=== PATIENT | male | born 1930 | race Caucasian/White ===

== ENCOUNTER → 2016-11-24 | Outpatient (CLI) | payer MEDICARE ==
[2016-11-24 09:43] LABS: CH 30.3; CHCM 32.6; HCT 45.2 % (39.0-53.0); HDW 2.59; HGB 14.8 gm/dL (13.0-17.5); MCH 30.6 pg (25.0-35.0); MCHC 32.8 g/dL (31.0-37.0); MCV 93.3 fL (80.0-100.0); RBC 4.84 m/uL (4.30-5.90); RDW 14.4 % (11.5-15.5); WBC 4.3 k/uL (3.8-10.6)
[2016-11-24 10:23] LABS: ALT 34 U/L (21-72); AST 28 U/L (17-59); Alkaline Phosphatase 56 U/L (38-126); Anion Gap 13 mmol/L; Blood Urea Nitrogen 13 mg/dL (9-20); Calcium 9.9 mg/dL (8.4-10.2); Carbon Dioxide 26 mmol/L (22-30); Chloride 102 mmol/L (98-107); Cholesterol 177 mg/dL (<200); Glucose 202 mg/dL (74-99); HDL Cholesterol 47 mg/dL (40-60); Non-African American GFR(MDRD) >60 (>60 ml/min/1.73 sqM); Potassium 4.5 mmol/L (3.5-5.1); Sodium 141 mmol/L (137-145); Total Bilirubin 0.8 mg/dL (0.2-1.3); Total Protein 7.3 g/dL (6.3-8.2); Triglycerides 154 mg/dL (<150)
[2016-11-24 12:36] LABS: Hemoglobin A1C 7.6 % (4.2-6.1)
== END | disposition home or self-care (01) ==
LOC: LABWHC1 08:22
PROVIDERS: ATTEND Internal Medicine
DX: E11.9 Type 2 diabetes mellitus without complications (principal); I25.10 Atherosclerotic heart disease of native coronary artery without angina pectoris; I11.9 Hypertensive heart disease without heart failure
CPT/HCPCS: 36415; 80053; 80061; 82043; 83036; 84439; 84443; 85027

== ENCOUNTER → 2017-04-19 | Outpatient (CLI) | payer MEDICARE ==
[2017-04-19 10:07] LABS: Blood Urea Nitrogen 17 mg/dL (9-20); Non-African American GFR(MDRD) >60 (>60 ml/min/1.73 sqM)
--- NOTE | 2017-04-19 12:00 | CT ---
EXAMINATION TYPE: CT angio chest DATE OF EXAM: 04/19/2017 COMPARISON: 04/13/17 HISTORY: Follow up thoracic aneurysm CT DLP: 1042 mGycm CONTRAST: CTA thoracic aorta with 3-D reconstruction is performed and without and with IV Contrast, patient inj ected with 100 mL of Omnipaque 350. Contrast CTA of the thoracic aorta was performed from the lung apex through the upper abdomen. 3D re construction imaging obtained at a separate workstation. CT Chest: THORACIC AORTA: Stable ascending thoracic aortic aneurysm at 4.1 x 4.1 cm versus 4.1 x 4.1 cm previou sly. There appears to be increasing size of the descending thoracic aortic aneurysm with current soledad urement of 6.2 x 6.1 cm versus 5.9 x 5.9 cm. There also appears to be increasing mural thrombus. LUNGS: The lungs are clear and free of infiltrate or atelectasis. No pulmonary nodule or mass is det ected. COPD changes. MEDIASTINUM: No evidence for mediastinal hematoma. The heart is not enlarged. No evidence for med iastinal mass or adenopathy. Stable right adrenal nodule measuring 2.6 cm. HILAR STRUCTURES: No evidence for mass. No hilar adenopathy is appreciated. OTHER: No change in right adrenal nodule measuring 2.9 cm. Multiple renal cysts noted. The gallbladde r is filled with calcified gallstones. IMPRESSION- 1. No slight increase in size and ascending thoracic aortic aneurysm as discussed above. 2. Stable ascending thoracic aortic aneurysm. 3. Stable right adrenal nodule, right thyroid nodule as well as renal cysts.
== END | disposition home or self-care (01) ==
LOC: RADCTMAIN 09:36
PROVIDERS: ATTEND Thoracic Surgery (Cardiothoracic Vascular Surgery)
DX: I71.2 Thoracic aortic aneurysm, without rupture (principal)
CPT/HCPCS: 82565; 84520; 71275; 36415; Q9967

== ENCOUNTER → 2017-09-20 | Outpatient (CLI) | payer MEDICARE ==
[2017-09-20 08:22] LABS: ALT 30 U/L (21-72); AST 25 U/L (17-59); Albumin 4.2 g/dL (3.5-5.0); Alkaline Phosphatase 53 U/L (38-126); Anion Gap 10 mmol/L; Blood Urea Nitrogen 19 mg/dL (9-20); Calcium 10.1 mg/dL (8.4-10.2); Carbon Dioxide 27 mmol/L (22-30); Chloride 104 mmol/L (98-107); Cholesterol 200 mg/dL (<200); Glucose 171 mg/dL (74-99); HDL Cholesterol 40 mg/dL (40-60); LDL Cholesterol,Calculated 123 mg/dL (0-99); Potassium 4.5 mmol/L (3.5-5.1); Sodium 141 mmol/L (137-145); Total Bilirubin 0.7 mg/dL (0.2-1.3); Total Protein 6.8 g/dL (6.3-8.2); Triglycerides 186 mg/dL (<150)
[2017-09-20 08:35] LABS: HCT 44.6 % (39.0-53.0); HGB 14.2 gm/dL (13.0-17.5); MCHC 31.9 g/dL (31.0-37.0); Mean Platelet Volume 8.4; Platelet Count 123 k/uL (150-450); WBC 4.3 k/uL (3.8-10.6)
[2017-09-20 08:37] LABS: T4, Free (Free Thyroxine) 0.88 ng/dL (0.78-2.19)
[2017-09-20 19:43] LABS: Hemoglobin A1C 7.8 % (4.0-6.0)
== END | disposition home or self-care (01) ==
LOC: LABWHC1 07:44
PROVIDERS: ATTEND Internal Medicine
DX: Z00.00 Encounter for general adult medical examination without abnormal findings (principal); E11.9 Type 2 diabetes mellitus without complications; I11.9 Hypertensive heart disease without heart failure; K21.9 Gastro-esophageal reflux disease without esophagitis; E78.2 Mixed hyperlipidemia
CPT/HCPCS: 36415; 80053; 80061; 82043; 82272; 82570; 83036; 84439; 84443; 85027

== ENCOUNTER 2018-03-05 18:59 | Inpatient (IN) | payer MEDICARE ==
--- NOTE | 2018-03-05 19:23 | ED ---
Neuro HPI - General Chief Complaint: Neuro Symptoms/Deficit Stated Complaint: cannot stand/High BP Time Seen by Provider: 03/05/18 19:13 Source: patient, family, RN notes reviewed Mode of arrival: wheelchair Limitations: no limitations - History of Present Illness Is the patient presenting with stroke symptoms?: No Initial Comments: This is a 70-year-old male who was brought in for evaluation by family due to difficulty walking all day pain is had in be lethargic. place a headache no nausea vomiting diarrhea no focal weakness is been somewhat diminished. His concern is due to history of aneurysms. No other complaints no history of trauma no falls - Related Data Home Medications: Home Medications Medication Instructions Recorded Confirmed Calcium Carb-Vit D 500Mg-200Un 500 mg PO DAILY 11/08/13 03/05/18 [Oscal 500+D] Enalapril [Vasotec] 10 mg PO BID 11/08/13 03/05/18 Fish Oil/Dha/Epa [Fish Oil 1,200 1 cap PO DAILY 11/08/13 03/05/18 mg Fish Oil] Levothyroxine Sodium [Synthroid] 50 mcg PO DAILY 11/08/13 03/05/18 Meloxicam 15 mg PO DAILY 11/08/13 03/05/18 Metoprolol Tartrate [Lopressor] 50 mg PO BID 11/08/13 03/05/18 Multivitamin [Multivitamins] 1 each PO DAILY 11/08/13 03/05/18 Simvastatin [Zocor] 20 mg PO HS 11/08/13 03/05/18 metFORMIN HCL [Glucophage] 1,000 mg PO BID 11/08/13 03/05/18 Aspirin 81 mg PO DAILY 03/05/18 03/05/18 Insulin NPH Hum/Reg Insulin Hm 30 unit SQ 03/05/18 03/05/18 [NovoLIN 70-30 100 UNIT/ML VIAL] Insulin NPH Hum/Reg Insulin Hm [facility] SQ [facility] 03/05/18 03/05/18 [NovoLIN 70-30 100 UNIT/ML VIAL] Lisinopril [Zestril] 20 mg PO DAILY 03/05/18 03/05/18 Omeprazole [PriLOSEC] 40 mg PO AC-BRKFST 03/05/18 03/05/18 Allergies/Adverse Reactions: Allergies Allergy/AdvReac Type Severity Reaction Status Date / Time acetaminophen [From Vicodin] Allergy Unknown Verified 03/05/18 19:12 hydrocodone bitartrate Allergy Unknown Verified 03/05/18 19:12 [From Vicodin] ketorolac Allergy Unknown Verified 03/05/18 19:12 meperidine HCl [From Demerol] Allergy Unknown Verified 03/05/18 19:12 propoxyphene Allergy Unknown Verified 03/05/18 19:12 Review of Systems ROS Statement: Those systems with pertinent positive or pertinent negative responses have been documented in the HPI. ROS Other: All systems not noted in ROS Statement are negative. General Exam - General Exam Comments Initial Comments: This is a well-developed well-nourished awake alert male Limitations: no limitations General appearance: alert, in no apparent distress Head exam: Present: atraumatic, normocephalic, normal inspection Eye exam: Present: normal appearance, PERRL, EOMI. Absent: scleral icterus, conjunctival injection, periorbital swelling ENT exam: Present: mucous membranes dry Neck exam: Present: normal inspection, full ROM, other (No stridor JVD or bruits ). Absent: tenderness, meningismus, lymphadenopathy Respiratory exam: Present: normal lung sounds bilaterally. Absent: respiratory distress, wheezes, rales, rhonchi, stridor Cardiovascular Exam: Present: regular rate, normal rhythm, normal heart sounds. Absent: systolic murmur, diastolic murmur, rubs, gallop, clicks GI/Abdominal exam: Present: soft, normal bowel sounds. Absent: distended, tenderness, guarding, rebound, rigid Extremities exam: Present: normal inspection, full ROM, normal capillary refill. Absent: tenderness, pedal edema, joint swelling, calf tenderness Back exam: Present: normal inspection Neurological exam: Present: alert, oriented X3, CN II-XII intact Psychiatric exam: Present: normal affect, normal mood Skin exam: Present: warm, dry, intact, normal color. Absent: rash Stroke MDM - Lab Data Result diagrams: 03/05/18 19:19 03/05/18 19:19 Lab Results 03/05/18 03/05/18 03/05/18 Range/Units 19:19 19:19 19:19 WBC 4.6 (3.8-10.6) k/uL RBC 4.81 (4.30-5.90) m/uL Hgb 14.2 (13.0-17.5) gm/dL Hct 44.6 (39.0-53.0) % MCV 92.7 (80.0-100.0) fL MCH 29.6 (25.0-35.0) pg MCHC 31.9 (31.0-37.0) g/dL RDW 14.9 (11.5-15.5) % Plt Count 114 L (150-450) k/uL Neutrophils % 71 % Lymphocytes % 17 % Monocytes % 7 % Eosinophils % 3 % Basophils % 0 % Neutrophils # 3.3 (1.3-7.7) k/uL Lymphocytes # 0.8 L (1.0-4.8) k/uL Monocytes # 0.3 (0-1.0) k/uL Eosinophils # 0.1 (0-0.7) k/uL Basophils # 0.0 (0-0.2) k/uL PT (9.0-12.0) sec INR (<1.2) APTT (22.0-30.0) sec Sodium 139 (137-145) mmol/L Potassium 4.5 (3.5-5.1) mmol/L Chloride 103 (98-107) mmol/L Carbon Dioxide 21 L (22-30) mmol/L Anion Gap 15 mmol/L BUN 24 H (9-20) mg/dL Creatinine 0.80 (0.66-1.25) mg/dL Est GFR (CKD-EPI)AfAm >90 (>60 ml/min/1.73 sqM) Est GFR (CKD-EPI)NonAf 81 (>60 ml/min/1.73 sqM) Glucose 148 H (74-99) mg/dL POC Glucose (mg/dL) (75-99) mg/dL POC Glu [employer] Sales Rep ID Calcium 10.5 H (8.4-10.2) mg/dL Total Bilirubin 0.6 (0.2-1.3) mg/dL AST 29 (17-59) U/L ALT 33 (21-72) U/L Alkaline Phosphatase 38 (38-126) U/L Total Creatine Kinase 210 H (55-170) U/L CK-MB (CK-2) 4.3 H* (0.0-2.4) ng/mL CK-MB (CK-2) Rel Index 2.0 Troponin I 0.021 (0.000-0.034) ng/mL Total Protein 7.0 (6.3-8.2) g/dL Albumin 4.4 (3.5-5.0) g/dL 03/05/18 03/05/18 Range/Units 19:19 19:19 WBC (3.8-10.6) k/uL RBC (4.30-5.90) m/uL Hgb (13.0-17.5) gm/dL Hct (39.0-53.0) % MCV (80.0-100.0) fL MCH (25.0-35.0) pg MCHC (31.0-37.0) g/dL RDW (11.5-15.5) % Plt Count (150-450) k/uL Neutrophils % % Lymphocytes % % Monocytes % % Eosinophils % % Basophils % % Neutrophils # (1.3-7.7) k/uL Lymphocytes # (1.0-4.8) k/uL Monocytes # (0-1.0) k/uL Eosinophils # (0-0.7) k/uL Basophils # (0-0.2) k/uL PT 11.5 (9.0-12.0) sec INR 1.2 H (<1.2) APTT 25.1 (22.0-30.0) sec Sodium (137-145) mmol/L Potassium (3.5-5.1) mmol/L Chloride (98-107) mmol/L Carbon Dioxide (22-30) mmol/L Anion Gap mmol/L BUN (9-20) mg/dL Creatinine (0.66-1.25) mg/dL Est GFR (CKD-EPI)AfAm (>60 ml/min/1.73 sqM) Est GFR (CKD-EPI)NonAf (>60 ml/min/1.73 sqM) Glucose (74-99) mg/dL POC Glucose (mg/dL) 143 H (75-99) mg/dL POC Glu [employer] Sales Rep ID Dahiana, Marni Calcium (8.4-10.2) mg/dL Total Bilirubin (0.2-1.3) mg/dL AST (17-59) U/L ALT (21-72) U/L Alkaline Phosphatase (38-126) U/L Total Creatine Kinase (55-170) U/L CK-MB (CK-2) (0.0-2.4) ng/mL CK-MB (CK-2) Rel Index Troponin I (0.000-0.034) ng/mL Total Protein (6.3-8.2) g/dL Albumin (3.5-5.0) g/dL - NIH Stroke Scale 1a. Level of Consciousness: (0) alert 1b. LOC Questions: (0) answers correctly 1c. LOC Commands: (0) performs tasks correctly 2. Best Gaze: (0) normal 3. Visual: (0) no visual loss 4. Facial Palsy: (0) normal symmetrical movement 5a. Motor Arm Left: (0) no drift 5b. Motor Arm Right: (0) no drift 6a. Motor Leg Left: (0) no drift 6b. Motor Leg Right: (0) no drift 7. Limb Ataxia: (0) absent 8. Sensory: (0) normal 9. Best Language: (0) no aphasia 10. Dysarthria: (1) mild/moderate dysarthria 11. Extinction/Inattention: (0) no abnormality - Medical Decision Making Reevaluation patient reveals no changes I did discuss the findings with the patient's family and the patient he will be admitted he does demonstrate evidence of pneumonia patient the x-ray report. He also demonstrate dehydration. He will be admitted case is discussed with Dr. Waldrop - EKG Data -: EKG Interpreted by In EKG shows normal: sinus rhythm (Sinus rhythm with first-degree AV block rate was 68. Interval 398 QRS duration 104 QT since QTC 4:30/457, incomplete right bundle-branch block race. [place]el RVH poor R-wave progression) Past Medical History Past Medical History: Diabetes Mellitus, Hyperlipidemia, Hypertension, Prostate Disorder, Thyroid Disorder Additional Past Medical History / Comment(s): aortic aneurysm, arthritis, hematemesis History of Any Multi-Drug Resistant Organisms: None Reported Additional Past Surgical History / Comment(s): left knee surg, aaa repair, prostate surg Past Anesthesia/Blood Transfusion Reactions: No Reported Reaction Past Psychological History: No Psychological Hx Reported Smoking Status: Former smoker Past Alcohol Use History: None Reported Past Drug Use History: None Reported - Past Family History Father Family Medical History: No Reported History Course Vital Signs 03/05/18 03/05/18 03/05/18 19:06 19:50 20:40 Temperature 98.1 F Pulse Rate 62 65 55 L Respiratory 16 18 18 Rate Blood Pressure 179/84 175/90 166/80 O2 Sat by Pulse 95 95 96 Oximetry 03/05/18 21:40 Temperature 98.2 F Pulse Rate 54 L Respiratory 18 Rate Blood Pressure 188/91 O2 Sat by Pulse 93 L Oximetry Disposition Clinical Impression: Pneumonia, Dehydration Disposition: ADMITTED IP TO THIS HOSP Condition: Stable Referrals: Len Johnson MD [Primary Care Provider] - 1-2 days
[2018-03-05 19:28] LABS: Basophils % (A) 0 %; Eosinophils # (A) 0.1 k/uL (0-0.7); Eosinophils % (A) 3 %; HCT 44.6 % (39.0-53.0); HGB 14.2 gm/dL (13.0-17.5); Lymphocytes # (A) 0.8 k/uL (1.0-4.8); Lymphocytes % (A) 17 %; MCH 29.6 pg (25.0-35.0); MCHC 31.9 g/dL (31.0-37.0); MCV 92.7 fL (80.0-100.0); Mean Platelet Volume 7.9; Monocytes # (A) 0.3 k/uL (0-1.0); Monocytes % (A) 7 %; Neutrophils # (A) 3.3 k/uL (1.3-7.7); Neutrophils % (A) 71 %; Platelet Count 114 k/uL (150-450); RBC 4.81 m/uL (4.30-5.90); RDW 14.9 % (11.5-15.5); WBC 4.6 k/uL (3.8-10.6)
[2018-03-05 19:38] LABS: ALT 33 U/L (21-72); AST 29 U/L (17-59); Albumin 4.4 g/dL (3.5-5.0); Alkaline Phosphatase 38 U/L (38-126); Anion Gap 15 mmol/L; Blood Urea Nitrogen 24 mg/dL (9-20); Calcium 10.5 mg/dL (8.4-10.2); Carbon Dioxide 21 mmol/L (22-30); Chloride 103 mmol/L (98-107); Glucose 148 mg/dL (74-99); Potassium 4.5 mmol/L (3.5-5.1); Sodium 139 mmol/L (137-145); Total Bilirubin 0.6 mg/dL (0.2-1.3)
[2018-03-05 19:58] LABS: Troponin I 0.021 ng/mL (0.000-0.034)
[2018-03-05 20:06] LABS: Glucose,Whole Blood 143 mg/dL (75-99)
[2018-03-05 20:07] LABS: INR 1.2 (<1.2); Partial Thromboplastin Time 25.1 sec (22.0-30.0); Prothrombin Time 11.5 sec (9.0-12.0)
--- NOTE | 2018-03-05 20:14 | CT ---
EXAMINATION TYPE: CT brain wo con for TPA DATE OF EXAM: 03/05/2018 HISTORY: Weakness and hypertension CT DLP: 1088 mGycm. Automated Exposure Control for Dose Reduction was Utilized. TECHNIQUE: CT scan of the head is performed without contrast. COMPARISON: None. FINDINGS: There is no acute intracranial hemorrhage or midline shift identified. There is diffuse v entricular and sulcal prominence consistent with diffuse age-related cerebral atrophy. There is low- attenuation in the periventricular white matter consistent with chronic small vessel ischemic change. The globes are intact. Minimal mucosal thickening in the right maxillary sinus. IMPRESSION: No acute intracranial hemorrhage or midline shift.
[2018-03-05 20:16] LABS: Creatine Kinase MB 4.3 ng/mL (0.0-2.4)
--- NOTE | 2018-03-05 20:21 | XR ---
EXAMINATION TYPE: XR chest 2V DATE OF EXAM: 03/05/2018 COMPARISON: CT chest 04/16/2015 and 04/19/2017 HISTORY: Pain TECHNIQUE: Frontal and lateral views of the chest are obtained. FINDINGS: Left lower lung opacity is evident. No pleural effusion or pneumothorax. There is evidence of aneurysmal dilatation of the descending thoracic aorta. IMPRESSION: 1. Left lower lung airspace opacity. Infectious etiology such as pneumonia should be considered. 2. Thoracic aortic aneurysm incompletely evaluated on this study.
[2018-03-05] MEDS ORDERED: cefTRIAXone IN SWFI 1,000 MG/10 ML SYRINGE IVP STA (20:54)
[2018-03-05] MEDS ORDERED: PNEUMONIA PROTOCOL UTILIZED 1 EACH MISC PO PRN (21:58)
[2018-03-05] MEDS ORDERED: AZITHROMYCIN 500 MG in SODIUM CHLORIDE 0.9% 250 ML IVPB STA (21:58)
[2018-03-05] MEDS ORDERED: LISINOPRIL 20 MG TAB PO STA (22:17)
[2018-03-05] MEDS ORDERED: METOPROLOL TARTRATE 50 MG TAB PO STA (22:18)
[2018-03-05] MEDS ORDERED: SODIUM CHLORIDE 0.9% 1,000 ML IV STA (22:22)
[2018-03-05] MEDS ORDERED: SODIUM CHLORIDE 0.9% 2,000 ML IV ONE (22:23)
[2018-03-05] MEDS ORDERED: ENALAPRILAT 1.25 MG/ML 1 ML VIAL IVP STA (23:00)
[2018-03-05] MEDS ORDERED: hydrALAZINE HCL 20 MG/ML 1 ML VIAL IVP STA (23:54)
[2018-03-06] MEDS: SODIUM CHLORIDE 0.9% 1,000 ML IV SCH ×2 (01:14→11:35)
[2018-03-06 01:28] VITALS: BMI 29.4
[2018-03-06] MEDS ORDERED: LISINOPRIL 20 MG TAB PO STA (02:04)
[2018-03-06 02:24] LABS: Glucose,Whole Blood 64 mg/dL (75-99)
[2018-03-06 02:24] LABS: Glucose,Whole Blood 81 mg/dL (75-99)
[2018-03-06 04:16] LABS: Appearance,Urine Clear (Clear); Bilirubin,Urine Negative (Negative); Blood,Urine Negative (Negative); Color,Urine Light Yellow; Glucose,Urine (UA) Negative (Negative); Ketones,Urine Negative (Negative); Leukocyte Esterase,Urine Negative (Negative); Nitrite,Urine Negative (Negative); PH, Urine 6.5 (5.0-8.0); Protein,Urine Negative (Negative); Specific Gravity,Urine 1.008 (1.001-1.035); Urobilinogen,Urine <2.0 mg/dL (<2.0)
[2018-03-06] MEDS: LEVOTHYROXINE 50 MCG TAB PO SCH (06:05)
[2018-03-06 07:20] LABS: Glucose,Whole Blood 104 mg/dL (75-99)
[2018-03-06] MEDS: metFORMIN 500 MG TAB PO SCH ×2 (07:43→22:28)
[2018-03-06] MEDS: INSULIN NPH/REG INSULIN 70/30 300 UNIT/3 ML VIAL SQ SCH (07:43)
[2018-03-06] MEDS: AZITHROMYCIN 500 MG TAB PO SCH (07:43)
[2018-03-06] MEDS: MELOXICAM 7.5 MG TAB PO SCH (07:44)
[2018-03-06] MEDS: PANTOPRAZOLE 40 MG TABLET PO SCH (07:44)
[2018-03-06] MEDS: ASPIRIN 81 MG PO SCH (07:44)
[2018-03-06] MEDS ORDERED: CALCIUM CARB-VIT D 500MG-200UN 1 EACH TAB PO SCH (09:00)
[2018-03-06] MEDS ORDERED: NON-FORMULARY DRUG (Fish Oil/Dha/Epa [Fish Oil 1,200 Mg Fish Oil] 1 CAP) PO SCH (09:00)
[2018-03-06] MEDS ORDERED: LISINOPRIL 20 MG TAB PO SCH (09:00)
[2018-03-06] MEDS ORDERED: METOPROLOL TARTRATE 50 MG TAB PO SCH (09:00)
[2018-03-06] MEDS ORDERED: NON-FORMULARY DRUG (Enalapril 10 MG) PO SCH (09:00)
--- NOTE | 2018-03-06 10:33 | XR ---
EXAMINATION TYPE: XR chest 1V portable DATE OF EXAM: 03/06/2018 HISTORY: Shortness of breath. COMPARISON: March 05, 2018 TECHNIQUE: Single view of the chest is submitted. FINDINGS: Demonstrated are scattered senescent parenchymal change. There is no evidence for focal infiltrate. The heart is stable. Hilar and mediastinal structures are within normal limits. Degenerative changes are seen of the dorsal spine. IMPRESSION: 1. Chronic changes without evidence for acute pulmonary disease.
[2018-03-06] MEDS: amLODIPine 5 MG TAB PO SCH ×2 (11:32→20:24)
[2018-03-06] MEDS: MULTIVITAMINS, THERA 1 EACH TAB PO SCH (11:32)
[2018-03-06] MEDS: HYDROCHLOROTHIAZIDE 25 MG TAB PO SCH (11:33)
[2018-03-06 11:59] LABS: Hemoglobin A1C 7.3 % (4.0-6.0)
[2018-03-06 12:10] LABS: Glucose,Whole Blood 114 mg/dL (75-99)
[2018-03-06] MEDS: INSULIN ASPART 100 UNIT/ML 1 ML 10 ML VIAL SQ SCH ×3 (12:32→22:28)
--- NOTE | 2018-03-06 12:56 | ECHOF ---
Referral Reason:murmur MEASUREMENTS -------- HEIGHT: 152.4 cm WEIGHT: 91.2 kg BP: IVSd: 1.7 cm (0.6 - 1.1) LVIDd: 3.6 cm (3.9 - 5.3) LVPWd: 1.6 cm (0.6 - 1.1) IVSs: 2.0 cm LVIDs: 2.6 cm LVPWs: 1.7 cm LA Diam: 3.7 cm (2.7 - 3.8) LAESV Index (A-L): 32.85 ml/m Ao Diam: 3.8 cm (2.0 - 3.7) AV Cusp: 1.6 cm (1.5 - 2.6) LA Diam: 4.4 cm (2.7 - 3.8) MV EXCURSION: 18.438 mm (> 18.000) MV EF SLOPE: 46 mm/s (70 - 150) EPSS: 0.3 cm MV E Anthony: 0.36 m/s MV DecT: 231 ms MV A Anthony: 0.87 m/s MV E/A Ratio: 0.42 RAP: 5.00 mmHg RVSP: 25.94 mmHg FINDINGS -------- Sinus rhythm. This was a technically adequate study. The left ventricular size is normal. There is severe concentric left ventricular hypertrophy. Ove rall left ventricular systolic function is normal with, an EF between 55 - 60 %. The right ventricle is normal in size. LA is midly dilated 29-33ml/m2. The right atrial size is normal. There is mild aortic valve sclerosis. There is no evidence of aortic regurgitation. Mild mitral annular calcification present. Mild mitral regurgitation is present. Mild tricuspid regurgitation present. There is no evidence of pulmonary hypertension. The right v entricular systolic pressure, as measured by Doppler, is 25.94mmHg. There is no pulmonic regurgitation present. The aortic root size is normal. There is no pericardial effusion. CONCLUSIONS -------- 1. Sinus rhythm. 2. The left ventricular size is normal. 3. There is severe concentric left ventricular hypertrophy. 4. Overall left ventricular systolic function is normal with, an EF between 55 - 60 %. 5. LA is midly dilated 29-33ml/m2. 6. There is mild aortic valve sclerosis. 7. Mild mitral annular calcification present. 8. Mild mitral regurgitation is present. 9. Mild tricuspid regurgitation present. 10. There is no evidence of pulmonary hypertension. 11. There is no pulmonic regurgitation present. 12. The aortic root size is normal. 13. There is no pericardial effusion. AGILE JAVA DEVELOPER: Zhanna Palma RDCS
--- NOTE | 2018-03-06 14:17 | P.CRDCN ---
History of Present Illness History of present illness: Mr. Marie is a pleasant 87-year-old male past medical history significant for diabetes mellitus, hypertension, dyslipidemia, BPH, history of prostate cancer, daily alcohol use and hypothyroidism. He denies history of coronary artery disease and does not follow with cardiology for any reason. His son and [id number] are at the bedside and are giving most of the information. Apparently the patient has been struggling with his blood pressure recently and he started seeing Dr. Yap with endocrinology. He made some adjustments to his medications in the form of discontinuing amlodipine and starting him on lisinopril. This was approximately 3 weeks ago. His son and [id number] her back in town this weekend and states that he seems extremely tired with an unsteady gait, flat affect and altered mental status. Blood pressures have been elevated as high as 226/100, 210/86 and 196/86. He denies symptoms of chest discomfort, shortness of breath, dizziness, palpitations, nausea, vomiting or diaphoresis. Echocardiogram obtained reveals preserved left ventricular systolic function with ejection fraction 55-60%, severe concentric left ventricular hypertrophy, mildly dilated left atrium, mild aortic valve sclerosis, mild MR and mild TR. EKG reveals sinus mechanism with first-degree AV block, incomplete right bundle branch block pattern and nonspecific T-wave abnormalities noted in the anterior leads. Chest x-ray reveals left lower lung air space disease infectious etiology possible pneumonia should be considered. Evidence of aneurysmal dilation of the descending thoracic aorta. Brain CT reveals no acute intracranial hemorrhage or midline shift. Laboratory data reviewed, hemoglobin 14.2, platelets 114, sodium 139, potassium 4.5, creatinine 0.8, lactic acid on admission 2. 4 repeat 1.3, cardiac enzymes negative 1. Current cardiac medications include enalapril 10 mg twice a day, aspirin 162 mg daily, simvastatin 20 mg daily, Lopressor 50 mg twice a day, lisinopril 20 mg daily. Review of Systems At the time of my exam: CONSTITUTIONAL: Denies fever. Denies chills. EYES: Denies blurred vision. Denies vision changes. Denies eye pain. EARS, NOSE, MOUTH & THROAT: Denies headache. Denies sore throat. Denies ear pain. CARDIOVASCULAR: Denies chest pain. Denies shortness of breath. Denies orthopnea. Denies PND. Denies palpitations. RESPIRATORY: Denies cough. GASTROINTESTINAL: Denies abdominal pain. Denies diarrhea. Denies constipation. Denies nausea. Denies vomiting. MUSCULOSKELETAL: Denies myalgias. INTEGUMENTARY: Denies pruitis. Denies rash. NEUROLOGIC: Denies numbness. Denies tingling. Denies weakness. PSYCHIATRIC: Denies anxiety. Denies depression. ENDOCRINE: Denies fatigue. Denies weight change. Denies polydipsia. Denies polyurina. GENITOURINARY: Denies burning, hematuria or urgency with micturation. HEMATOLOGIC: Denies history of anemia. Denies bleeding. Past Medical History Past Medical History: Diabetes Mellitus, Hyperlipidemia, Hypertension, Prostate Disorder, Thyroid Disorder Additional Past Medical History / Comment(s): Aortic aneurysm, arthritis, hematemesis, hypothyroid (goiter), enlarged prostate, current prostate cancer ( Dr. Roly ROWELL), retinopathy right eye (Dr. Varela/Jose), eye injection 3x right eye. History of Any Multi-Drug Resistant Organisms: None Reported Additional Past Surgical History / Comment(s): Left knee aspiration d/t swelling , AAA repair, prostate surgery. Past Anesthesia/Blood Transfusion Reactions: No Reported Reaction Past Psychological History: No Psychological Hx Reported Additional Psychological History / Comment(s): No history, but vctzhkov-gg-[id number] states since he became a he has shown signs of depression and drinks now. Smoking Status: Former smoker Past Alcohol Use History: Daily Additional Past Alcohol Use History / Comment(s): States he smokes a cigar rarely. States he drinks "a couple of bottles and a couple fifths a week". Past Drug Use History: None Reported - Past Family History Father Family Medical History: No Reported History Medications and Allergies Home Medications Medication Instructions Recorded Confirmed Type Calcium Carb-Vit D 500Mg-200Un 1 tab PO DAILY 11/08/13 03/06/18 History [Oscal 500+D] Fish Oil/Dha/Epa [Fish Oil 1,200 1 cap PO DAILY 11/08/13 03/05/18 History mg Fish Oil] Levothyroxine Sodium [Synthroid] 50 mcg PO DAILY 11/08/13 03/05/18 History Meloxicam 15 mg PO DAILY 11/08/13 03/05/18 History Metoprolol Tartrate [Lopressor] 50 mg PO BID 11/08/13 03/05/18 History Multivitamin [Multivitamins] 1 each PO DAILY 11/08/13 03/05/18 History Simvastatin [Zocor] 20 mg PO 11/08/13 03/05/18 History metFORMIN HCL [Glucophage] 1,000 mg PO BID 11/08/13 03/05/18 History Aspirin 162 mg PO DAILY 03/05/18 03/06/18 History Insulin NPH Hum/Reg Insulin Hm 30 unit SQ 03/05/18 03/05/18 History [NovoLIN 70-30 100 UNIT/ML VIAL] Insulin NPH Hum/Reg Insulin Hm 45 unit SQ [facility] 03/05/18 03/05/18 History [NovoLIN 70-30 100 UNIT/ML VIAL] Lisinopril [Zestril] 20 mg PO DAILY 03/05/18 03/05/18 History Omeprazole [P[facility]LOSEC] [facility] 03/05/18 03/05/18 History Enalapril [Vasotec] 10 mg PO BID 03/06/18 03/06/18 History Allergies Allergy/AdvReac Type Severity Reaction Status Date / Time No Known Allergies Allergy Verified 03/06/18 09:08 Physical Exam Vitals: Vital Signs Temp Pulse Pulse Pulse Resp BP BP 03/06/18 13:39 97.8 F 58 L 18 158/72 03/06/18 09:32 51 L 03/06/18 07:44 18 03/06/18 06:18 03/06/18 06:16 97.3 F L 53 L 18 03/06/18 05:54 50 L 03/06/18 02:09 97.6 F 60 16 198/87 03/06/18 02:02 03/06/18 00:29 160/54 03/05/18 23:52 62 18 226/100 03/05/18 23:12 98.3 F 52 L 18 196/89 03/05/18 22:15 52 L 18 210/86 03/05/18 21:40 98.2 F 54 L 18 188/91 03/05/18 20:40 55 L 18 166/80 03/05/18 19:50 65 18 175/90 03/05/18 19:06 98.1 F 62 16 179/84 BP Pulse Ox 03/06/18 13:39 97 08/27/18 09:32 178/73 03/06/18 07:44 03/06/18 06:18 96 03/06/18 06:16 187/92 90 L 03/06/18 05:54 210/90 97 03/06/18 02:09 93 L 03/06/18 02:02 190/80 03/06/18 00:29 03/05/18 23:52 95 03/05/18 23:12 94 L 03/05/18 22:15 94 L 03/05/18 21:40 93 L 03/05/18 20:40 96 03/05/18 19:50 95 03/05/18 19:06 95 Intake and Output 03/05/18 03/06/18 03/06/18 22:59 06:59 14:59 Intake Total 120 Balance 120 Intake: Oral 120 Other: Voiding Method Toilet Toilet Urinal Urinal # Voids 3 1 # Bowel Movements 1 Weight 93.44 kg 91.5 kg Blood pressure 158/72 heart rate 58 afebrile maintaining oxygen saturation on room air GENERAL: This is a 87-year-old male in no apparent distress at the time of my examination. Lethargic. HEENT: Head is atraumatic, normocephalic. Pupils are equal, round. Sclerae anicteric. Conjunctivae are clear. Mucous membranes of the mouth are moist. Neck is supple. There is no jugular venous distention. No carotid bruit is heard. LUNGS: Clear to auscultation no wheezes, rales or rhonchi. No chest wall tenderness is noted on palpation or with deep breathing. HEART: Regular rate and rhythm with systolic ejection murmur at the base, no rubs or gallops. S1 and S2 heard. ABDOMEN: Soft, nontender. Bowel sounds are heard. No organomegaly noted. EXTREMITIES: No evidence of peripheral edema and no calf tenderness noted. VASCULAR: Radial and dorsalis pedis pulses palpated, no evidence of clubbing. NEUROLOGIC: Patient is awake, alert and oriented x3. Results 03/05/18 19:19 03/05/18 19:19 Cardiac Enzymes 03/05/18 03/05/18 Range/Units 19:19 19:19 AST 29 (17-59) U/L CK-MB (CK-2) 4.3 H* (0.0-2.4) ng/mL Troponin I 0.021 (0.000-0.034) ng/mL Coagulation 03/05/18 Range/Units 19:19 PT 11.5 (9.0-12.0) sec APTT 25.1 (22.0-30.0) sec CBC 03/05/18 Range/Units 19:19 WBC 4.6 (3.8-10.6) k/uL RBC 4.81 (4.30-5.90) m/uL Hgb 14.2 (13.0-17.5) gm/dL Hct 44.6 (39.0-53.0) % Plt Count 114 L (150-450) k/uL Comprehensive Metabolic Panel 03/05/18 Range/Units 19:19 Sodium 139 (137-145) mmol/L Potassium 4.5 (3.5-5.1) mmol/L Chloride 103 (98-107) mmol/L Carbon Dioxide 21 L (22-30) mmol/L BUN 24 H (9-20) mg/dL Creatinine 0.80 (0.66-1.25) mg/dL Glucose 148 H (74-99) mg/dL Calcium 10.5 H (8.4-10.2) mg/dL AST 29 (17-59) U/L ALT 33 (21-72) U/L Alkaline Phosphatase 38 (38-126) U/L Total Protein 7.0 (6.3-8.2) g/dL Albumin 4.4 (3.5-5.0) g/dL Current Medications Generic Name Dose Route Start Last Admin Trade Name Laila PRN Reason Stop Dose Admin Amlodipine Besylate 5 mg 03/06/18 11:00 03/06/18 11:32 Norvasc PO 5 mg BID TIMO Administration Aspirin 81 mg 03/06/18 09:00 03/06/18 07:44 Aspirin PO 81 mg DAILY TIMO Administration Atorvastatin Calcium 10 mg 03/06/18 21:00 Lipitor PO HS TIMO Azithromycin 500 mg 03/06/18 09:00 03/06/18 07:43 Zithromax PO 500 mg DAILY TIMO Administration Calcium Carbonate 500 each 03/06/18 09:00 03/06/18 07:48 Oscal 500+D PO 500 each DAILY TIMO Administration Ceftriaxone Sodium 1,000 mg 03/06/18 22:00 Rocephin IVP Q24H [facility] Hydrochlorothiazide 25 mg 03/06/18 10:45 03/06/18 11:33 Hydrodiuril PO 25 mg DAILY TIMO Administration Sodium Chloride 1,000 mls @ 80 mls/hr 03/05/18 22:00 03/06/18 11:35 Saline 0.9% IV 80 mls/hr .[id number] TIMO Administration Insulin Aspart 0 unit 03/06/18 12:30 03/06/18 12:32 Novolog SQ Not Given ACHS [facility] Protocol Insulin Human Isoph/Insulin Regular 45 unit 03/06/18 07:30 03/06/18 07:43 Humulin 70/30 Vial SQ Not Given AC-BRKFST [facility] Insulin Human Isoph/Insulin Regular 30 unit 03/06/18 21:00 Humulin 70/30 Vial SQ [facility] Levothyroxine Sodium 50 mcg 03/06/18 06:00 03/06/18 06:05 Synthroid PO 50 mcg DAILY@0600 [facility] Administration Lisinopril 20 mg 03/06/18 21:00 Zestril PO BID [facility] Meloxicam 15 mg 03/06/18 09:00 03/06/18 07:44 Mobic PO 15 mg DAILY [facility] Administration Metformin HCl 1,000 mg 03/06/18 09:00 03/06/18 07:43 Glucophage PO 1,000 mg BID [facility] Administration Metoprolol Tartrate 25 mg 03/06/18 21:00 Lopressor PO BID [facility] Miscellaneous Information 1 each 03/05/18 21:58 Pneumonia Protocol Utilized PO ONCE PRN Per Protocol Multivitamins 1 each 03/06/18 12:00 03/06/18 11:32 Theragran PO 1 each DAILY@1200 [facility] Administration Pantoprazole Sodium 40 mg 03/06/18 07:30 03/06/18 07:44 Protonix PO 40 mg AC-BRKFST [facility] Administration Intake and Output 03/05/18 03/06/18 03/06/18 22:59 06:59 14:59 Intake Total 120 Balance 120 Intake: Oral 120 Other: Voiding Method Toilet Toilet Urinal Urinal # Voids 3 1 # Bowel Movements 1 Weight 93.44 kg 91.5 kg 03/05/18 19:19 03/05/18 19:19 Assessment and Plan Assessment: ASSESSMENT Hypertensive urgency Altered mental status Dyslipidemia Diabetes mellitus Hypothyroidism PLAN 2-D echocardiogram and Doppler study has been ordered and reviewed. Resume amlodipine at 5 mg twice a day, initiated on hydrochlorothiazide 25 mg daily, decrease metoprolol to 25 mg twice a day, continue lisinopril 20 mg twice a day and discontinue enalapril. Repeat BMP in the morning. Ongoing telemetry monitoring to assess for an acute bradycardia arrhythmia. Further recommendations to follow based upon clinical course. Thank you kindly for this consultation. Nurse Practitioner note has been reviewed, I agree with a documented findings and plan of care. Patient was seen and examined.
--- NOTE | 2018-03-06 17:03 | HP ---
HISTORY AND PHYSICAL DATE OF ADMISSION: 03/05/2018 CHIEF COMPLAINT: General weakness, severe extremely lethargy and difficulty in walking. HISTORY OF PRESENT ILLNESS: This is an 87-year-old white male who was admitted through the emergency room and the patient was seen by me on 03/06/2018. The patient was brought to the emergency room because he was getting extremely weak and lethargic and also had difficulty in walking. In the emergency room, the patient was found to be dehydrated and his chest x-ray showed left lower lobe opacity consistent with pneumonia and the patient was admitted to the hospital for further evaluation and treatment. In the ER, his CBC showed WBC count of 4.6, hemoglobin 14.2, platelet count 114, blood sugar 143, sodium 139, potassium 4.5, BUN 24, creatinine 0.80. Troponin within normal limits 0.021. CT scan of the brain did not show any acute intracranial process. PAST MEDICAL HISTORY: Reveals that he is known to have hypertensive cardiovascular disease. Diabetes mellitus and also he is known to have thoracic aortic aneurysm and he has been following with Dr. Zavala for this. The patient is also known to have degenerative arthritis of multiple joints, hypothyroidism, and gastroesophageal reflux disease, hyperlipidemia. CURRENT MEDICATIONS: At home reveal he has been on enalapril 10 mg p.o. b.i.d., Os-Best 500 mg plus vitamin D 1 daily, aspirin 162 mg p.o. daily. Novolin 70/30 30 units subcu daily at bedtime, and Novolin 70/30 45 units q. a.c. breakfast. Metformin 1000 mg p.o. b.i.d., simvastatin 20 mg daily at h.s., Prilosec 40 mg p.o. daily, Metoprolol 50 mg p.o. b.i.d., Mobic 15 mg p.o. daily, Synthroid 50 mcg p.o. daily. ALLERGIES: HE IS ALLERGIC TO VICODIN AND DEMEROL. SOCIAL HISTORY: He does not smoke and drinks alcohol occasionally. FAMILY HISTORY: Family history: The patient's recently. Family history of heart disease and hypertension. REVIEW OF SYSTEMS: Patient denies any headache. Appetite has been poor lately. Bowels regular. He denies any chest pain, and he has had some nonproductive cough. He has no abdominal pain. Had no polyuria or dysuria. He has no other neurological symptoms. PHYSICAL EXAMINATION: Reveals an 87-year-old white male, well nourished and well developed. Appears slightly dehydrated and he is alert and oriented. Temperature 98.1. His blood pressure in the ER was 188/91. Examination of the ENT: Negative. Neck is supple. There is no jugular venous distention. There is no goiter. There is no carotid bruit. Heart is in sinus rhythm. The EKG shows first-degree AV block. No acute changes. Lungs reveal diminished breath sounds both bases. Few scattered rales and rhonchi. Abdomen is soft and nontender. There is no mass palpable. Examination of the lower extremities reveal no pitting edema. Neurologic examination does not reveal any localizing signs. IMPRESSION: 1. Left lower lobe pneumonia. 2. Dehydration. 3. Hypertensive cardiovascular disease. 4. Hypothyroidism. 5. Diabetes mellitus. 6. Degenerative arthritis multiple joints. 7. Thoracic aortic aneurysm. 8. Hyperlipidemia. PLAN: Patient will be admitted to the hospital and will be started on IV antibiotics. He is currently receiving Zithromax and Rocephin. We will place him back on his previous home medications. Diabetes will be controlled with NovoLog sliding scale and his aitchbone breaker, Dr. aYp, apparently does not come to this hospital. We will also get cardiology consultation. Prognosis is guarded. The diagnosis, prognosis and therapeutic plans were discussed in detail with the patient and also with his son and [id number]. MMODL / IJN: [id number] /
[2018-03-06 17:16] LABS: Glucose,Whole Blood 177 mg/dL (75-99)
[2018-03-06] MEDS: METOPROLOL TARTRATE 25 MG TAB PO SCH (20:24)
[2018-03-06] MEDS: LISINOPRIL 20 MG TAB PO SCH (20:24)
[2018-03-06] MEDS: ATORVASTATIN 10 MG TAB PO SCH (20:25)
[2018-03-06] MEDS ORDERED: INSULIN NPH/REG INSULIN 70/30 300 UNIT/3 ML VIAL SQ SCH (21:00)
[2018-03-06 21:28] LABS: Glucose,Whole Blood 168 mg/dL (75-99)
[2018-03-06] MEDS ORDERED: cefTRIAXone IN SWFI 1,000 MG/10 ML SYRINGE IVP SCH (22:00)
[2018-03-07] MEDS: SODIUM CHLORIDE 0.9% 1,000 ML IV SCH ×2 (01:24→12:33)
[2018-03-07] MEDS ORDERED: amLODIPine 5 MG TAB PO STA (02:00)
[2018-03-07] MEDS: LORazepam 1 MG TAB PO PRN (02:12)
[2018-03-07 02:17] LABS: Glucose,Whole Blood 108 mg/dL (75-99)
[2018-03-07] MEDS: LEVOTHYROXINE 50 MCG TAB PO SCH (05:48)
[2018-03-07 07:32] LABS: Glucose,Whole Blood 68 mg/dL (75-99)
[2018-03-07] MEDS: INSULIN ASPART 100 UNIT/ML 1 ML 10 ML VIAL SQ SCH ×4 (07:35→21:33)
[2018-03-07] MEDS: INSULIN NPH/REG INSULIN 70/30 300 UNIT/3 ML VIAL SQ SCH (07:37)
[2018-03-07 07:41] LABS: Glucose,Whole Blood 79 mg/dL (75-99)
[2018-03-07] MEDS: metFORMIN 500 MG TAB PO SCH ×2 (07:54→21:33)
[2018-03-07] MEDS: AZITHROMYCIN 500 MG TAB PO SCH (07:54)
[2018-03-07] MEDS: HYDROCHLOROTHIAZIDE 25 MG TAB PO SCH (07:54)
[2018-03-07] MEDS: MELOXICAM 7.5 MG TAB PO SCH (07:55)
[2018-03-07] MEDS: CALCIUM CARB-VIT D 500MG-200UN 1 EACH TAB PO SCH (07:55)
[2018-03-07] MEDS: ASPIRIN 81 MG PO SCH (07:55)
[2018-03-07] MEDS: amLODIPine 5 MG TAB PO SCH ×2 (07:55→21:32)
[2018-03-07] MEDS: METOPROLOL TARTRATE 25 MG TAB PO SCH ×2 (07:55→21:33)
[2018-03-07] MEDS: LISINOPRIL 20 MG TAB PO SCH ×2 (07:55→21:33)
[2018-03-07] MEDS: PANTOPRAZOLE 40 MG TABLET PO SCH (07:55)
[2018-03-07 08:01] LABS: Anion Gap 7 mmol/L; Blood Urea Nitrogen 16 mg/dL (9-20); Calcium 9.6 mg/dL (8.4-10.2); Carbon Dioxide 29 mmol/L (22-30); Chloride 104 mmol/L (98-107); Glucose 69 mg/dL (74-99); Sodium 140 mmol/L (137-145)
[2018-03-07] MEDS ORDERED: amLODIPine 10 MG TAB PO SCH (09:00)
[2018-03-07] MEDS: hydrALAZINE HCL 25 MG TAB PO SCH ×2 (10:55→21:32)
--- NOTE | 2018-03-07 11:20 | PN ---
PROGRESS NOTE Mr. Marie is an 87-year-old male who presented with symptoms of progressive fatigue, lack of energy and hypertension. He is according to him, not feeling as tired. He has continued to have episode of hypertension. He has no dizziness. No palpitation. He has no syncope. He denies any nausea or vomiting. He continues to be on amlodipine 5 mg twice a day, aspirin once a day, Lipitor 10 mg daily, hydrochlorothiazide 25 mg daily, lisinopril 20 mg twice a day, and metoprolol 25 mg twice a day. PHYSICAL EXAMINATION: Blood pressure 166/70 with a heart in the 50s, blood pressure up in the 190s and low to 100 earlier. LUNGS: Clear. HEART: Regular rate and rhythm, S1, S2. No S3 with systolic murmur, no diastolic murmur. ABDOMEN: Soft, nontender. EXTREMITIES: No edema. LAB DATA: Revealed BUN and creatinine 16 and 0.76. Potassium of 4.01. IMPRESSION: 1. Hypertension remains elevated. 2. Bradycardia, most likely related to the beta jacob. 3. Progressive fatigue. RECOMMENDATION: I will add hydralazine 25 mg twice a day to his regimen. Continue on the present therapy. Continue to follow his blood pressure. He had an echocardiogram yesterday that revealed a overall preserved ventricular size and systolic function with mild mitral and tricuspid regurgitation. Those findings and recommendation were discussed with the patient and his family. MARTA / JARRET: [id number] /
[2018-03-07 12:08] LABS: Glucose,Whole Blood 92 mg/dL (75-99)
[2018-03-07] MEDS: MULTIVITAMINS, THERA 1 EACH TAB PO SCH (12:41)
--- NOTE | 2018-03-07 15:14 | PN ---
PROGRESS NOTE DATE OF SERVICE: 03/07/2018. HISTORY OF PRESENT ILLNESS: This is an 87-year-old white male who was brought to the emergency room with because of general weakness and lethargy and difficulty in walking and in the ER his CT scan of the brain did not show any acute process. Chest x-ray showed a possible left lower lobe opacity consistent with pneumonia. The patient was admitted to the hospital for further evaluation and treatment. The patient was started on IV antibiotics with Rocephin and and also he was given IV fluids to correct dehydration. The patient also was found to have very high blood pressure and patient was placed back on his previous home medications and he has been seeing Dr. Yap for control of his diabetes and apparently Dr. Yap does not come to [facility] for consultations. The patient was running low blood sugar and he was getting NovoLog 70/30 45 units in the morning and 35 units in the evening and he is getting hypoglycemia and will stop the evening dose of insulin and also cut down the morning NovoLog 70/30 to 35 units and if the morning blood sugar is below 120 the morning insulin also will be held. A repeat chest x-ray yesterday showed that the lungs are clear. No evidence of pneumonia and I reviewed the x-rays with the radiologist. Apparently he did not have pneumonia at the time of admission, and so we will discontinue the Rocephin. However, will continue Zithromax 500 mg p.o. daily and the patient also was seen by Dr. Wilkes in consultation with regards to his hypertension and his echocardiogram showed a normal ejection fraction and for his blood pressure, Dr. Garber added hydralazine to his current regimen of blood pressure medications. Otherwise vital signs are stable. The patient seems to be more alert and tolerating the increased activities. The prognosis is guarded. The diagnosis, prognosis and therapeutic plans were discussed in detail with the patient and also with his son and [id number]. MMODL / IJN: [id number] /
[2018-03-07 17:21] LABS: Glucose,Whole Blood 119 mg/dL (75-99)
[2018-03-07 21:10] LABS: Glucose,Whole Blood 159 mg/dL (75-99)
[2018-03-07] MEDS: ATORVASTATIN 10 MG TAB PO SCH (21:32)
[2018-03-08] MEDS: LORazepam 1 MG TAB PO PRN (00:20)
[2018-03-08 02:30] LABS: Glucose,Whole Blood 128 mg/dL (75-99)
[2018-03-08 05:14] LABS: Glucose,Whole Blood 133 mg/dL (75-99)
[2018-03-08] MEDS: LEVOTHYROXINE 50 MCG TAB PO SCH (06:26)
[2018-03-08] MEDS: LISINOPRIL 20 MG TAB PO SCH ×2 (06:27→20:39)
[2018-03-08] MEDS: hydrALAZINE HCL 25 MG TAB PO SCH (06:27)
[2018-03-08] MEDS: amLODIPine 5 MG TAB PO SCH ×2 (06:27→20:40)
[2018-03-08 07:12] LABS: Glucose,Whole Blood 119 mg/dL (75-99)
[2018-03-08] MEDS: INSULIN NPH/REG INSULIN 70/30 300 UNIT/3 ML VIAL SQ SCH (08:47)
[2018-03-08] MEDS: INSULIN ASPART 100 UNIT/ML 1 ML 10 ML VIAL SQ SCH ×4 (08:47→21:11)
[2018-03-08] MEDS: metFORMIN 500 MG TAB PO SCH ×2 (08:49→20:41)
[2018-03-08] MEDS: MELOXICAM 7.5 MG TAB PO SCH (08:49)
[2018-03-08] MEDS: PANTOPRAZOLE 40 MG TABLET PO SCH (08:49)
[2018-03-08] MEDS: HYDROCHLOROTHIAZIDE 25 MG TAB PO SCH (08:49)
[2018-03-08 08:50] LABS: Anion Gap 8 mmol/L; Blood Urea Nitrogen 16 mg/dL (9-20); Calcium 10.1 mg/dL (8.4-10.2); Carbon Dioxide 30 mmol/L (22-30); Chloride 99 mmol/L (98-107); Glucose 120 mg/dL (74-99); Potassium 4.4 mmol/L (3.5-5.1); Sodium 137 mmol/L (137-145)
[2018-03-08] MEDS: ASPIRIN 81 MG PO SCH (08:50)
[2018-03-08] MEDS: METOPROLOL TARTRATE 25 MG TAB PO SCH ×2 (08:50→20:40)
[2018-03-08] MEDS: CALCIUM CARB-VIT D 500MG-200UN 1 EACH TAB PO SCH (08:50)
[2018-03-08] MEDS: MULTIVITAMINS, THERA 1 EACH TAB PO SCH (08:50)
[2018-03-08] MEDS: AZITHROMYCIN 500 MG TAB PO SCH (08:50)
[2018-03-08] MEDS ORDERED: hydrALAZINE HCL 25 MG TAB PO STA (10:21)
--- NOTE | 2018-03-08 10:47 | P.PN ---
Subjective Mr. Marie is seen and examined resting comfortably in bed with [id number] at the bedside. He is much more alert and oriented today and conversing appropriately. Adjustments have been made to his anti-hypertensives. Blood pressures last night 188/90, 184/87. This morning 222/96 prior to am medications. Repeat after amlodipine 5, lisinopril 20 and hydralazine 25 mg 184/ 93 heart rate 60. Laboratory reviewed, 137, potassium 4.4, creatinine 0.75. He denies symptoms of chest pain, shortness of breath, palpitations, dizziness, nausea or vomiting. He started physical therapy yesterday. Objective - Vital Signs Vital signs: Vital Signs Temp 97.3 F L 03/08/18 06:38 Pulse 64 03/08/18 06:38 Resp 16 03/08/18 06:38 BP 222/96 03/08/18 06:38 Pulse Ox 96 03/08/18 00:53 Intake & Output 03/07/18 03/08/18 03/08/18 18:59 06:59 18:59 Other: Voiding Method Toilet Toilet # Voids 0 2 # Bowel Movements 0 - Exam GENERAL: No apparent distress at the time of my examination. HEENT: Head is atraumatic, normocephalic. Pupils are equal, round. Sclerae anicteric. Conjunctivae are clear. Mucous membranes of the mouth are moist. Neck is supple. There is no jugular venous distention. No carotid bruit is heard. LUNGS: Clear to auscultation no wheezes, rales or rhonchi. No chest wall tenderness is noted on palpation or with deep breathing. HEART: Regular rate and rhythm with systolic ejection murmur at the base, no rubs or gallops. S1 and S2 heard. EXTREMITIES: No evidence of peripheral edema and no calf tenderness noted. Pulses intact. - Labs CBC & Chem 7: 03/05/18 19:19 03/08/18 07:48 Labs: Abnormal Lab Results - Last 24 Hours (Table) 03/07/18 03/07/18 03/08/18 Range/Units 17:19 21:01 02:28 Glucose (74-99) mg/dL POC Glucose (mg/dL) 119 H 159 H 128 H (75-99) mg/dL 03/08/18 03/08/18 03/08/18 Range/Units 05:13 07:09 07:48 Glucose 120 H (74-99) mg/dL POC Glucose (mg/dL) 133 H 119 H (75-99) mg/dL Microbiology - Last 24 Hours (Table) 03/05/18 21:36 Blood Culture - Preliminary Blood No Growth after 48 hours Assessment and Plan Assessment: ASSESSMENT Hypertensive urgency Bradycardia Altered mental status, improved Dyslipidemia Diabetes mellitus Hypothyroidism History of daily heavy alcohol use per daughter in law. PLAN Increase hydralazine to 50 mg BID. Give additional dose of 25 mg now. Continue with physical therapy. Further recommendations to follow. Nurse Practitioner note has been reviewed, I agree with a documented findings and plan of care. Patient was seen and examined.
[2018-03-08 11:34] LABS: Glucose,Whole Blood 211 mg/dL (75-99)
--- NOTE | 2018-03-08 14:09 | PN ---
PROGRESS NOTE DATE OF SERVICE: 03/08/2018. HISTORY OF PRESENT ILLNESS: This is an 87-year-old white male who was brought to the emergency room with extreme weakness, difficulty in walking and severe lethargy and some degree of mental confusion on and off. The patient was in the ER. The patient had a CT of the head which was negative for any acute process and also he was also found to have extremely high blood pressure and the patient was admitted to the hospital for further evaluation and treatment and his chest x-ray showed possible left lower lobe infiltrate and the patient was started on antibiotics IV and he was getting Rocephin and Zithromax. The patient was placed back on his previous home medications. The patient continued to have elevated blood pressure and a cardiology consultation was obtained. Environmental Lawyer, Dr. Garber is following the patient and the patient has been on Norvasc and Dr. Garber added hydralazine yesterday, but today his blood pressure is still high at 1 time it was 220/[address] Garber increased the hydralazine to 50 mg p.o. b.i.d. the patient's followup x-ray showed no acute process in the lungs and apparently the radiologist felt that even the 1st chest x-ray also did not show any acute process. So, IV Rocephin discontinued and he is currently getting Zithromax 500 mg p.o. daily. His diabetes is being controlled with NovoLog sliding scale. The patient still has some mental confusion on and off and he is getting physical therapy and occupational therapy. His prognosis is guarded. Discussed his condition with the patient's son and daughter in law. The patient apparently needs inpatient rehab when he is discharged and the meeting/event planner is making arrangements for him to be in transferred to [facility] rehab unit when discharged. MMODL / IJN: [id number] /
[2018-03-08 17:10] LABS: Glucose,Whole Blood 138 mg/dL (75-99)
[2018-03-08 20:29] LABS: Glucose,Whole Blood 193 mg/dL (75-99)
[2018-03-08] MEDS: ATORVASTATIN 10 MG TAB PO SCH (20:39)
[2018-03-08] MEDS: hydrALAZINE HCL 50 MG TAB PO SCH (20:41)
[2018-03-08] MEDS ORDERED: amLODIPine 5 MG TAB PO SCH (23:45)
[2018-03-09] MEDS: LORazepam 1 MG TAB PO PRN ×2 (00:37→20:02)
[2018-03-09] MEDS: hydrALAZINE HCL 50 MG TAB PO SCH (05:22)
[2018-03-09] MEDS: LEVOTHYROXINE 50 MCG TAB PO SCH (06:17)
[2018-03-09 07:35] LABS: Glucose,Whole Blood 126 mg/dL (75-99)
[2018-03-09] MEDS: INSULIN ASPART 100 UNIT/ML 1 ML 10 ML VIAL SQ SCH ×4 (07:52→21:04)
[2018-03-09] MEDS: INSULIN NPH/REG INSULIN 70/30 300 UNIT/3 ML VIAL SQ SCH (07:54)
[2018-03-09] MEDS: PANTOPRAZOLE 40 MG TABLET PO SCH (07:54)
[2018-03-09] MEDS: METOPROLOL TARTRATE 25 MG TAB PO SCH ×2 (07:54→20:03)
[2018-03-09] MEDS: metFORMIN 500 MG TAB PO SCH ×2 (07:55→20:02)
[2018-03-09] MEDS: MELOXICAM 7.5 MG TAB PO SCH (07:55)
[2018-03-09] MEDS: amLODIPine 5 MG TAB PO SCH ×2 (07:55→20:02)
[2018-03-09] MEDS: AZITHROMYCIN 500 MG TAB PO SCH (07:55)
[2018-03-09] MEDS: ASPIRIN 81 MG PO SCH (07:55)
[2018-03-09] MEDS: CALCIUM CARB-VIT D 500MG-200UN 1 EACH TAB PO SCH (07:55)
[2018-03-09] MEDS: HYDROCHLOROTHIAZIDE 25 MG TAB PO SCH (07:56)
[2018-03-09] MEDS: LISINOPRIL 20 MG TAB PO SCH ×2 (07:56→20:02)
[2018-03-09 11:47] LABS: Glucose,Whole Blood 71 mg/dL (75-99)
[2018-03-09] MEDS: MULTIVITAMINS, THERA 1 EACH TAB PO SCH (11:48)
[2018-03-09] MEDS ORDERED: hydrALAZINE HCL 25 MG TAB PO STA (14:54)
--- NOTE | 2018-03-09 14:59 | P.PN ---
Subjective Mr. Marie is seen and examined. He has been up working with physical therapy. He denies chest pain, shortness of breath, dizziness or palpitations. Blood pressures 160-180 systolic with a heart rate in the 50s. Hydralazine was increased yesterday to 50 mg twice a day. He became confused and agitated overnight per nursing staff. Plan is for discharge to rehab facility from the hospital for ongoing therapy. Objective - Vital Signs Vital signs: Vital Signs Temp 97.5 F L 03/09/18 07:00 Pulse 63 03/09/18 07:00 Resp 18 03/09/18 07:00 BP 182/88 03/09/18 07:00 Pulse Ox 91 L 03/09/18 07:00 Intake & Output 03/08/18 03/09/18 03/09/18 18:59 06:59 18:59 Intake Total 200 200 Balance 200 200 Intake: Oral 200 200 Other: # Voids 2 3 # Bowel Movements 1 - Exam GENERAL: No apparent distress at the time of my examination. HEENT: Head is atraumatic, normocephalic. Pupils are equal, round. Sclerae anicteric. Conjunctivae are clear. Mucous membranes of the mouth are moist. Neck is supple. There is no jugular venous distention. No carotid bruit is heard. LUNGS: Clear to auscultation no wheezes, rales or rhonchi. No chest wall tenderness is noted on palpation or with deep breathing. HEART: Regular rate and rhythm with systolic ejection murmur at the base, no rubs or gallops. S1 and S2 heard. EXTREMITIES: No evidence of peripheral edema and no calf tenderness noted. Pulses intact. - Labs CBC & Chem 7: 03/05/18 19:19 03/08/18 07:48 Labs: Abnormal Lab Results - Last 24 Hours (Table) 03/08/18 03/08/18 03/09/18 Range/Units 17:02 20:27 07:28 POC Glucose (mg/dL) 138 H 193 H 126 H (75-99) mg/dL 03/09/18 Range/Units 11:45 POC Glucose (mg/dL) 71 L (75-99) mg/dL Microbiology - Last 24 Hours (Table) 03/05/18 21:36 Blood Culture - Preliminary Blood No Growth after 72 hours Assessment and Plan Assessment: ASSESSMENT Hypertensive urgency Bradycardia Altered mental status, improved Dyslipidemia Diabetes mellitus Hypothyroidism History of daily heavy alcohol use per daughter in law. PLAN Increase hydralazine to 75 mg BID. Give additional dose of 25 mg now. He can be transferred to rehab facility as soon as it appropriate per primary medical team. Cardiac medication recommendations for discharge amlodipine 5 mg BID, hydralazine 75 mg BID, lopressor 25 BID, lisinopril 20 mg BID and hydrochlorothiazide 25 mg. Ongoing adjustments can be made as an outpatient. Follow up with Dr. Garber in 2-3 weeks. Nurse Practitioner note has been reviewed, I agree with a documented findings and plan of care. Patient was seen and examined.
--- NOTE | 2018-03-09 15:28 | PN ---
PROGRESS NOTE DATE OF SERVICE: 03/09/2018 This is an 87-year-old white male who was brought to the emergency room with severe weakness, difficulty in walking and lethargy and mental confusion. In the emergency room, he was found to have possible left lower lobe pneumonia and he was also found to be dehydrated and he had markedly elevated blood pressure and patient was admitted to the hospital for further evaluation and treatment. The patient was started on IV antibiotics and IV fluids to correct the dehydration. [facility] was consulted with regard to his uncontrolled hypertension. Dr. Garber saw the patient and apparently ultrasound showed the ejection fraction to be within normal limits. The patient was continued on his previous home medications and he was receiving enalapril and Norvasc. Dr. Garber added hydralazine initially 25 mg p.o. b.i.d. and then this was increased to 50 mg p.o. b.i.d., but the patient's blood pressure still remains high today Dr. Garber increased the hydralazine to 75 mg p.o. b.i.d. progress chest x-ray showed no acute processes in the lung and the IV Rocephin was discontinued. The patient was continued on Zithromax p.o. 500 mg p.o. daily. The patient also is getting physical therapy and otherwise, the patient got confused on and off. Otherwise, the patient denies any chest pain, shortness of breath. The patient has been living alone and looking at the patient's general condition and the extreme weakness, the family feels that he is not able to live alone and he will be transferred to an inpatient rehab physical facility accordingly and arrangements are being made for him to be transferred to [facility] rehab unit once his condition becomes stable. MMODL / IJN: [id number] /
--- NOTE | 2018-03-09 16:34 | DS ---
DISCHARGE SUMMARY DATE OF ADMISSION: 03/05/2018 DATE OF DISCHARGE: 03/09/2018. DISCHARGE DIAGNOSES: 1. Possible left lower lobe pneumonia. 2. Hypertensive urgency. 3. Hypertensive cardiovascular disease. 4. Dehydration. 5. Hypothyroidism. 6. Diabetes. 7. 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 8. Thoracic aortic aneurysm. 9. Hyperlipidemia. 10.History of prostate cancer. HISTORY OF PRESENT ILLNESS: This is an 87-year-old white male who was admitted through the emergency room. The patient was brought to the emergency room because he was getting extremely weak and lethargic and also had some difficulty in walking and mental confusion on and off. In the emergency room, he was found to be dehydrated and his chest x-ray showed a left lower lobe opacity consistent with pneumonia. The patient was admitted to the hospital for further evaluation and treatment. In the ER his CBC showed WBC count of 4.6, hemoglobin 14.2, platelet count 114, and blood sugar 143, sodium 139, potassium 4.5, BUN 24, creatinine 0.80. Troponin was within normal limits, which was 0.021. A CT scan of the brain did not show any acute intracranial process. Patient was admitted to the hospital for further evaluation and treatment. For details of the physical examination at the time of admission, please refer to the history and physical. HOSPITAL COURSE: The patient was started on IV antibiotics. Initially he received Rocephin and Zithromax IV and the patient was placed back on his previous home medications. Diabetes was controlled with NovoLog sliding scale. The patient also has been on NovoLog 70/30 at home, and because he was getting hypoglycemia, the dose of the NovoLog 70/30 was reduced. The patient's blood pressure was remaining high and cardiology consultation was obtained. He was seen by Dr. Garber. The patient was placed back on his previous blood pressure medications, including Norvasc, enalapril, and Lopressor. As his blood pressure continued to remain high, Dr. Garber started him on hydralazine, the dose of which was being adjusted. The patient currently is receiving hydralazine 75 mg p.o. b.i.d. The patient also received physical therapy and occupational therapy. The patient was found to be confused on and off. The family feels that the patient is not able to live alone when discharged. They requested him to be transferred to [facility], rehab unit, when discharged. Accordingly, arrangements are being made. If his blood pressure becomes to normal and his condition remains stable, he will be discharged on 03/10/2018 [facility] He will continue: 1. Norvasc 5 mg p.o. b.i.d. 2. Aspirin 81 mg p.o. daily. 3. Zithromax 500 mg p.o. daily for 5 more days. 4. Hydralazine 75 mg p.o. b.i.d. 5. Will continue NovoLog sliding scale. The patient will also get NovoLog 70/30, units daily in the morning before breakfast if the CBG in the morning is above 120. 6. Synthroid 50 mcg p.o. daily. 7. Ativan 1 mg p.o. q.6 hours p.r.n. for severe anxiety. 8. Metformin 1000 mg p.o. b.i.d. 9. Multivitamin 1 daily. 10.Protonix 40 mg p.o. before breakfast. The Lopressor has been discontinued because of bradycardia. 1. He will also continue with hydrochlorothiazide 25 mg p.o. daily. 2. Lisinopril 20 mg p.o. b.i.d. He will continue physical therapy and occupation therapy. Also he will continue to follow with Dr. Yap, his watch parts grinder. He will be followed by me in the detention for his medical problems. MMODL / IJN: [id number] /
[2018-03-09 17:02] LABS: Glucose,Whole Blood 107 mg/dL (75-99)
[2018-03-09] MEDS: ATORVASTATIN 10 MG TAB PO SCH (20:03)
[2018-03-09] MEDS: hydrALAZINE HCL 25 MG TAB PO SCH (20:03)
[2018-03-09 20:44] LABS: Glucose,Whole Blood 145 mg/dL (75-99)
[2018-03-09 22:44] VITALS: RESP 18
[2018-03-10 02:08] LABS: Glucose,Whole Blood 114 mg/dL (75-99)
[2018-03-10 06:00] VITALS: BP 144/81; PULSE 61; TEMP 97.6
[2018-03-10] MEDS: LEVOTHYROXINE 50 MCG TAB PO SCH (06:14)
[2018-03-10 07:20] LABS: Glucose,Whole Blood 132 mg/dL (75-99)
[2018-03-10] MEDS: INSULIN ASPART 100 UNIT/ML 1 ML 10 ML VIAL SQ SCH ×2 (07:41→12:29)
[2018-03-10] MEDS: INSULIN NPH/REG INSULIN 70/30 300 UNIT/3 ML VIAL SQ SCH (07:42)
--- NOTE | 2018-03-10 09:10 | P.PN ---
Subjective Mr. Marie is seen and examined sitting up in bed with family at he bedside. Blood pressure this morning 144/81 heart rate 61. He states he is feeling much better and less fatigued. He plans to go to [place] for physical therapy. He denies chest pain, shortness of breath, dizziness, palpitations or nausea/ vomiting. Maintained on hydralazine 75 mg BID, hydrochlorothiazide 25 mg daily, lisinopril 20 mg BID and lopressor 25 mg BID. Objective - Vital Signs Vital signs: Vital Signs Temp 97.6 F 03/10/18 05:59 Pulse 61 03/10/18 05:59 Resp 18 03/10/18 05:59 BP 144/81 03/10/18 05:59 Pulse Ox 93 L 03/10/18 05:59 Intake & Output 03/09/18 03/10/18 03/10/18 18:59 06:59 18:59 Intake Total 200 Balance 200 Weight 91.5 kg Intake: Oral 200 Other: Voiding Method Toilet # Voids 2 3 # Bowel Movements 0 0 - Exam GENERAL: No apparent distress at the time of my examination. HEENT: Head is atraumatic, normocephalic. Pupils are equal, round. Sclerae anicteric. Conjunctivae are clear. Mucous membranes of the mouth are moist. Neck is supple. There is no jugular venous distention. No carotid bruit is heard. LUNGS: Clear to auscultation no wheezes, rales or rhonchi. No chest wall tenderness is noted on palpation or with deep breathing. HEART: Regular rate and rhythm with systolic ejection murmur at the base, no rubs or gallops. S1 and S2 heard. EXTREMITIES: No evidence of peripheral edema and no calf tenderness noted. Pulses intact. - Labs CBC & Chem 7: 03/05/18 19:19 03/08/18 07:48 Labs: Abnormal Lab Results - Last 24 Hours (Table) 03/09/18 03/09/18 03/09/18 Range/Units 11:45 16:57 20:43 POC Glucose (mg/dL) 71 L 107 H 145 H (75-99) mg/dL 03/10/18 03/10/18 Range/Units 02:06 07:15 POC Glucose (mg/dL) 114 H 132 H (75-99) mg/dL Microbiology - Last 24 Hours (Table) 03/05/18 21:36 Blood Culture - Preliminary Blood No Growth after 96 hours Assessment and Plan Assessment: ASSESSMENT Hypertensive urgency Bradycardia Altered mental status, improved Dyslipidemia Diabetes mellitus Hypothyroidism History of daily heavy alcohol use per daughter in law. PLAN Stable from a cardiac perspective on current regimen. Discussed with family blood pressure monitoring at rehab and bringing a trend with them to follow up appointment with Dr. Garber. Questions answered appropriately. Follow up appointment made with Dr. Garber 03/22 at 0945. Nurse Practitioner note has been reviewed, I agree with a documented findings and plan of care. Patient was seen and examined.
[2018-03-10] MEDS: ASPIRIN 81 MG PO SCH (09:18)
[2018-03-10] MEDS: AZITHROMYCIN 500 MG TAB PO SCH (09:18)
[2018-03-10] MEDS: PANTOPRAZOLE 40 MG TABLET PO SCH (09:18)
[2018-03-10] MEDS: amLODIPine 5 MG TAB PO SCH (09:18)
[2018-03-10] MEDS: CALCIUM CARB-VIT D 500MG-200UN 1 EACH TAB PO SCH (09:19)
[2018-03-10] MEDS: hydrALAZINE HCL 25 MG TAB PO SCH (09:19)
[2018-03-10] MEDS: HYDROCHLOROTHIAZIDE 25 MG TAB PO SCH (09:19)
[2018-03-10] MEDS: LISINOPRIL 20 MG TAB PO SCH (09:20)
[2018-03-10] MEDS: MELOXICAM 7.5 MG TAB PO SCH (09:20)
[2018-03-10] MEDS: metFORMIN 500 MG TAB PO SCH (09:21)
[2018-03-10] MEDS: METOPROLOL TARTRATE 25 MG TAB PO SCH (09:21)
[2018-03-10 11:57] LABS: Glucose,Whole Blood 138 mg/dL (75-99)
[2018-03-10] MEDS: MULTIVITAMINS, THERA 1 EACH TAB PO SCH (12:36)
== END 2018-03-10 14:20 | DRG 304 ==
LOC: EC 18:59 → 4MS4W 21:58
PROVIDERS: ADMIT Internal Medicine; ATTEND Internal Medicine
DX: I16.0 Hypertensive urgency (principal); J18.9 Pneumonia, unspecified organism; E78.5 Hyperlipidemia, unspecified; E03.9 Hypothyroidism, unspecified; E11.319 Type 2 diabetes mellitus with unspecified diabetic retinopathy without macular edema; E11.649 Type 2 diabetes mellitus with hypoglycemia without coma; E86.0 Dehydration; I11.9 Hypertensive heart disease without heart failure; I08.3 Combined rheumatic disorders of mitral, aortic and tricuspid valves; I44.0 Atrioventricular block, first degree; I45.10 Unspecified right bundle-branch block; I71.2 Thoracic aortic aneurysm, without rupture; K21.9 Gastro-esophageal reflux disease without esophagitis; E04.9 Nontoxic goiter, unspecified; M19.90 Unspecified osteoarthritis, unspecified site; T44.7X5A Adverse effect of beta-adrenoreceptor antagonists, initial encounter; R00.1 Bradycardia, unspecified; N40.0 Benign prostatic hyperplasia without lower urinary tract symptoms; R29.701 NIHSS score 1; Z79.4 Long term (current) use of insulin; Z79.82 Long term (current) use of aspirin; Z79.899 Other long term (current) drug therapy; Z82.49 Family history of ischemic heart disease and other diseases of the circulatory system; Z85.46 Personal history of malignant neoplasm of prostate; Z86.79 Personal history of other diseases of the circulatory system; Z87.891 Personal history of nicotine dependence; Z88.6 Allergy status to analgesic agent; Z88.5 Allergy status to narcotic agent; Z88.8 Allergy status to other drugs, medicaments and biological substances; Z79.890 Hormone replacement therapy
CPT/HCPCS: 36415; 70450; 71045; 71046; 80048; 80053; 81003; 82550; 82553; 83036; 83605; 84484; 85025; 85610; 85730; 87040; 93005; 93306; 96365; 96366; 96375; 99285

== ENCOUNTER 2018-08-25 12:57 | Inpatient (IN) | payer MEDICARE ==
[2018-08-25] MEDS ORDERED: SODIUM CHLORIDE 0.9% 500 ML 500 ML IV STA (13:37)
[2018-08-25] MEDS ORDERED: IPRATROPIUM-ALBUTEROL 3 ML NEB INHALATION STA (13:37)
[2018-08-25 14:24] LABS: Anion Gap 11 mmol/L; Blood Urea Nitrogen 22 mg/dL (9-20); Calcium 10.2 mg/dL (8.4-10.2); Carbon Dioxide 26 mmol/L (22-30); Chloride 97 mmol/L (98-107); Glucose 164 mg/dL (74-99); Sodium 134 mmol/L (137-145); Total Bilirubin 1.1 mg/dL (0.2-1.3); Total Protein 6.9 g/dL (6.3-8.2)
[2018-08-25 14:25] LABS: Basophils % (A) 0 %; Eosinophils # (A) 0.1 k/uL (0-0.7); Eosinophils % (A) 1 %; HCT 35.5 % (39.0-53.0); HGB 11.7 gm/dL (13.0-17.5); Lymphocytes # (A) 0.5 k/uL (1.0-4.8); Lymphocytes % (A) 11 %; MCH 29.2 pg (25.0-35.0); MCHC 32.9 g/dL (31.0-37.0); MCV 88.8 fL (80.0-100.0); Mean Platelet Volume 7.7; Monocytes # (A) 0.6 k/uL (0-1.0); Monocytes % (A) 13 %; Neutrophils # (A) 3.4 k/uL (1.3-7.7); Neutrophils % (A) 74 %; Platelet Count 170 k/uL (150-450); RDW 14.8 % (11.5-15.5); WBC 4.6 k/uL (3.8-10.6)
[2018-08-25 14:29] LABS: AST 20 U/L (17-59); Magnesium 1.5 mg/dL (1.6-2.3); Potassium 4.4 mmol/L (3.5-5.1)
[2018-08-25 14:30] LABS: ALT 26 U/L (21-72); Alkaline Phosphatase 29 U/L (38-126)
[2018-08-25 14:32] LABS: Creatine Kinase 125 U/L (55-170)
--- NOTE | 2018-08-25 14:35 | XR ---
EXAMINATION TYPE: XR chest 2V DATE OF EXAM: 08/25/2018 COMPARISON: 03/06/2018 HISTORY: Weakness, cough and shortness of breath. History of aortic aneurysm and hypertension. TECHNIQUE: Frontal and lateral views of the chest are obtained. FINDINGS: There is new mediastinal widening in comparison to the prior of 03/06/2018. The patient was rotated on the prior examination to a similar degree as on the current examination. No new focal con solidation is seen however scattered subsegmental areas of linear platelike atelectasis are noted thr oughout the lungs. Cardia mediastinal silhouette is enlarged. No sizable pneumothorax or pleural effu bijal. IMPRESSION: 1. Descending thoracic aorta appears aneurysmal and there is suspicion for ascending thoracic aortic aneurysm. Finding does appear increased in size from the prior of 03/06/2018. This could be assessed w ith CT. 2. Scattered areas of platelike subsegmental atelectasis. No focal consolidation to suggest pneumonia .
[2018-08-25 14:44] LABS: INR 0.9 (<1.2)
[2018-08-25 14:45] LABS: Partial Thromboplastin Time 23.2 sec (22.0-30.0); Prothrombin Time 10.2 sec (9.0-12.0)
[2018-08-25 14:46] LABS: Creatine Kinase MB 1.4 ng/mL (0.0-2.4); Troponin I <0.012 ng/mL (0.000-0.034)
--- NOTE | 2018-08-25 15:40 | CT ---
EXAMINATION TYPE: CT angio thor/abd pel aorta DATE OF EXAM: 08/25/2018 3:26 PM COMPARISON: 02/19/2013 HISTORY: Cough, weakness, and pain CT DLP: 1920.3 mGycm Automated exposure control for dose reduction was used. TECHNIQUE: Performed without and with IV Contrast, patient injected with 100 mL of Isovue 370. Three-D reconstructed images performed by the technologist on a separate computer are reviewed.. FINDINGS: The ascending thoracic aorta at the level the main pulmonary artery is 3.9 cm. Previous measurement 3 .9 cm. The main pulmonary artery the bifurcation is 4.5 cm. Previous measurement 4.1 cm. Correlate fo r pulmonary hypertension. Moderate coronary artery calcification is present. There is tortuous aorta. The descending thoracic aorta has a focal aneurysm above the diaphragm with a transverse dimension o f 6.4 cm. Previous 2012 measurement 5.1 cm Vascular calcification is within the aorta. An aortic stent appears to be present. This may be calcification of the wall. Calcification is withi n the common iliac vessels. Streak opacities within the lingula. Scattered small lymph nodes are within the mediastinum There is thickening of the right adrenal gland with transverse dimension 1.8 cm. Left adrenal gland i s normal. There is an exophytic cyst superior pole with measurement 2.4 cm and 12 Hounsfield units. S ubtle hypodensities within the cortex of the left upper pole kidney measuring 1.1 cm. Series 201 imag e 52. There may be a 1.0 cm exophytic cyst on the left kidney. There is a small hyperdensity in the i nferior lateral aspect right kidney measuring 1.4 cm. Series 201 image 63. Multiple gallstones are present. There is increased density within the subcutaneous tissues of the an terior abdomen correlate for subcutaneous injections. Urinary bladder is partially distended. There is a subtle masslike area within the right posterior la teral urinary bladder. Additional workup is recommended. The prostate is prominent. CTA: Following contrast administration, no dissection is evident. Celiac axis and superior mesenteric artery are normal. No extravasation of contrast is evident suggest endovascular leak. IMPRESSION: 1. INCREASING PULMONARY HYPERTENSION. 2. INCREASING DESCENDING THORACIC AORTIC ANEURYSM. 3. NO ENDOVASCULAR LEAK WITHIN THE ABDOMEN. 4. CHOLELITHIASIS. 5. CYSTS, POSSIBLE HYPERDENSITY WITHIN THE KIDNEYS DISCUSSED ABOVE. SOME OF THESE ARE NONSPECIFIC AND ADDITIONAL EVALUATION WITH RENAL ULTRASOUND IS RECOMMENDED..
--- NOTE | 2018-08-25 16:00 | ED ---
SOB HPI - General Source: patient, family, RN notes reviewed Mode of arrival: wheelchair Limitations: physical limitation <Carlos Alberto Connelly - Last Filed: 08/25/18 16:17> <Abdullahi Purcell - Last Filed: 08/25/18 19:41> - General Chief Complaint: Shortness of Breath Stated Complaint: Weakness,SOB,Cough Time Seen by Provider: 08/25/18 13:23 - History of Present Illness Initial Comments: This an 87-year-old male presents emergency Department with family for concerns of cough congestion weakness. Patient has had some symptoms since Tuesday has steady decline. Patient reports cough which is productive at times no leg swelling. No history of COPD, asthma. Patient denies any history of CHF. Patient denies any nausea vomiting. Patient denies any leg swelling. Patient states that he has a known thoracic aortic aneurysm though he states that he's had repair in his abdominal aneurysm and he nearly so they just have been watching his aneurysm at this time. Denies any complaints of back pain. Patient denies any focal weakness. (Carlos Alberto Connelly) - Related Data Home Medications Medication Instructions Recorded Confirmed Levothyroxine Sodium [Synthroid] 50 mcg PO HS 11/08/13 08/25/18 Meloxicam 15 mg PO DAILY 11/08/13 08/25/18 Simvastatin [Zocor] 20 mg PO HS 11/08/13 08/25/18 Insulin Glargine [Lantus] 15 unit SQ QAM 08/25/18 08/25/18 Isosorbide Mononitrate ER [Imdur] 30 mg PO DAILY 08/25/18 08/25/18 Omeprazole [PriLOSEC] 40 mg PO DAILY 08/25/18 08/25/18 Pioglitazone [Actos] 30 mg PO DAILY 08/25/18 08/25/18 amLODIPine [Norvasc] 5 mg PO HS 08/25/18 08/25/18 amLODIPine [Norvasc] 10 mg PO DAILY 08/25/18 08/25/18 metFORMIN HCL [Glucophage] 1,000 mg PO BID 08/25/18 08/25/18 Previous Rx's Medication Instructions Recorded Hydrochlorothiazide [Hydrodiuril] 25 mg PO DAILY tab 03/10/18 Lisinopril [Zestril] 20 mg PO BID tab 03/10/18 Metoprolol Tartrate [Lopressor] 25 mg PO BID tab 03/10/18 hydrALAZINE HCL [Apresoline] 75 mg PO BID tab 03/10/18 Allergies Allergy/AdvReac Type Severity Reaction Status Date / Time lorazepam [From Ativan] AdvReac Hallucinati Verified 08/25/18 13:32 ons Review of Systems ROS Other: All systems not noted in ROS Statement are negative. <Carlos Alberto Connelly - Last Filed: 08/25/18 16:17> ROS Other: All systems not noted in ROS Statement are negative. <Abdullahi Purcell - Last Filed: 08/25/18 19:41> ROS Statement: Those systems with pertinent positive or pertinent negative responses have been documented in the HPI. Past Medical History Past Medical History: Diabetes Mellitus, Hyperlipidemia, Hypertension, Prostate Disorder, Thyroid Disorder Additional Past Medical History / Comment(s): Aortic aneurysm, arthritis, hematemesis, hypothyroid (goiter), enlarged prostate, current prostate cancer ( Dr. Roly ROWELL), retinopathy right eye (Dr. Varela/Jose), eye injection 3x right eye. History of Any Multi-Drug Resistant Organisms: None Reported Additional Past Surgical History / Comment(s): Left knee aspiration d/t swelling , AAA repair, prostate surgery. Past Anesthesia/Blood Transfusion Reactions: No Reported Reaction Past Psychological History: No Psychological Hx Reported Smoking Status: Former smoker Past Alcohol Use History: Daily Past Drug Use History: None Reported - Past Family History Father Family Medical History: No Reported History <Carlos Alberto Connelly - Last Filed: 08/25/18 16:17> General Exam Limitations: physical limitation General appearance: alert, in no apparent distress Head exam: Present: atraumatic, normocephalic, normal inspection Eye exam: Present: normal appearance, PERRL, EOMI. Absent: scleral icterus, conjunctival injection, periorbital swelling ENT exam: Present: normal exam, normal oropharynx, mucous membranes moist Neck exam: Present: normal inspection, full ROM. Absent: tenderness, meningismus, lymphadenopathy Respiratory exam: Absent: normal lung sounds bilaterally, respiratory distress, rales, rhonchi, stridor Cardiovascular Exam: Present: regular rate, normal rhythm, normal heart sounds. Absent: systolic murmur, diastolic murmur, rubs, gallop, clicks GI/Abdominal exam: Present: soft, normal bowel sounds. Absent: distended, tenderness, guarding, rebound, rigid Neurological exam: Present: alert, oriented X3, CN II-XII intact Skin exam: Present: warm, dry, intact, normal color. Absent: rash <Carlos Alberto Connelly - Last Filed: 08/25/18 16:17> Vital Signs 08/25/18 08/25/18 08/25/18 13:04 13:35 13:54 Temperature 98.7 F Pulse Rate 64 66 64 Respiratory 20 24 Rate Blood Pressure 150/70 137/78 O2 Sat by Pulse 92 L 85 L Oximetry 08/25/18 08/25/18 08/25/18 14:04 14:30 15:30 Temperature Pulse Rate 63 66 75 Respiratory 24 24 Rate Blood Pressure 132/78 152/75 O2 Sat by Pulse 94 L 94 L Oximetry 08/25/18 08/25/18 08/25/18 16:30 17:00 17:59 Temperature 97.9 F 98.1 F Pulse Rate 79 76 77 Respiratory 22 24 20 Rate Blood Pressure 142/72 150/76 144/67 O2 Sat by Pulse 93 L 94 L 94 L Oximetry Medical Decision Making - Lab Data Result diagrams: 08/25/18 13:35 08/25/18 13:35 <Carlos Alberto Connelly - Last Filed: 08/25/18 16:17> - Lab Data Result diagrams: 08/25/18 13:35 08/25/18 13:35 <Abdullahi Purcell - Last Filed: 08/25/18 19:41> - Medical Decision Making 87-year-old male present for shortness breath, weakness. Patient had complete workup including labs, EKG, CT chest shows growing thoracic aneurysm. Patient has been hypoxic in the emergency department will be admitted for early pneumonia, hypoxic (Carlos Alberto Connelly) Dr. Dai did not want to admit the patient because of concerns of the thoracic descending aneurysm. Family was very upset with Dr. Dai and complained of his bedside manner. Patient's family requested another doctor. I spoke with the sound physicians accepted the admission. I also spoke with Dr. Zavala he agreed that admitting the patient here was perfectly fine because no one would do any kind of surgery on an 87-year-old male with a thoracic gas rhythm that was asymptomatic when he was having respiratory issues. (Abdullahi Purcell) - Lab Data Lab Results 08/25/18 08/25/18 08/25/18 Range/Units 13:35 13:35 13:35 WBC 4.6 (3.8-10.6) k/uL RBC 4.00 L (4.30-5.90) m/uL Hgb 11.7 L (13.0-17.5) gm/dL Hct 35.5 L (39.0-53.0) % MCV 88.8 (80.0-100.0) fL MCH 29.2 (25.0-35.0) pg MCHC 32.9 (31.0-37.0) g/dL RDW 14.8 (11.5-15.5) % Plt Count 170 (150-450) k/uL Neutrophils % 74 % Lymphocytes % 11 % Monocytes % 13 % Eosinophils % 1 % Basophils % 0 % Neutrophils # 3.4 (1.3-7.7) k/uL Lymphocytes # 0.5 L (1.0-4.8) k/uL Monocytes # 0.6 (0-1.0) k/uL Eosinophils # 0.1 (0-0.7) k/uL Basophils # 0.0 (0-0.2) k/uL PT (9.0-12.0) sec INR (<1.2) APTT (22.0-30.0) sec Sodium 134 L (137-145) mmol/L Potassium 4.4 (3.5-5.1) mmol/L Chloride 97 L (98-107) mmol/L Carbon Dioxide 26 (22-30) mmol/L Anion Gap 11 mmol/L BUN 22 H (9-20) mg/dL Creatinine 0.78 (0.66-1.25) mg/dL Est GFR (CKD-EPI)AfAm >90 (>60 ml/min/1.73 sqM) Est GFR (CKD-EPI)NonAf 81 (>60 ml/min/1.73 sqM) Glucose 164 H (74-99) mg/dL Calcium 10.2 (8.4-10.2) mg/dL Magnesium 1.5 L (1.6-2.3) mg/dL Total Bilirubin 1.1 (0.2-1.3) mg/dL AST 20 (17-59) U/L ALT 26 (21-72) U/L Alkaline Phosphatase 29 L (38-126) U/L Total Creatine Kinase 125 (55-170) U/L CK-MB (CK-2) 1.4 (0.0-2.4) ng/mL CK-MB (CK-2) Rel Index 1.1 Troponin I <0.012 (0.000-0.034) ng/mL NT-Pro-B Natriuret Pep pg/mL Total Protein 6.9 (6.3-8.2) g/dL Albumin 4.0 (3.5-5.0) g/dL Influenza Type A RNA (Not Detectd) Influenza Type B (PCR) (Not Detectd) 08/25/18 08/25/18 08/25/18 Range/Units 13:35 13:35 15:45 WBC (3.8-10.6) k/uL RBC (4.30-5.90) m/uL Hgb (13.0-17.5) gm/dL Hct (39.0-53.0) % MCV (80.0-100.0) fL MCH (25.0-35.0) pg MCHC (31.0-37.0) g/dL RDW (11.5-15.5) % Plt Count (150-450) k/uL Neutrophils % % Lymphocytes % % Monocytes % % Eosinophils % % Basophils % % Neutrophils # (1.3-7.7) k/uL Lymphocytes # (1.0-4.8) k/uL Monocytes # (0-1.0) k/uL Eosinophils # (0-0.7) k/uL Basophils # (0-0.2) k/uL PT 10.2 (9.0-12.0) sec INR 0.9 (<1.2) APTT 23.2 (22.0-30.0) sec Sodium (137-145) mmol/L Potassium (3.5-5.1) mmol/L Chloride (98-107) mmol/L Carbon Dioxide (22-30) mmol/L Anion Gap mmol/L BUN (9-20) mg/dL Creatinine (0.66-1.25) mg/dL Est GFR (CKD-EPI)AfAm (>60 ml/min/1.73 sqM) Est GFR (CKD-EPI)NonAf (>60 ml/min/1.73 sqM) Glucose (74-99) mg/dL Calcium (8.4-10.2) mg/dL Magnesium (1.6-2.3) mg/dL Total Bilirubin (0.2-1.3) mg/dL AST (17-59) U/L ALT (21-72) U/L Alkaline Phosphatase (38-126) U/L Total Creatine Kinase (55-170) U/L CK-MB (CK-2) (0.0-2.4) ng/mL CK-MB (CK-2) Rel Index Troponin I (0.000-0.034) ng/mL NT-Pro-B Natriuret Pep 894 pg/mL Total Protein (6.3-8.2) g/dL Albumin (3.5-5.0) g/dL Influenza Type A RNA Not Detected (Not Detectd) Influenza Type B (PCR) Not Detected (Not Detectd) - EKG Data EKG Comments: EKG performed at 13:27 sinus rhythm with first-degree block, left axis deviation , rate of 64. 352, 98 QT/QTC 406/418 (Carlos Alberto Connelly) Disposition <Carlos Alberto Connelly - Last Filed: 08/25/18 16:17> Time of Disposition: 19:41 <Abdullahi Purcell - Last Filed: 08/25/18 19:41> Clinical Impression: Pneumonia, Dehydration, Hypoxia, Weakness Disposition: ADMITTED IP TO THIS HOSP Condition: Fair
[2018-08-25] MEDS ORDERED: IPRATROPIUM-ALBUTEROL 3 ML NEB INHALATION PRN (16:19)
[2018-08-25] MEDS ORDERED: PNEUMONIA PROTOCOL UTILIZED 1 EACH MISC PO PRN (16:19)
[2018-08-25] MEDS ORDERED: AZITHROMYCIN 500 MG in SODIUM CHLORIDE 0.9% 250 ML IVPB STA (16:19)
[2018-08-25] MEDS ORDERED: MAGNESIUM OXIDE 400 MG TAB PO STA (16:20)
[2018-08-25 19:42] VITALS: BMI 27.8
[2018-08-25 20:17] LABS: Glucose,Whole Blood 122 mg/dL (75-99)
[2018-08-25] MEDS ORDERED: LEVOTHYROXINE 50 MCG TAB PO SCH (21:00)
--- NOTE | 2018-08-25 21:08 | P.HPIM ---
History of Present Illness H&P Date: 08/25/18 Patient is an 87-year-old male with a PMH of significant smoking (60+ pack years - quit 5 years ago), hypertension, diabetes, hyperlipidemia, AAA status post repair in 2003, diagnosed with thoracic aortic aneurysm at the same time ( monitored from [id number] with no change, and subsequently stopped monitoring), presented to the ED for shortness of breath and cough for the past 4 days. The patient notes that he was in his usual state of health until 4-5 days ago when he began feeling short of breath with accompanied cough productive of yellow phlegm. He endorsed not feeling like himself and being lethargic. The patient notes that he has never had such symptoms before and was never previously diagnosed with COPD nor was he ever on inhalers or nebulizers. The patient denied chest pain, nausea, vomiting, diarrhea, lower extremity edema, lower extremity pain, recent travel, or sick contacts. In the emergency room, the patient underwent a comprehensive workup, with troponin < 0.012, BNP 894, WBC 4.6, BUN 22, creatinine 0.78, EKG showing sinus rhythm with first-degree heart block, left axis deviation, incomplete right bundle branch block, chest x-ray showing no focal consolidation distress and pneumonia however suspected increase in size of thoracic aortic aneurysm. Subsequent thoracic and abdominal aortic CTA revealed the descending thoracic aorta increase in size from 5.1 cm in 2013 to 6.4 cm. Review of Systems Pertinent positives and negatives as discussed in HPI, a complete review of systems was performed and all other systems are negative. Past Medical History Past Medical History: Diabetes Mellitus, Hyperlipidemia, Hypertension, Prostate Disorder, Thyroid Disorder Additional Past Medical History / Comment(s): Aortic aneurysm, arthritis, hematemesis, hypothyroid (goiter), enlarged prostate, current prostate cancer ( Dr. Roly ROWELL), retinopathy right eye (Dr. Varela/Jose), eye injection 3x right eye. History of Any Multi-Drug Resistant Organisms: None Reported Additional Past Surgical History / Comment(s): Left knee aspiration d/t swelling , AAA repair, prostate surgery. Past Anesthesia/Blood Transfusion Reactions: No Reported Reaction Past Psychological History: No Psychological Hx Reported Additional Psychological History / Comment(s): No history, but [id number] states since he became a he has shown signs of depression and drinks now. Smoking Status: Former smoker Past Alcohol Use History: Daily Additional Past Alcohol Use History / Comment(s): States he smokes a cigar rarely. States he drinks "a couple of bottles and a couple fifths a week". Past Drug Use History: None Reported - Past Family History Father Family Medical History: No Reported History Medications and Allergies Home Medications Medication Instructions Recorded Confirmed Type Levothyroxine Sodium [Synthroid] 50 mcg PO HS 11/08/13 08/25/18 History Meloxicam 15 mg PO DAILY 11/08/13 08/25/18 History Simvastatin [Zocor] 20 mg PO HS 11/08/13 08/25/18 History Hydrochlorothiazide [Hydrodiuril] 25 mg PO DAILY tab 03/10/18 08/25/18 Rx Lisinopril [Zestril] 20 mg PO BID tab 03/10/18 08/25/18 Rx Metoprolol Tartrate [Lopressor] 25 mg PO BID tab 03/10/18 08/25/18 Rx hydrALAZINE HCL [Apresoline] 75 mg PO BID tab 03/10/18 08/25/18 Rx Insulin Glargine [Lantus] 15 unit SQ QAM 08/25/18 08/25/18 History Isosorbide Mononitrate ER [Imdur] 30 mg PO DAILY 08/25/18 08/25/18 History Omeprazole [PriLOSEC] 40 mg PO DAILY 08/25/18 08/25/18 History Pioglitazone [Actos] 30 mg PO DAILY 08/25/18 08/25/18 History amLODIPine [Norvasc] 5 mg PO HS 08/25/18 08/25/18 History amLODIPine [Norvasc] 10 mg PO DAILY 08/25/18 08/25/18 History metFORMIN HCL [Glucophage] 1,000 mg PO BID 08/25/18 08/25/18 History Allergies Allergy/AdvReac Type Severity Reaction Status Date / Time lorazepam [From Ativan] AdvReac Hallucinati Verified 08/25/18 13:32 ons Physical Exam Vitals: Vital Signs Temp Pulse Resp BP BP Pulse Ox 08/25/18 19:00 98.1 F 68 18 168/86 94 L 08/25/18 18:00 98.4 F 18 182/83 08/25/18 17:59 98.1 F 77 20 144/67 94 L 08/25/18 17:00 97.9 F 76 24 150/76 94 L 08/25/18 16:30 79 22 142/72 93 L 08/25/18 15:30 75 24 152/75 94 L 08/25/18 14:30 66 24 132/78 94 L 08/25/18 14:04 63 08/25/18 13:54 64 08/25/18 13:35 66 24 137/78 85 L 08/25/18 13:04 98.7 F 64 20 150/70 92 L Intake and Output 08/25/18 08/25/18 08/25/18 06:59 14:59 22:59 Other: Weight 92.986 kg General: non toxic, no distress, appears at stated age, normal weight Derm: Numerous nevi on back, skin warm, dry Head: atraumatic, normocephalic, symmetric Eyes: EOMI, no lid lag, anicteric sclera, pupils equal round reactive to light ENT: Nose and ears atraumatic, no thrush, no pharyngeal erythema Neck: No thyromegaly, no cervical lymphadenopathy, trachea midline, supple Mouth: no lip lesion, mucus membranes moist Cardiovascular: S1S2 reg, no murmur, positive posterior tibial pulse bilateral, no edema, capillary refill less than 2 seconds Lungs: Decreased air entry bilaterally with scattered rhonchi, no rales appreciated, no accessory muscle use Abdominal: soft, nontender to palpation, no guarding, no appreciable organomegaly, normal bowel sounds Ext: no gross muscle atrophy, muscle strength 5 out of 5 in all 4 extremities grossly, no contractures, Neuro: CN II-XI grossly intact, light touch intact all 4 extremities, finger to nose within normal limits, Psych: Alert, oriented, appropriate affect Results CBC & Chem 7: 08/25/18 13:35 08/25/18 13:35 Labs: Abnormal Lab Results - Last 24 Hours (Table) 08/25/18 08/25/18 08/25/18 Range/Units 13:35 13:35 20:15 RBC 4.00 L (4.30-5.90) m/uL Hgb 11.7 L (13.0-17.5) gm/dL Hct 35.5 L (39.0-53.0) % Lymphocytes # 0.5 L (1.0-4.8) k/uL Sodium 134 L (137-145) mmol/L Chloride 97 L (98-107) mmol/L BUN 22 H (9-20) mg/dL Glucose 164 H (74-99) mg/dL POC Glucose (mg/dL) 122 H (75-99) mg/dL Magnesium 1.5 L (1.6-2.3) mg/dL Alkaline Phosphatase 29 L (38-126) U/L Thrombosis Risk Factor Assmnt - Choose All That Apply Any of the Below Risk Factors Present?: No Other Risk Factors: No Other congenital or acquired thrombophilia - If yes, enter type in comment: No Thrombosis Risk Factor Assessment Level: Very Low Risk Assessment and Plan Plan: Shortness of breath and productive cough, likely undiagnosed COPD brought on by episode of viral bronchitis -Check procalcitonin levels -Continue with DuoNeb's -Continue with azithromycin and ceftriaxone for now -Pulmonary consult -Supplemental oxygen Descending thoracic aortic aneurysm, 6.4 cm -Vascular surgery consulted, Dr. Zavala aware of the patient -Patient will be seen in the a.m. Renal cysts -Obtain kidney ultrasound Diabetes mellitus -Patient's family at bedside endorsed that the patient has previously had episodes of hypoglycemia while inpatient -The patient's PMD has him on permissive hyperglycemia with goal fingersticks > 200 -Ppatient takes 30 units of Lantus before breakfast along with Actos -We will continue with Lantus at 15 units daily in a.m. with lispro sliding scale -Blood glucose monitoring Hypertension, patient is on multiple antihypertensives -Resume home meds: Lisinopril, Imdur, amlodipine. We will resume the remaining meds as warranted Hyperlipidemia -Resume home meds Zocor Hypothyroidism -Resume home dose of Synthroid DVT//GI prophylaxis -IPCD's -Protonix The patient is admitted with an anticipated greater than 2 midnight stay for evaluation of shortness of breath. CODE STATUS: No code Discussed with: Patient Anticipated discharge date: 08/27/[address]: Home A total of 55 minutes was spent on the care of this complex patient more than 50 % of the time was spent in counseling and care coordination.
[2018-08-25] MEDS: ATORVASTATIN 10 MG TAB PO SCH (21:57)
[2018-08-25] MEDS: LISINOPRIL 20 MG TAB PO SCH (21:57)
--- NOTE | 2018-08-25 22:12 | US ---
EXAMINATION TYPE: US kidneys/renal and bladder DATE OF EXAM: 08/25/2018 COMPARISON: CT today CLINICAL HISTORY: Multiple renal cysts. EXAM MEASUREMENTS: Right Kidney: 11.5 x 6.5 x 5.3 cm Left Kidney: 12.4 x 5.7 x 6.5 cm Post Void Residual Volume: not measured, yet volume still present after patient void 10 minutes prio r to US Right Kidney: upper lateral and exophytic cortical cyst = 1.8 x 1.5 x 1.9cm; lower lateral cortical cyst seen = 1.0 x 0.8 x 1.0cm Left Kidney: upper cortical cyst seen = 1.3 x 1.0 x 1.2cm; mid cortical cyst = 1.6 x 1.3 x 0.9cm Bladder: partially distended, thus, limited for assessment Bilateral Jets seen: no There is no evidence for hydronephrosis at this point in time. No nephrolithiasis is seen. IMPRESSION: No evidence of renal stone or obstruction. Bilateral renal cortical cysts. No evidence of solid renal mass.
[2018-08-26 01:47] LABS: Glucose,Whole Blood 115 mg/dL (75-99)
[2018-08-26] MEDS: LEVOTHYROXINE 50 MCG TAB PO SCH (05:47)
[2018-08-26 06:53] LABS: Glucose,Whole Blood 125 mg/dL (75-99)
[2018-08-26] MEDS ORDERED: ALBUTEROL NEBULIZED 2.5 MG/3 ML INHALATION PRN (07:35)
[2018-08-26 07:49] LABS: HCT 33.9 % (39.0-53.0); HGB 11.3 gm/dL (13.0-17.5); MCH 29.5 pg (25.0-35.0); MCHC 33.2 g/dL (31.0-37.0); MCV 88.7 fL (80.0-100.0); Mean Platelet Volume 7.7; Platelet Count 130 k/uL (150-450); RBC 3.82 m/uL (4.30-5.90); RDW 14.5 % (11.5-15.5); WBC 4.7 k/uL (3.8-10.6)
[2018-08-26] MEDS: ISOSORBIDE MONONITRATE ER 30 MG TAB.ER.24H PO SCH (07:52)
[2018-08-26] MEDS: PANTOPRAZOLE 40 MG TABLET PO SCH (07:52)
[2018-08-26] MEDS: INSULIN ASPART (NovoLOG) 100 UNIT/ML VIAL SQ SCH ×3 (07:53→17:57)
[2018-08-26] MEDS: amLODIPine 10 MG TAB PO SCH (07:53)
[2018-08-26] MEDS: LISINOPRIL 20 MG TAB PO SCH ×2 (07:53→21:19)
[2018-08-26] MEDS: METOPROLOL TARTRATE 25 MG TAB PO SCH ×2 (07:55→21:19)
[2018-08-26 07:58] LABS: Anion Gap 12 mmol/L; Blood Urea Nitrogen 12 mg/dL (9-20); Calcium 9.5 mg/dL (8.4-10.2); Carbon Dioxide 28 mmol/L (22-30); Chloride 95 mmol/L (98-107); Glucose 124 mg/dL (74-99); Magnesium 1.6 mg/dL (1.6-2.3); Potassium 3.7 mmol/L (3.5-5.1); Sodium 135 mmol/L (137-145)
[2018-08-26] MEDS: IPRATROPIUM-ALBUTEROL 3 ML NEB INHALATION SCH ×4 (08:48→19:52)
[2018-08-26] MEDS: INSULIN DETEMIR (LEVEMIR) 100 UNIT/ML SYR SQ SCH (08:52)
--- NOTE | 2018-08-26 09:02 | XR ---
EXAMINATION TYPE: XR chest 2V DATE OF EXAM: 08/26/2018 COMPARISON: 08/25/18 HISTORY: Shortness of breath TECHNIQUE: Frontal and lateral views of the chest are obtained. FINDINGS: Scattered senescent parenchymal changes noted. Hyperinflation compatible with COPD. No evidence for infiltrate. No evidence for atelectasis. Heart size is stable. Mediastinal structures are stable and grossly unremarkable. No evidence for hilar prominence. Degenerative changes dorsal spine. IMPRESSION: 1. No evidence for acute pulmonary disease.
[2018-08-26 09:14] LABS: HCT 36.6 % (39.0-53.0); HGB 12.1 gm/dL (13.0-17.5); MCH 29.7 pg (25.0-35.0); MCHC 33.1 g/dL (31.0-37.0); MCV 89.8 fL (80.0-100.0); Mean Platelet Volume 7.8; Platelet Count 153 k/uL (150-450); RBC 4.08 m/uL (4.30-5.90); RDW 14.6 % (11.5-15.5); WBC 4.5 k/uL (3.8-10.6)
[2018-08-26 09:25] LABS: Anion Gap 10 mmol/L; Blood Urea Nitrogen 11 mg/dL (9-20); Calcium 9.7 mg/dL (8.4-10.2); Carbon Dioxide 27 mmol/L (22-30); Chloride 95 mmol/L (98-107); Glucose 256 mg/dL (74-99); Potassium 3.6 mmol/L (3.5-5.1); Sodium 132 mmol/L (137-145)
--- NOTE | 2018-08-26 10:22 | P.GSCN ---
<David Morgan - Last Filed: 08/26/18 09:40> History of Present Illness Consult date: 08/26/18 Reason for Consult: Evaluate thoracic aortic aneurysm Requesting physician: Evelyne Gooden History of present illness: This is an 87-year-old gentleman who is followed by Dr. Len Johnson on an outpatient basis. His past medical history significant for hypertension, hyperlipidemia, prostate cancer, diabetes mellitus, hypothyroid, history of tobacco abuse quit 5 years ago, history of abdominal aortic aneurysm repair with stent placement in 2003, history of thoracic aortic aneurysm which has been monitored until 2012 as the patient stopped following up with the thoracic aneurysm. This past week the patient has had complaints of productive coughing with yellow sputum, shortness of breath, weakness, episodes of chest pain, pain between his shoulder blades, unsteady gait, confusion and hearing loss. He also reports that he has been having episodes of feeling cold. The patient denies any complaints of nausea, vomiting, diarrhea, fevers, or edema. The patient presented to the emergency department here at [facility] with the above-mentioned symptoms. In the emergency department a 12- lead EKG was completed which showed normal sinus rhythm with first-degree AV block with a heart rate of 64 BPM. His initial laboratory results showed a WBC 4.6, H&H Hgb 11.7, BUN 22, creatinine 0.78, glucose 164, magnesium 1.5, troponins less than 0.012 and his influenza type A and type B were negative. Subsequently a chest x-ray was completed which showed a descending thoracic aorta which appeared to be aneurysmal and there is also suspicion for ascending thoracic aortic aneurysm. For further evaluation the patient underwent a CTA of his chest which demonstrated his entire descending thoracic aorta to be aneurysmal which has increased in size from his scan in 2013. Due to the patient's presenting symptoms and CTA of his chest results a consult was placed to Dr. David Cary for further evaluation and recommendations. Review of Systems A 14 point review of systems was completed was negative except as mentioned in the HPI. Past Medical History Past Medical History: Diabetes Mellitus, GERD/Reflux, Hyperlipidemia, Hypertension, Prostate Disorder, Thyroid Disorder, Vascular Disorder Additional Past Medical History / Comment(s): Aortic aneurysm, arthritis, hypothyroid (goiter), enlarged prostate, current prostate cancer (Dr. Dunham OP) , retinopathy right eye (Dr. Varela/Jose), eye injection 3x right eye. History of Any Multi-Drug Resistant Organisms: None Reported Additional Past Surgical History / Comment(s): Left knee aspiration d/t swelling , AAA repair, prostate surgery. Past Anesthesia/Blood Transfusion Reactions: No Reported Reaction Past Psychological History: Depression Additional Psychological History / Comment(s): No history, but [id number] states since he became a he has shown signs of depression with EtOH abuse. Smoking Status: Former smoker Past Alcohol Use History: Occasional Past Drug Use History: None Reported - Past Family History Father Family Medical History: Congestive Heart Failure (CHF) Mother Family Medical History: Cancer (Breast cancer) Medications and Allergies Home Medications Medication Instructions Recorded Confirmed Type Levothyroxine Sodium [Synthroid] 50 mcg PO HS 11/08/13 08/25/18 History Meloxicam 15 mg PO DAILY 11/08/13 08/25/18 History Simvastatin [Zocor] 20 mg PO HS 11/08/13 08/25/18 History Hydrochlorothiazide [Hydrodiuril] 25 mg PO DAILY tab 03/10/18 08/25/18 Rx Lisinopril [Zestril] 20 mg PO BID tab 03/10/18 08/25/18 Rx Metoprolol Tartrate [Lopressor] 25 mg PO BID tab 03/10/18 08/25/18 Rx hydrALAZINE HCL [Apresoline] 75 mg PO BID tab 03/10/18 08/25/18 Rx Insulin Glargine [Lantus] 30 unit SQ QAM 08/25/18 08/28/18 History Isosorbide Mononitrate ER [Imdur] 30 mg PO DAILY 08/25/18 08/25/18 History Omeprazole [PriLOSEC] 40 mg PO DAILY 08/25/18 08/25/18 History Pioglitazone [Actos] 30 mg PO DAILY 08/25/18 08/25/18 History amLODIPine [Norvasc] 5 mg PO HS 08/25/18 08/25/18 History amLODIPine [Norvasc] 10 mg PO DAILY 08/25/18 08/25/18 History metFORMIN HCL [Glucophage] 1,000 mg PO BID 08/25/18 08/25/18 History Albuterol Inhaler [Ventolin Hfa 2 puff INHALATION RT-Q6H PRN #1 08/28/18 Rx Inhaler] inhaler predniSONE 40 mg PO DAILY #6 tab 08/28/18 Rx Allergies Allergy/AdvReac Type Severity Reaction Status Date / Time lorazepam [From Ativan] AdvReac Hallucinati Verified 08/25/18 13:32 ons Surgical - Exam Vital Signs Temp Pulse Resp BP Pulse Ox 98.7 F 64 20 150/70 92 L 08/25/18 13:04 08/25/18 13:04 08/25/18 13:04 08/25/18 13:04 08/25/18 13:04 - General well developed, well nourished, no distress, no pain - Eyes PERRL, normal ocular movement - ENT normal pinna, normal nares, normal mucosa, decreased hearing - Neck Neck is supple, no lymphadenopathy. no masses, no bruits, trachea midline, no venous distension - Respiratory Lung sounds with diminished breath sounds throughout, few scattered rhonchi. Respirations are symmetrical and nonlabored. Oxygen saturation are 92% on room air. - Cardiovascular Regular rhythm and rate. S1 and S2 present, negative for S3, gallop or murmur. No edema present. - Abdomen Abdomen is soft, nontender and nondistended. Active bowel sounds to all 4 abdominal quadrants. No guarding or rigidity. No organomegaly. - Genitourinary Deferred - Rectum Deferred - Integumentary Numerous nevi to his back, no clubbing or cyanosis. no rash, no growths, no abnormal pigmentation - Neurologic normal coordination, normal sensation - Musculoskeletal normal gait, normal posture - Psychiatric oriented to time, oriented to person, oriented to place, speech is normal, memory intact Results - Labs 08/26/18 08:50 08/26/18 08:50 Abnormal Lab Results - Last 24 Hours (Table) 08/25/18 08/25/18 08/25/18 Range/Units 13:35 13:35 20:15 RBC 4.00 L (4.30-5.90) m/uL Hgb 11.7 L (13.0-17.5) gm/dL Hct 35.5 L (39.0-53.0) % Plt Count (150-450) k/uL Lymphocytes # 0.5 L (1.0-4.8) k/uL Sodium 134 L (137-145) mmol/L Chloride 97 L (98-107) mmol/L BUN 22 H (9-20) mg/dL Creatinine (0.66-1.25) mg/dL Glucose 164 H (74-99) mg/dL POC Glucose (mg/dL) 122 H (75-99) mg/dL Hemoglobin A1c (4.0-6.0) % Magnesium 1.5 L (1.6-2.3) mg/dL Alkaline Phosphatase 29 L (38-126) U/L 08/25/18 08/26/18 08/26/18 Range/Units 21:42 01:45 06:50 RBC 3.82 L (4.30-5.90) m/uL Hgb 11.3 L (13.0-17.5) gm/dL Hct 33.9 L (39.0-53.0) % Plt Count 130 L (150-450) k/uL Lymphocytes # (1.0-4.8) k/uL Sodium (137-145) mmol/L Chloride (98-107) mmol/L BUN (9-20) mg/dL Creatinine (0.66-1.25) mg/dL Glucose (74-99) mg/dL POC Glucose (mg/dL) 115 H (75-99) mg/dL Hemoglobin A1c 8.0 H (4.0-6.0) % Magnesium (1.6-2.3) mg/dL Alkaline Phosphatase (38-126) U/L 08/26/18 08/26/18 08/26/18 Range/Units 06:52 07:42 08:50 RBC 4.08 L (4.30-5.90) m/uL Hgb 12.1 L (13.0-17.5) gm/dL Hct 36.6 L (39.0-53.0) % Plt Count (150-450) k/uL Lymphocytes # (1.0-4.8) k/uL Sodium 135 L (137-145) mmol/L Chloride 95 L (98-107) mmol/L BUN (9-20) mg/dL Creatinine 0.62 L (0.66-1.25) mg/dL Glucose 124 H (74-99) mg/dL POC Glucose (mg/dL) 125 H (75-99) mg/dL Hemoglobin A1c (4.0-6.0) % Magnesium (1.6-2.3) mg/dL Alkaline Phosphatase (38-126) U/L 08/26/18 Range/Units 08:50 RBC (4.30-5.90) m/uL Hgb (13.0-17.5) gm/dL Hct (39.0-53.0) % Plt Count (150-450) k/uL Lymphocytes # (1.0-4.8) k/uL Sodium 132 L (137-145) mmol/L Chloride 95 L (98-107) mmol/L BUN (9-20) mg/dL Creatinine (0.66-1.25) mg/dL Glucose 256 H (74-99) mg/dL POC Glucose (mg/dL) (75-99) mg/dL Hemoglobin A1c (4.0-6.0) % Magnesium (1.6-2.3) mg/dL Alkaline Phosphatase (38-126) U/L Diabetes panel 08/25/18 08/25/18 08/26/18 Range/Units 13:35 21:42 07:42 Sodium 134 L 135 L (137-145) mmol/L Potassium 4.4 3.7 (3.5-5.1) mmol/L Chloride 97 L 95 L (98-107) mmol/L Carbon Dioxide 26 28 (22-30) mmol/L BUN 22 H 12 (9-20) mg/dL Creatinine 0.78 0.62 L (0.66-1.25) mg/dL Glucose 164 H 124 H (74-99) mg/dL Hemoglobin A1c 8.0 H (4.0-6.0) % Calcium 10.2 9.5 (8.4-10.2) mg/dL AST 20 (17-59) U/L ALT 26 (21-72) U/L Alkaline Phosphatase 29 L (38-126) U/L Total Protein 6.9 (6.3-8.2) g/dL Albumin 4.0 (3.5-5.0) g/dL 08/26/18 Range/Units 08:50 Sodium 132 L (137-145) mmol/L Potassium 3.6 (3.5-5.1) mmol/L Chloride 95 L (98-107) mmol/L Carbon Dioxide 27 (22-30) mmol/L BUN 11 (9-20) mg/dL Creatinine 0.67 (0.66-1.25) mg/dL Glucose 256 H (74-99) mg/dL Hemoglobin A1c (4.0-6.0) % Calcium 9.7 (8.4-10.2) mg/dL AST (17-59) U/L ALT (21-72) U/L Alkaline Phosphatase (38-126) U/L Total Protein (6.3-8.2) g/dL Albumin (3.5-5.0) g/dL Calcium panel 08/25/18 08/26/18 08/26/18 Range/Units 13:35 07:42 08:50 Calcium 10.2 9.5 9.7 (8.4-10.2) mg/dL Albumin 4.0 (3.5-5.0) g/dL Pituitary panel 08/25/18 08/26/18 08/26/18 Range/Units 13:35 07:42 08:50 Sodium 134 L 135 L 132 L (137-145) mmol/L Potassium 4.4 3.7 3.6 (3.5-5.1) mmol/L Chloride 97 L 95 L 95 L (98-107) mmol/L Carbon Dioxide 26 28 27 (22-30) mmol/L BUN 22 H 12 11 (9-20) mg/dL Creatinine 0.78 0.62 L 0.67 (0.66-1.25) mg/dL Glucose 164 H 124 H 256 H (74-99) mg/dL Calcium 10.2 9.5 9.7 (8.4-10.2) mg/dL Adrenal panel 08/25/18 08/26/18 08/26/18 Range/Units 13:35 07:42 08:50 Sodium 134 L 135 L 132 L (137-145) mmol/L Potassium 4.4 3.7 3.6 (3.5-5.1) mmol/L Chloride 97 L 95 L 95 L (98-107) mmol/L Carbon Dioxide 26 28 27 (22-30) mmol/L BUN 22 H 12 11 (9-20) mg/dL Creatinine 0.78 0.62 L 0.67 (0.66-1.25) mg/dL Glucose 164 H 124 H 256 H (74-99) mg/dL Calcium 10.2 9.5 9.7 (8.4-10.2) mg/dL Total Bilirubin 1.1 (0.2-1.3) mg/dL AST 20 (17-59) U/L ALT 26 (21-72) U/L Alkaline Phosphatase 29 L (38-126) U/L Total Protein 6.9 (6.3-8.2) g/dL Albumin 4.0 (3.5-5.0) g/dL - Imaging Chest x-ray: report reviewed, image reviewed CT scan - chest: report reviewed, image reviewed EKG: image reviewed Assessment and Plan (1) Thoracic aortic aneurysm Status: Chronic Code(s): I71.2 - THORACIC AORTIC ANEURYSM, WITHOUT RUPTURE SNOMED Code(s): 665802448 (2) Hypertension Status: Chronic Code(s): I10 - ESSENTIAL (PRIMARY) HYPERTENSION SNOMED Code( s): 37778091 (3) Shortness of breath Status: Acute Code(s): R06.02 - SHORTNESS OF BREATH SNOMED Code(s): 089222743 (4) Hyperlipidemia Status: Chronic Code(s): E78.5 - HYPERLIPIDEMIA, UNSPECIFIED SNOMED Code(s) : 21104874 (5) Hypothyroid Status: Acute Code(s): E03.9 - HYPOTHYROIDISM, UNSPECIFIED SNOMED Code(s): 62454002 (6) DVT prophylaxis Status: Acute Code(s): FGE2403 - SNOMED Code(s): 603899569 (7) Diabetes mellitus Status: Chronic Code(s): E11.9 - TYPE 2 DIABETES MELLITUS WITHOUT COMPLICATIONS SNOMED Code(s): 03419187 (8) History of abdominal aortic aneurysm (AAA) repair Status: Resolved Code(s): Z98.890 - OTHER SPECIFIED POSTPROCEDURAL STATES SNOMED Code(s): 081669549 Plan: The patient was seen and examined. His chart and diagnostics were reviewed. His case was discussed with Dr. Ibrahim from cardiothoracic surgery. Recommendations are for strict blood pressure control, no surgical intervention is required at this time. Once the patient has been stabilized medically he will be followed on an outpatient basis. Medical management per primary care service. Pulmonary management per Dr. Gaspar. Encourage continued smoking cessation. DVT and GI prophylaxis. We will continue to follow the patient while he is here in the hospital. Thank you Dr. Baker for this consult and we look forward to working with you in the care of your patient. Time with Patient: Greater than 30 <David Cary - Last Filed: 08/30/18 08:52> Surgical - Exam Vital Signs Temp Pulse Resp BP Pulse Ox 98.7 F 64 20 150/70 92 L 08/25/18 13:04 08/25/18 13:04 08/25/18 13:04 08/25/18 13:04 08/25/18 13:04 Results - Labs 08/26/18 08:50 08/27/18 06:58 Microbiology - Last 24 Hours (Table) 08/25/18 13:35 Blood Culture - Preliminary Blood No Growth after 96 hours Assessment and Plan Assessment: Chart and films were reviewed. The patient has an enlarging descending thoracic aortic aneurysm. He also has uncontrolled hypertension. He is 87 years of age. Stent grafting of this thoracic aortic aneurysm is technically feasible. Risks would entail 3-5% chance of spinal CORD dysfunction. A long conversation was had with the patient and his son and [id number]. We discussed the risks versus benefits of addressing the thoracic aortic aneurysm and the importance of blood pressure control. They wish to think about this for some period of time. Hopefully they will follow up with me on an outpatient basis.
[2018-08-26 12:03] LABS: Glucose,Whole Blood 229 mg/dL (75-99)
--- NOTE | 2018-08-26 13:57 | P.CNPUL ---
History of Present Illness Consult date: 08/26/18 Reason for consult: COPD Chief complaint: shortness of breath and cough. History of present illness: this is an 87-year-old white male 60 -pack-year smoking history, quit 5 years ago. History of hypertension, abdominal aortic aneurysm and previous repair in 2003. History of descending thoracic aortic aneurysm,patient was brought into the ER with 4 days history of shortness of breath, cough, the cough is described as productive with yellow phlegm. Has been feeling generally weak, denies any chest pain, no nausea no vomiting, no palpitations. Patient was never diagnosed as having COPD, and he was never on any inhalers in the past. Workup in the ER included a chest x-ray which came back normal. Cardiac panel was basically unremarkable. CT of the aorta showed larger thoracic aortic aneurysm compared to 2013, presently measures 6.4 cm. It was 5.1 in 2013. Considering his symptoms of cough wheezing shortness of breath, patient was admitted with the impression of acute COPD exacerbation, tracheobronchitis, there was no evidence of pneumonia on the chest x-ray, and this consult was initiated. Patient at present complains of generalized weakness, fatigue, malaise, and seems to require some assistance with ambulation. Denies any fever , no chills, no chest pain, no hemoptysis, no diaphoresis. No nausea no vomiting no abdominal pain. No melena no hematemesis no dysuria and no frequency no urgency. He just feels generally weak.CBC on admission was noted to be normal, electrolytes were noted to be normal. Renal profile is normal.liver enzymes were normal. Influenza screen was negative for type A and. type B. Review of Systems 14 point review of systems were obtained, please refer to pertinent positives in HPI, otherwise remaining systems are negative. Past Medical History Past Medical History: Diabetes Mellitus, GERD/Reflux, Hyperlipidemia, Hypertension, Prostate Disorder, Thyroid Disorder, Vascular Disorder Additional Past Medical History / Comment(s): Aortic aneurysm, arthritis, hypothyroid (goiter), enlarged prostate, current prostate cancer (Dr. Roly ROWELL) , retinopathy right eye (Dr. Varela/Jose), eye injection 3x right eye. History of Any Multi-Drug Resistant Organisms: None Reported Additional Past Surgical History / Comment(s): Left knee aspiration d/t swelling , AAA repair, prostate surgery. Past Anesthesia/Blood Transfusion Reactions: No Reported Reaction Past Psychological History: Depression Additional Psychological History / Comment(s): No history, but [id number] states since he became a he has shown signs of depression with EtOH abuse. Smoking Status: Former smoker Past Alcohol Use History: Occasional Past Drug Use History: None Reported - Past Family History Mother Family Medical History: Cancer (Breast cancer) Father Family Medical History: Congestive Heart Failure (CHF) Medications and Allergies Home Medications Medication Instructions Recorded Confirmed Type Levothyroxine Sodium [Synthroid] 50 mcg PO HS 11/08/13 08/25/18 History Meloxicam 15 mg PO DAILY 11/08/13 08/25/18 History Simvastatin [Zocor] 20 mg PO HS 11/08/13 08/25/18 History Hydrochlorothiazide [Hydrodiuril] 25 mg PO DAILY tab 03/10/18 08/25/18 Rx Lisinopril [Zestril] 20 mg PO BID tab 03/10/18 08/25/18 Rx Metoprolol Tartrate [Lopressor] 25 mg PO BID tab 03/10/18 08/25/18 Rx hydrALAZINE HCL [Apresoline] 75 mg PO BID tab 03/10/18 08/25/18 Rx Insulin Glargine [Lantus] 15 unit SQ QAM 08/25/18 08/25/18 History Isosorbide Mononitrate ER [Imdur] 30 mg PO DAILY 08/25/18 08/25/18 History Omeprazole [PriLOSEC] 40 mg PO DAILY 08/25/18 08/25/18 History Pioglitazone [Actos] 30 mg PO DAILY 08/25/18 08/25/18 History amLODIPine [Norvasc] 5 mg PO HS 08/25/18 08/25/18 History amLODIPine [Norvasc] 10 mg PO DAILY 08/25/18 08/25/18 History metFORMIN HCL [Glucophage] 1,000 mg PO BID 08/25/18 08/25/18 History Allergies Allergy/AdvReac Type Severity Reaction Status Date / Time lorazepam [From Ativan] AdvReac Hallucinati Verified 08/25/18 13:32 ons Physical Exam Vitals: Vital Signs Temp Pulse Pulse Resp BP BP Pulse Ox 08/26/18 12:01 69 08/26/18 11:49 68 08/26/18 09:00 66 08/26/18 08:48 62 08/26/18 04:32 98.6 F 71 18 168/77 92 L 08/26/18 00:00 18 08/25/18 19:00 98.1 F 68 18 168/86 94 L 08/25/18 18:00 98.4 F 18 182/83 08/25/18 17:59 98.1 F 77 20 144/67 94 L 08/25/18 17:00 97.9 F 76 24 150/76 94 L 08/25/18 16:30 79 22 142/72 93 L 08/25/18 15:30 75 24 152/75 94 L 08/25/18 14:30 66 24 132/78 94 L 08/25/18 14:04 63 08/25/18 13:54 64 Intake and Output 08/25/18 08/26/18 08/26/18 22:59 06:59 14:59 Intake Total 200 Balance 200 Intake: Oral 200 Other: # Voids 1 5 Physical Exam: Revealed 87-year-old white male in no distress. Presently on room air Head: Atraumatic, normocephalic. HEENT:[Neck is supple.] [No neck masses.] [No thyromegaly.] [No JVD.] Chest: [diminished breath sound bilaterally, rhonchi and wheezes noted on forced expiratory maneuver bilaterally. Cardiac Exam: [Normal S1 and S2, no S3 gallop, no murmur.] Abdomen: [Soft, nontender, no megaly, no rebound, no guarding, normal bowel sounds.] Extremities: [No clubbing, no edema, no cyanosis.] Neurological Exam: [No focal neurologic deficit.]except noted to be generally weak.very hard of hearing Psychiatric:normal mood, affect and mental status examination. Skin: No rashes Results - Laboratory Findings CBC and BMP: 08/26/18 08:50 08/26/18 08:50 PT/INR, D-dimer PT 10.2 sec (9.0-12.0) 08/25/18 13:35 INR 0.9 (<1.2) 08/25/18 13:35 Abnormal lab findings: Abnormal Labs 08/25/18 08/25/18 08/25/18 13:35 13:35 20:15 RBC 4.00 L Hgb 11.7 L Hct 35.5 L Plt Count Lymphocytes # 0.5 L Sodium 134 L Chloride 97 L BUN 22 H Creatinine Glucose 164 H POC Glucose (mg/dL) 122 H Hemoglobin A1c Magnesium 1.5 L Alkaline Phosphatase 29 L Procalcitonin 08/25/18 08/25/18 08/26/18 21:42 21:42 01:45 RBC Hgb Hct Plt Count Lymphocytes # Sodium Chloride BUN Creatinine Glucose POC Glucose (mg/dL) 115 H Hemoglobin A1c 8.0 H Magnesium Alkaline Phosphatase Procalcitonin 0.10 H 08/26/18 08/26/18 08/26/18 06:50 06:52 07:42 RBC 3.82 L Hgb 11.3 L Hct 33.9 L Plt Count 130 L Lymphocytes # Sodium 135 L Chloride 95 L BUN Creatinine 0.62 L Glucose 124 H POC Glucose (mg/dL) 125 H Hemoglobin A1c Magnesium Alkaline Phosphatase Procalcitonin 08/26/18 08/26/18 08/26/18 08:50 08:50 12:01 RBC 4.08 L Hgb 12.1 L Hct 36.6 L Plt Count Lymphocytes # Sodium 132 L Chloride 95 L BUN Creatinine Glucose 256 H POC Glucose (mg/dL) 229 H Hemoglobin A1c Magnesium Alkaline Phosphatase Procalcitonin - Diagnostic Findings Chest x-ray: image reviewed CT scan - chest: image reviewed (as noted in HPI.) Assessment and Plan Assessment: impression: 1 acute exacerbation of COPD 2 acute purulent tracheobronchitis 3 enlarging descending thoracic aortic aneurysm 4 benign essential hypertension 5 history of hypothyroidism 6 dyslipidemia. Recommendation: I fully agree with the present treatment plan including antibiotics, bronchodilators, steroids, close monitoring of the blood pressure, make sure it is controlled because of his ascending thoracic aortic aneurysm. Otherwise not much to be added at this point, discussed his condition with him and his family/daughter at bedside. We'll continue to follow. Time with Patient: Greater than 30
[2018-08-26] MEDS: CARBAMIDE PEROXIDE 6.5% DROPS 15 ML BTL RIGHT EAR SCH ×2 (14:08→21:20)
--- NOTE | 2018-08-26 14:23 | P.PN ---
Subjective Progress Note Date: 08/26/18 Principal diagnosis: weakness and shortness of breath Patient is an 87-year-old male with a past medical history of prior tobacco abuse, hypertension, diabetes, dyslipidemia, aortic aneurysm, and descending thoracic aortic aneurysm who presented to the ER with complaints of shortness of breath, cough, and generalized weakness. In the ER he underwent an extensive evaluation. His initial chest x-ray showed no acute process. Troponin was negative, BNP negative, white blood cell count was normal, Bun 22, creatinine 0.78. EKG showed sinus rhythm with first-degree AV block. There was a CTA done of the thoracic and abdominal aorta which showed increasing descending thoracic aortic aneurysm from 5.1 to 6.4. He was started on antibiotics for possible early pneumonia. He was subsequently admitted to the general medical floor. Pro-calcitonin was drawn which came back at 0.11 which is consistent with bacterial infection. Therefore his Rocephin was stopped. Zithromax was maintained as it decreases inflammation. Patient was started on prednisone and bronchodilators for presumed acute bronchitis with possible mild COPD. He continued to struggle with weakness. Per the daughter he recently had an increase in his hearing loss. Patient seen and examined at bedside. He has a hard time hearing and daughter assists with history gathering. Patient has felt short of breath for the last several days. He thinks it is mildly better today. He is still feeling weak. He denies any chest pain. He denies any nausea or vomiting. He actually lost his hearing over the last 5 days. He is also felt weak and been sleeping more often. He has no formal diagnosis of COPD but was a heavy smoker up until approximately 5 years ago. His last CT for his aortic aneurysm was done in 2016. They would not want him to go to a halfway for rehab and patient would not be amenable to this. He also would not be willing to wear oxygen at home. He would be amenable to home health and they would like Rosemarie as the physical therapist. I discussed with the daughters that should he be able to come off oxygen by tomorrow and feel that his weakness is improved we will be able to send him home with home health set up. Objective - Vital Signs Vital signs: Vital Signs Temp 98.6 F 08/26/18 04:32 Pulse 69 08/26/18 12:01 Resp 18 08/26/18 04:32 BP 168/77 02/16/19 04:32 Pulse Ox 92 L 08/26/18 04:32 Intake & Output 08/25/18 08/26/18 08/26/18 18:59 06:59 18:59 Intake Total 200 Balance 200 Weight 92.986 kg Intake: Oral 200 Other: # Voids 5 - Exam General: non toxic, no distress, appears at stated age Derm: warm, dry Head: atraumatic, normocephalic, symmetric, [place] Eyes: EOMI, no lid lag, anicteric sclera Mouth: no lip lesion, mucus membranes moist ENT: [place], left ear with mild wax able to see TM no fluid/erythema/loss of cone of light, Right TM obscured by wax. Cardiovascular: S1S2 reg, no murmur, positive posterior tibial pulse bilateral, Lungs: rhonchi b/l , no accessory muscle use Abdominal: soft, nontender to palpation, no guarding, no appreciable organomegaly Ext: no gross muscle atrophy, no edema, no contractures Neuro: CN II-XI grossly intact, no focal neuro deficits Psych: Alert, oriented, appropriate affect - Labs CBC & Chem 7: 08/26/18 08:50 08/26/18 08:50 Labs: Abnormal Lab Results - Last 24 Hours (Table) 08/25/18 08/25/18 08/25/18 Range/Units 13:35 13:35 20:15 RBC 4.00 L (4.30-5.90) m/uL Hgb 11.7 L (13.0-17.5) gm/dL Hct 35.5 L (39.0-53.0) % Plt Count (150-450) k/uL Lymphocytes # 0.5 L (1.0-4.8) k/uL Sodium 134 L (137-145) mmol/L Chloride 97 L (98-107) mmol/L BUN 22 H (9-20) mg/dL Creatinine (0.66-1.25) mg/dL Glucose 164 H (74-99) mg/dL POC Glucose (mg/dL) 122 H (75-99) mg/dL Hemoglobin A1c (4.0-6.0) % Magnesium 1.5 L (1.6-2.3) mg/dL Alkaline Phosphatase 29 L (38-126) U/L Procalcitonin (0.02-0.09) ng/mL 08/25/18 08/25/18 08/26/18 Range/Units 21:42 21:42 01:45 RBC (4.30-5.90) m/uL Hgb (13.0-17.5) gm/dL Hct (39.0-53.0) % Plt Count (150-450) k/uL Lymphocytes # (1.0-4.8) k/uL Sodium (137-145) mmol/L Chloride (98-107) mmol/L BUN (9-20) mg/dL Creatinine (0.66-1.25) mg/dL Glucose (74-99) mg/dL POC Glucose (mg/dL) 115 H (75-99) mg/dL Hemoglobin A1c 8.0 H (4.0-6.0) % Magnesium (1.6-2.3) mg/dL Alkaline Phosphatase (38-126) U/L Procalcitonin 0.10 H (0.02-0.09) ng/mL 08/26/18 08/26/18 08/26/18 Range/Units 06:50 06:52 07:42 RBC 3.82 L (4.30-5.90) m/uL Hgb 11.3 L (13.0-17.5) gm/dL Hct 33.9 L (39.0-53.0) % Plt Count 130 L (150-450) k/uL Lymphocytes # (1.0-4.8) k/uL Sodium 135 L (137-145) mmol/L Chloride 95 L (98-107) mmol/L BUN (9-20) mg/dL Creatinine 0.62 L (0.66-1.25) mg/dL Glucose 124 H (74-99) mg/dL POC Glucose (mg/dL) 125 H (75-99) mg/dL Hemoglobin A1c (4.0-6.0) % Magnesium (1.6-2.3) mg/dL Alkaline Phosphatase (38-126) U/L Procalcitonin (0.02-0.09) ng/mL 08/26/18 08/26/18 08/26/18 Range/Units 08:50 08:50 12:01 RBC 4.08 L (4.30-5.90) m/uL Hgb 12.1 L (13.0-17.5) gm/dL Hct 36.6 L (39.0-53.0) % Plt Count (150-450) k/uL Lymphocytes # (1.0-4.8) k/uL Sodium 132 L (137-145) mmol/L Chloride 95 L (98-107) mmol/L BUN (9-20) mg/dL Creatinine (0.66-1.25) mg/dL Glucose 256 H (74-99) mg/dL POC Glucose (mg/dL) 229 H (75-99) mg/dL Hemoglobin A1c (4.0-6.0) % Magnesium (1.6-2.3) mg/dL Alkaline Phosphatase (38-126) U/L Procalcitonin (0.02-0.09) ng/mL Assessment and Plan Assessment: Acute viral bronchitis with likely undiagnosed COPD exacerbation -Pro calcitonin level was less than 2 and not consistent with bacterial infection -Continue Zithromax to help with inflammation, add Solu-Medrol, scheduled bronchodilators added along with when necessary -Pulmonary recommendations appreciated -Wean oxygen as able Acute hypoxic respiratory failure secondary to above -O2 sat of less than 90 on room air in the ER -Wean O2 as able Diabetes mellitus type 2, insulin requiring -Patient's goal blood sugars from his PCP are fingerstick of 200-300. He has had previous hypoglycemic episodes while inpatient. -Hold actos -Received Lantus 15 units (on 30 at home) along with sliding scale. We'll continue to monitor his blood sugars every before meals and at bedtime -Follow blood glucose monitoring closely and avoid hypoglycemia, maintain patient's home blood sugar goals of 200-300 Descending thoracic aortic aneurysm -Cardiovascular thoracic recommendations appreciated. On review of CTA of the chest from 2017 the dementions of the aneurysm appears stable. 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 Start debrox solution -Recommended outpatient ENT evaluation. Cortical renal cysts -Does not need to be followed further Accelerated hypertension without urgency -Resume patient's amlodipine, metoprolol, hydralazine, and lisinopril -Follow blood pressures Dyslipidemia -Statin therapy DVT prophylaxis: SCDs Discussed with: Patient, nursing, daughter Anticipated discharge: [address]: home A total of 35 minutes was spent on the care of this complex patient more than 50 % of the time was spent in counseling and care coordination.
[2018-08-26] MEDS: MAGNESIUM SULFATE-D5W PMX 1 GM in DEXTROSE/WATER 1 100ML.BAG IVPB SCH ×2 (15:00→16:24)
[2018-08-26] MEDS: methylPREDNISolone SOD SUCCI 125 MG/2 ML VIAL IV SCH (16:26)
[2018-08-26] MEDS: AZITHROMYCIN 500 MG TAB PO SCH (16:28)
[2018-08-26 17:06] LABS: Glucose,Whole Blood 238 mg/dL (75-99)
[2018-08-26 19:57] LABS: Glucose,Whole Blood 295 mg/dL (75-99)
[2018-08-26] MEDS: amLODIPine 5 MG TAB PO SCH (21:19)
[2018-08-26] MEDS: hydrALAZINE HCL 25 MG TAB PO SCH (21:19)
[2018-08-26] MEDS: ATORVASTATIN 10 MG TAB PO SCH (21:19)
[2018-08-26 23:13] LABS: Vitamin D 25 Hydroxy 26.9 ng/mL (30.0-100.0)
[2018-08-27] MEDS: methylPREDNISolone SOD SUCCI 125 MG/2 ML VIAL IV SCH ×2 (01:18→08:04)
[2018-08-27] MEDS: LEVOTHYROXINE 50 MCG TAB PO SCH (05:43)
[2018-08-27 07:03] LABS: Glucose,Whole Blood 282 mg/dL (75-99)
[2018-08-27] MEDS: IPRATROPIUM-ALBUTEROL 3 ML NEB INHALATION SCH ×4 (07:17→19:21)
[2018-08-27 07:58] LABS: Anion Gap 9 mmol/L; Blood Urea Nitrogen 18 mg/dL (9-20); Carbon Dioxide 30 mmol/L (22-30); Chloride 96 mmol/L (98-107); Glucose 299 mg/dL (74-99); Potassium 4.5 mmol/L (3.5-5.1); Sodium 135 mmol/L (137-145)
[2018-08-27] MEDS: INSULIN ASPART (NovoLOG) 100 UNIT/ML VIAL SQ SCH ×3 (08:04→18:10)
[2018-08-27] MEDS: hydrALAZINE HCL 25 MG TAB PO SCH ×2 (08:05→20:15)
[2018-08-27] MEDS: LISINOPRIL 20 MG TAB PO SCH ×2 (08:06→20:22)
[2018-08-27] MEDS: amLODIPine 10 MG TAB PO SCH (08:06)
[2018-08-27] MEDS: PANTOPRAZOLE 40 MG TABLET PO SCH (08:06)
[2018-08-27] MEDS: CARBAMIDE PEROXIDE 6.5% DROPS 15 ML BTL RIGHT EAR SCH ×2 (08:06→20:34)
[2018-08-27] MEDS: METOPROLOL TARTRATE 25 MG TAB PO SCH ×2 (08:06→20:32)
[2018-08-27] MEDS: ISOSORBIDE MONONITRATE ER 30 MG TAB.ER.24H PO SCH (08:17)
[2018-08-27] MEDS: INSULIN DETEMIR (LEVEMIR) 100 UNIT/ML SYR SQ SCH (08:17)
[2018-08-27 11:27] LABS: Glucose,Whole Blood 332 mg/dL (75-99)
[2018-08-27] MEDS ORDERED: INSULIN DETEMIR (LEVEMIR) 100 UNIT/ML SYR SQ ONE (12:00)
--- NOTE | 2018-08-27 12:15 | P.PN ---
Subjective Progress Note Date: 08/27/18 Principal diagnosis: weakness and shortness of breath Patient is an 87-year-old male with a past medical history of prior tobacco abuse, hypertension, diabetes, dyslipidemia, aortic aneurysm, and descending thoracic aortic aneurysm who presented to the ER with complaints of shortness of breath, cough, and generalized weakness. In the ER he underwent an extensive evaluation. His initial chest x-ray showed no acute process. Troponin was negative, BNP negative, white blood cell count was normal, Bun 22, creatinine 0.78. EKG showed sinus rhythm with first-degree AV block. There was a CTA done of the thoracic and abdominal aorta which showed increasing descending thoracic aortic aneurysm from 5.1 to 6.4. He was started on antibiotics for possible early pneumonia. He was subsequently admitted to the general medical floor. Pro-calcitonin was drawn which came back at 0.11 which is consistent with bacterial infection. Therefore his Rocephin was stopped. Zithromax was maintained as it decreases inflammation. Patient was started on prednisone and bronchodilators for presumed acute bronchitis with possible mild COPD. He continued to struggle with weakness. Per the daughter he recently had an increase in his hearing loss and was found to have a ceruman impaction right ear. Patient seen and examined at bedside. Doing much better today. Able to walk in the halls, wheezing and dyspnea better, still having a cough, hearing is much improved today. Objective - Vital Signs Vital signs: Vital Signs Temp 97.8 F 08/27/18 07:00 Pulse 65 08/27/18 07:00 Resp 18 08/27/18 07:00 BP 154/67 08/27/18 07:00 Pulse Ox 98 08/27/18 07:00 Intake & Output 08/26/18 08/27/18 08/27/18 18:59 06:59 18:59 Intake Total 600 240 Balance 600 240 Intake: Oral 600 240 Other: # Voids 3 2 - Exam General: non toxic, no distress, appears at stated age Derm: warm, dry Head: atraumatic, normocephalic, symmetric, less [place] Eyes: EOMI, no lid lag, anicteric sclera Mouth: no lip lesion, mucus membranes moist ENT: [place], left ear with mild wax able to see TM no fluid/erythema/loss of cone of light, Right TM obscured by wax. Cardiovascular: S1S2 reg, no murmur, positive posterior tibial pulse bilateral, Lungs: decreased bs b/l bases , no accessory muscle use Abdominal: soft, nontender to palpation, no guarding, no appreciable organomegaly Ext: no gross muscle atrophy, no edema, no contractures Neuro: CN II-XI grossly intact, no focal neuro deficits Psych: Alert, oriented, appropriate affect - Labs CBC & Chem 7: 08/26/18 08:50 08/27/18 06:58 Labs: Abnormal Lab Results - Last 24 Hours (Table) 08/26/18 08/26/18 08/26/18 Range/Units 08:50 17:05 19:55 Sodium (137-145) mmol/L Chloride (98-107) mmol/L Glucose (74-99) mg/dL POC Glucose (mg/dL) 238 H 295 H (75-99) mg/dL Vitamin D 25-Hydroxy 26.9 L (30.0-100.0) ng/mL 08/27/18 08/27/18 08/27/18 Range/Units 06:58 07:02 11:26 Sodium 135 L (137-145) mmol/L Chloride 96 L (98-107) mmol/L Glucose 299 H (74-99) mg/dL POC Glucose (mg/dL) 282 H 332 H (75-99) mg/dL Vitamin D 25-Hydroxy (30.0-100.0) ng/mL Microbiology - Last 24 Hours (Table) 08/26/18 07:20 Gram Stain - Preliminary Sputum 08/25/18 13:35 Blood Culture - Preliminary Blood No Growth after 24 hours Assessment and Plan Assessment: Acute viral bronchitis with likely undiagnosed COPD exacerbation -Procalcitonin level was less than 2 and not consistent with bacterial infection -Continue Zithromax to help with inflammation, Solu-Medrol to prednisone, scheduled bronchodilators added along with when necessary -Pulmonary recommendations appreciated -Wean oxygen as able Acute hypoxic respiratory failure secondary to above -O2 sat of less than 90 on room air in the ER -Wean O2 as able Diabetes mellitus type 2, insulin requiring with hyperglycemia -Patient's goal blood sugars from his PCP are fingerstick of 200-300. He has had previous hypoglycemic episodes while inpatient. -Hold actos -resume home long acting insulin dose of 30 along with sliding scale. We'll continue to monitor his blood sugars every before meals and at bedtime -Follow blood glucose monitoring closely and avoid hypoglycemia, maintain patient's home blood sugar goals of 200-300 Descending thoracic aortic aneurysm -Cardiovascular thoracic recommendations appreciated. On review of CTA of the chest from 2017 the dementions of the aneurysm appears stable. It has increased from the last CT of the chest done in 2016 which showed 5.1 x 5.4 cm aneurysm Right ceruman impaction - debrox solution -Recommended outpatient ENT evaluation. Cortical renal cysts -Does not need to be followed further Accelerated hypertension without urgency -Resume patient's amlodipine, metoprolol, hydralazine, and lisinopril -Follow blood pressures Dyslipidemia -Statin therapy Plan: home in AM after seen by Cardiothorasic surgery DVT prophylaxis: SCDs Discussed with: Patient, nursing, daughter Anticipated discharge: [address]: home A total of 35 minutes was spent on the care of this complex patient more than 50 % of the time was spent in counseling and care coordination.
--- NOTE | 2018-08-27 13:09 | P.PN ---
Subjective Progress Note Date: 08/27/18 Principal diagnosis: acute exacerbation of COPD and acute tracheobronchitis this is an 87-year-old white male 60 -pack-year smoking history, quit 5 years ago. History of hypertension, abdominal aortic aneurysm and previous repair in 2003. History of descending thoracic aortic aneurysm,patient was brought into the ER with 4 days history of shortness of breath, cough, the cough is described as productive with yellow phlegm. Has been feeling generally weak, denies any chest pain, no nausea no vomiting, no palpitations. Patient was never diagnosed as having COPD, and he was never on any inhalers in the past. Workup in the ER included a chest x-ray which came back normal. Cardiac panel was basically unremarkable. CT of the aorta showed larger thoracic aortic aneurysm compared to 2013, presently measures 6.4 cm. It was 5.1 in 2013. Considering his symptoms of cough wheezing shortness of breath, patient was admitted with the impression of acute COPD exacerbation, tracheobronchitis, there was no evidence of pneumonia on the chest x-ray, and this consult was initiated. Patient at present complains of generalized weakness, fatigue, malaise, and seems to require some assistance with ambulation. Denies any fever , no chills, no chest pain, no hemoptysis, no diaphoresis. No nausea no vomiting no abdominal pain. No melena no hematemesis no dysuria and no frequency no urgency. He just feels generally weak.CBC on admission was noted to be normal, electrolytes were noted to be normal. Renal profile is normal.liver enzymes were normal. Influenza screen was negative for type A and. type B. Patient was reexamined today on 08/27/2018, he was walking down the hallway ambulating well according to his daughter, and she was walking down with him. Feeling better, however he had one episode of coughing spell earlier today, and lasted for few minutes. Less wheezing, less shortness of breath compared to yesterday. Obviously his responding to the present treatment including bronchodilators and antibiotics.basic metabolic profile today was relatively normal. Renal profile is normal.sputum Gram stain was noted, culture is pending. Objective - Vital Signs Vital signs: Vital Signs Temp 97.8 F 08/27/18 07:00 Pulse 60 08/27/18 12:51 Resp 18 08/27/18 07:00 BP 154/67 08/27/18 07:00 Pulse Ox 98 08/27/18 07:00 Intake & Output 08/26/18 08/27/18 08/27/18 18:59 06:59 18:59 Intake Total 600 240 Balance 600 240 Intake: Oral 600 240 Other: # Voids 3 2 - Exam Physical Exam: Revealed 87-year-old white male in no distress. in bed, asymptomatic. Head: Atraumatic, normocephalic. HEENT:[Neck is supple.] [No neck masses.] [No thyromegaly.] [No JVD.] Chest: [diminished breath sound bilaterally, minimal wheezing noted today, improved compared to yesterday. Cardiac Exam: [Normal S1 and S2, no S3 gallop, no murmur.] Abdomen: [Soft, nontender, no megaly, no rebound, no guarding, normal bowel sounds.] Extremities: [No clubbing, no edema, no cyanosis.] Neurological Exam: [No focal neurologic deficit.hard of hearing. And generally weak Psychiatric:normal mood, affect and mental status examination. Skin: No rashes - Labs CBC & Chem 7: 08/26/18 08:50 08/27/18 06:58 Labs: Abnormal Lab Results - Last 24 Hours (Table) 08/26/18 08/26/18 08/26/18 Range/Units 08:50 17:05 19:55 Sodium (137-145) mmol/L Chloride (98-107) mmol/L Glucose (74-99) mg/dL POC Glucose (mg/dL) 238 H 295 H (75-99) mg/dL Vitamin D 25-Hydroxy 26.9 L (30.0-100.0) ng/mL 08/27/18 08/27/18 08/27/18 Range/Units 06:58 07:02 11:26 Sodium 135 L (137-145) mmol/L Chloride 96 L (98-107) mmol/L Glucose 299 H (74-99) mg/dL POC Glucose (mg/dL) 282 H 332 H (75-99) mg/dL Vitamin D 25-Hydroxy (30.0-100.0) ng/mL Microbiology - Last 24 Hours (Table) 08/26/18 07:20 Gram Stain - Preliminary Sputum 08/25/18 13:35 Blood Culture - Preliminary Blood No Growth after 24 hours Assessment and Plan Assessment: impression: 1 acute exacerbation of COPD, possible reactive bronchospasm from acute purulent tracheobronchitis. However this is to be determined on outpatient basis whether the patient has any significant COPD based on pulmonary function tests which will be done on outpatient basis. 2 acute purulent tracheobronchitis 3 enlarging descending thoracic aortic aneurysm 4 benign essential hypertension 5 history of hypothyroidism 6 dyslipidemia. Recommendation: continue present treatment plan including antibiotics, bronchodilators, steroids, cut down the dose of Solu-Medrol, consider discharge planning in the next 24 hours.continue cardiac meds continue however if patient continues to have chronic cough, may have to consider switching lisinopril to losartan. Apparently he has been on lisinopril before he came in.discussed his condition with his son and daughter at bedside, and recommended a definite outpatient follow-up to determine his overall pulmonary status on outpatient basis and I will likely recommend PFT in the office. Time with Patient: Less than 30
[2018-08-27] MEDS ORDERED: methylPREDNISolone SOD SUCCI 40 MG/ML 1 ML VIAL IV SCH (16:00)
[2018-08-27 17:14] LABS: Glucose,Whole Blood 416 mg/dL (75-99)
[2018-08-27] MEDS ORDERED: INSULIN ASPART (NovoLOG) 100 UNIT/ML VIAL SQ ONE ×3 (18:05→21:41)
[2018-08-27] MEDS: AZITHROMYCIN 500 MG TAB PO SCH (18:08)
[2018-08-27 20:03] LABS: Glucose,Whole Blood 475 mg/dL (75-99)
[2018-08-27] MEDS: amLODIPine 5 MG TAB PO SCH (20:32)
[2018-08-27] MEDS: ATORVASTATIN 10 MG TAB PO SCH (20:32)
[2018-08-27 21:35] LABS: Glucose,Whole Blood 433 mg/dL (75-99)
[2018-08-27 23:04] LABS: Glucose,Whole Blood 370 mg/dL (75-99)
[2018-08-28 01:15] LABS: Glucose,Whole Blood 303 mg/dL (75-99)
[2018-08-28 04:40] LABS: Glucose,Whole Blood 198 mg/dL (75-99)
[2018-08-28] MEDS: LEVOTHYROXINE 50 MCG TAB PO SCH (05:40)
[2018-08-28 06:53] LABS: Glucose,Whole Blood 190 mg/dL (75-99)
[2018-08-28] MEDS ORDERED: INSULIN DETEMIR (LEVEMIR) 100 UNIT/ML SYR SQ SCH (07:30)
[2018-08-28] MEDS: PANTOPRAZOLE 40 MG TABLET PO SCH (08:13)
[2018-08-28] MEDS: METOPROLOL TARTRATE 25 MG TAB PO SCH (08:14)
[2018-08-28] MEDS: hydrALAZINE HCL 25 MG TAB PO SCH (08:14)
[2018-08-28] MEDS: ISOSORBIDE MONONITRATE ER 30 MG TAB.ER.24H PO SCH (08:15)
[2018-08-28] MEDS: LISINOPRIL 20 MG TAB PO SCH (08:15)
[2018-08-28] MEDS: amLODIPine 10 MG TAB PO SCH (08:15)
[2018-08-28] MEDS: INSULIN ASPART (NovoLOG) 100 UNIT/ML VIAL SQ SCH ×2 (08:17→12:38)
[2018-08-28] MEDS: CARBAMIDE PEROXIDE 6.5% DROPS 15 ML BTL RIGHT EAR SCH (08:19)
[2018-08-28] MEDS: IPRATROPIUM-ALBUTEROL 3 ML NEB INHALATION SCH ×3 (08:39→15:26)
[2018-08-28] MEDS ORDERED: predniSONE 10 MG TAB PO SCH (09:00)
[2018-08-28] MEDS ORDERED: predniSONE 20 MG TAB PO SCH (09:00)
[2018-08-28 11:09] LABS: Glucose,Whole Blood 265 mg/dL (75-99)
[2018-08-28 11:34] VITALS: BP 143/73; PULSE 55; RESP 20; TEMP 97.9
--- NOTE | 2018-08-28 14:04 | P.PN ---
Subjective Progress Note Date: 08/28/18 Principal diagnosis: Thoracic aortic aneurysm, being monitored since 2003. Previous medical history of hypertension, hyperlipidemia, abdominal aortic aneurysm repair with stent placement in 2003, diabetes, hypothyroid, prostate cancer, previous tobacco dependence. The patient is currently sitting up in a chair in no acute distress. Remains very hard of hearing. Son and [id number] at the bedside. The patient denies any chest pain or back pain currently, denies shortness of breath. Has been ambulatory and states he is feeling better than when he came in. No new complaints. Objective - Vital Signs Vital signs: Vital Signs Temp 97.9 F 08/28/18 11:32 Pulse 55 L 08/28/18 11:32 Resp 20 08/28/18 11:32 BP 143/73 08/28/18 11:32 Pulse Ox 93 L 08/28/18 11:32 Intake & Output 08/27/18 08/28/18 08/28/18 18:59 06:59 18:59 Other: Voiding Method Toilet # Voids 2 1 - Constitutional General appearance: Present: cooperative, no acute distress, obese - Respiratory Details: Lungs sounds diminished bilaterally. Respirations even, nonlabored. Currently on room air with oxygen saturation 93%. - Cardiovascular Details: S1, S2 present. Regular rate and rhythm. Palpable peripheral pulses bilaterally. No edema present. No calf pain or tenderness noted. - Gastrointestinal Gastrointestinal Comment(s): Abdomen soft, nontender, nondistended. Active bowel sounds present 4 quadrants. Tolerating diet. - Genitourinary Genitourinary Comment(s): Continues to void clear, yellow urine. - Integumentary Integumentary Comment(s): Skin is warm and dry with evidence of good perfusion. - Neurologic Neurologic: Present: CNII-XII intact - Musculoskeletal Musculoskeletal: Present: gait normal, strength equal bilaterally - Psychiatric Psychiatric: Present: A&O x's 3, appropriate affect, intact judgment & insight - Allied health notes Allied health notes reviewed: nursing - Labs CBC & Chem 7: 08/26/18 08:50 08/27/18 06:58 Labs: Abnormal Lab Results - Last 24 Hours (Table) 08/27/18 08/27/18 08/27/18 Range/Units 17:13 20:01 21:33 POC Glucose (mg/dL) 416 H 475 H 433 H (75-99) mg/dL 08/27/18 08/28/18 08/28/18 Range/Units 23:02 01:13 04:38 POC Glucose (mg/dL) 370 H 303 H 198 H (75-99) mg/dL 08/28/18 08/28/18 Range/Units 06:50 11:00 POC Glucose (mg/dL) 190 H 265 H (75-99) mg/dL Microbiology - Last 24 Hours (Table) 08/26/18 07:20 Gram Stain - Final Sputum Sputum Culture - Final 08/25/18 13:35 Blood Culture - Preliminary Blood No Growth after 48 hours - Imaging and Cardiology Chest x-ray: report reviewed, image reviewed CT scan - chest: report reviewed, image reviewed Assessment and Plan Plan: Assessment: 1. Descending thoracic fusiform aneurysm, present since 2003, recent increase in size 2. History of abdominal aortic aneurysm with stent repair in 2003 3. Hypertension, uncontrolled 4. Hyperlipidemia 5. Diabetes with hemoglobin A1c 8.0% 6. Hypothyroid 7. History of prostate cancer Plan: The patient was seen and examined with Dr. Cary. We discussed with the patient and his son and [id number] risks versus benefits of aortic repair with stent graft. Due to the increase in size and lack of control of his blood pressure the patient is at increased risk of rupture of the aneurysm in the next 2 years, however surgery carries a risk of paralysis due to the location of the aneurysm. In addition, surgery would need to take place in a facility with a hybrid OR such as [facility]. This was discussed in great detail with the patient and his family and all questions were answered. We left the decision for surgery up to the patient. If he decides to go the surgical route he will need cardiac clearance in the form of heart catheterization and carotid Doppler studies as well as pulmonary clearance with pulmonary function tests. The patient was given Dr. Cary's contact information to make an appointment if he decides he would like surgery and has received cardiac and pulmonary clearance. In the meantime, the patient's blood pressure should be aggressively controlled. This too was discussed with the patient and his family. Medical management to continue per primary care service, pulmonology, and cardiology with great emphasis on blood pressure control. We will continue to see patient on an as-needed basis while hospitalized. Time with Patient: Greater than 30
--- NOTE | 2018-08-28 17:41 | P.DS ---
Providers Date of admission: 08/25/18 17:32 Expected date of discharge: 08/28/18 Attending physician: Evelyne Gooden MD Consults: 08/25/18 18:44 Consult Physician Routine Consulting Provider: David Cary Consult Reason/Comments: EVALUATE AAA Do you want consulting provider notified?: Yes 08/25/18 20:58 Consult Physician Urgent Consulting Provider: Cheyanne Gaspar Consult Reason/Comments: COPD w/ pulm htn Do you want consulting provider notified?: Yes Primary care physician: Stated None Hospital Course: Discharge Diagnosis: Acute viral bronchitis with acute exacerbation of COPD Acute hypoxic respiratory failure DM 2, insulin requiring with hyperglycemia Decreased thorasic aortic aneurysm Right cerumen Cortical renal cyst Accelerated HTN without urgency Dyslipidemia Hospital Course: Patient is an 87-year-old male with a past medical history of prior tobacco abuse, hypertension, diabetes, dyslipidemia, aortic aneurysm, and descending thoracic aortic aneurysm who presented to the ER with complaints of shortness of breath, cough, and generalized weakness. In the ER he underwent an extensive evaluation. His initial chest x-ray showed no acute process. Troponin was negative, BNP negative, white blood cell count was normal, Bun 22, creatinine 0.78. EKG showed sinus rhythm with first-degree AV block. There was a CTA done of the thoracic and abdominal aorta which showed increasing descending thoracic aortic aneurysm from 5.1 to 6.4. He was started on antibiotics for possible early pneumonia. He was subsequently admitted to the general medical floor. Pro-calcitonin was drawn which came back at 0.11 which is not consistent with bacterial infection. Therefore his Rocephin was stopped. Zithromax was maintained as it decreases inflammation. Patient was started on prednisone and bronchodilators for presumed acute bronchitis with possible mild COPD. He continued to struggle with weakness. Per the daughter he recently had an increase in his hearing loss and was found to have a ceruman impaction right ear. He is placed on detox drops and his cerumen impaction cleared and his hearing greatly improved. He was transitioned to oral steroids and tolerated this well. He was seen by cardiothoracic surgery who recommended continued outpatient follow-up and for the family to discuss benefits versus risks of endovascular intervention. Patient was able to ambulate in the hallways and was no longer requiring oxygen. He was determined stable for discharge home. He will complete 3 more days of prednisone therapy. He has completed his Zithromax and also be discontinued. He was given a prescription for albuterol inhaler to use as needed. He will also use Claritin for his postnasal drip. If his cough does not clear consider discontinuing lisinopril and starting an ARB. He will set up care with Dr. Jarquin. At this point in time he will not follow with pulmonary and an outpatient basis unless Dr. Jarquin feels she cannot manage his probable COPD. He has not had any pulmonary function tests done in the past and would benefit from a baseline PFT if he smoked for 15+ years and likely has underlying COPD. He was set up with home health care. I have asked him not to drive until seen by Dr. Jarquin to ensure that his hearing clears. He will follow with Dr. Cary in the office. They follow with Dr. ami edward for endocrinology. He will need optimization of his blood pressure regimen to decrease risk of spontaneous rupture of his descending thoracic aortic aneurysm. However I will leave this to the discretion of Dr. Jarquin as he had been seeing a different primary care provider and is currently on a unique BP regiment that will need to be tailored over time. Patient seen and examined at bedside. Breathing is much better, hearing better , no nausea, feeling much less weak. Excited to go home. Vital signs reviewed and stable. General: non toxic, no distress, appears at stated age Derm: warm, dry Head: atraumatic, normocephalic, symmetric, hard of hearing Eyes: EOMI, no lid lag, anicteric sclera Mouth: no lip lesion, mucus membranes moist Cardiovascular: S1S2 reg, no murmur, positive posterior tibial pulse bilateral, Lungs: CTA bilateral, no rhonchi, no rales , no accessory muscle use Abdominal: soft, nontender to palpation, no guarding, no appreciable organomegaly Ext: no gross muscle atrophy, no edema, no contractures Neuro: CN II-XI grossly intact, no focal neuro deficits Psych: Alert, oriented, appropriate affect A total of 35 minutes of time were spent preparing this complex discharge summary . Pertinent Studies: Renal ultrasound-bilateral renal cortical cysts, no solid renal mass CTA of aorta-increasing pulmonary hypertension, increasing descending thoracic aortic aneurysm, no endovascular leak within the abdomen, cholelithiasis Patient Condition at Discharge: Stable Plan - Discharge Summary Discharge Rx Participant: Yes New Discharge Prescriptions: New Albuterol Inhaler [Ventolin Hfa Inhaler] 2 puff INHALATION RT-Q6H PRN #1 inhaler PRN Reason: Shortness Of Breath predniSONE 40 mg PO DAILY #6 tab Continue Meloxicam 15 mg PO DAILY Levothyroxine Sodium [Synthroid] 50 mcg PO HS Simvastatin [Zocor] 20 mg PO HS hydrALAZINE HCL [Apresoline] 75 mg PO BID tab Lisinopril [Zestril] 20 mg PO BID tab Metoprolol Tartrate [Lopressor] 25 mg PO BID tab Pioglitazone [Actos] 30 mg PO DAILY Isosorbide Mononitrate ER [Imdur] 30 mg PO DAILY Omeprazole [PriLOSEC] 40 mg PO DAILY Insulin Glargine [Lantus] 30 unit SQ QAM metFORMIN HCL [Glucophage] 1,000 mg PO BID amLODIPine [Norvasc] 5 mg PO HS amLODIPine [Norvasc] 10 mg PO DAILY No Action Hydrochlorothiazide [Hydrodiuril] 25 mg PO DAILY tab Discharge Medication List Levothyroxine Sodium [Synthroid] 50 mcg PO HS 11/08/13 [History] Meloxicam 15 mg PO DAILY 11/08/13 [History] Simvastatin [Zocor] 20 mg PO HS 11/08/13 [History] Hydrochlorothiazide [Hydrodiuril] 25 mg PO DAILY tab 03/10/18 [Rx] Lisinopril [Zestril] 20 mg PO BID tab 03/10/18 [Rx] Metoprolol Tartrate [Lopressor] 25 mg PO BID tab 03/10/18 [Rx] hydrALAZINE HCL [Apresoline] 75 mg PO BID tab 03/10/18 [Rx] Insulin Glargine [Lantus] 30 unit SQ QAM 08/25/18 [History] Isosorbide Mononitrate ER [Imdur] 30 mg PO DAILY 08/25/18 [History] Omeprazole [PriLOSEC] 40 mg PO DAILY 08/25/18 [History] Pioglitazone [Actos] 30 mg PO DAILY 08/25/18 [History] amLODIPine [Norvasc] 5 mg PO HS 08/25/18 [History] amLODIPine [Norvasc] 10 mg PO DAILY 08/25/18 [History] metFORMIN HCL [Glucophage] 1,000 mg PO BID 08/25/18 [History] Albuterol Inhaler [Ventolin Hfa Inhaler] 2 puff INHALATION RT-Q6H PRN #1 inhaler 08/28/18 [Rx] predniSONE 40 mg PO DAILY #6 tab 08/28/18 [Rx] Follow up Appointment(s)/Referral(s): Caron Jarquin MD [STAFF PHYSICIAN] - 09/13/18 10:00 am David Cary MD [STAFF PHYSICIAN] - 2 Weeks [facility], [NON-STAFF] - Patient Instructions/Handouts: Albuterol (By breathing), Prednisone (By mouth) , Bronchiolitis (DC) Activity/Diet/Wound Care/Special Instructions: Diabetic Diet, consistent carbohydrate. Activity as tolerated Discharge Disposition: HOME SELF-CARE
== END 2018-08-28 15:57 | disposition home or self-care (01) | DRG 190 ==
LOC: EC 12:57 → 3NMEDONC 17:32
PROVIDERS: ADMIT Family Medicine; ATTEND Family Medicine
DX: J44.1 Chronic obstructive pulmonary disease with (acute) exacerbation (principal); J96.01 Acute respiratory failure with hypoxia; J44.0 Chronic obstructive pulmonary disease with (acute) lower respiratory infection; J20.8 Acute bronchitis due to other specified organisms; I44.0 Atrioventricular block, first degree; I45.10 Unspecified right bundle-branch block; I71.2 Thoracic aortic aneurysm, without rupture; K21.9 Gastro-esophageal reflux disease without esophagitis; N28.1 Cyst of kidney, acquired; N40.0 Benign prostatic hyperplasia without lower urinary tract symptoms; I27.20 Pulmonary hypertension, unspecified; I10 Essential (primary) hypertension; H61.21 Impacted cerumen, right ear; E86.0 Dehydration; E03.9 Hypothyroidism, unspecified; E11.319 Type 2 diabetes mellitus with unspecified diabetic retinopathy without macular edema; E11.65 Type 2 diabetes mellitus with hyperglycemia; E78.5 Hyperlipidemia, unspecified; Z79.4 Long term (current) use of insulin; Z79.890 Hormone replacement therapy; Z79.899 Other long term (current) drug therapy; Z80.3 Family history of malignant neoplasm of breast; Z82.49 Family history of ischemic heart disease and other diseases of the circulatory system; C61 Malignant neoplasm of prostate; Z87.891 Personal history of nicotine dependence; F32.9 Major depressive disorder, single episode, unspecified; E04.9 Nontoxic goiter, unspecified; Z66 Do not resuscitate; F10.10 Alcohol abuse, uncomplicated
CPT/HCPCS: 36415; 71046; 71275; 74174; 76770; 80048; 80053; 82306; 82550; 82553; 82607; 83036; 83735; 83880; 84145; 84443; 84484; 85025; 85027; 85610; 85730; 87040; 87070; 87205; 87502; 93005; 94640; 96361; 96365; 96367; 99285

== ENCOUNTER 2019-09-17 14:05 | Emergency (ER) | payer MEDICARE ==
[2019-09-17 14:11] LABS: Glucose,Whole Blood 160 mg/dL (75-99)
[2019-09-17 14:15] VITALS: PULSE 60; RESP 16; TEMP 98.4
[2019-09-17 14:56] LABS: Basophils % (A) 0 %; Eosinophils # (A) 0.1 k/uL (0-0.7); Eosinophils % (A) 4 %; HCT 34.5 % (39.0-53.0); Lymphocytes # (A) 0.5 k/uL (1.0-4.8); Lymphocytes % (A) 15 %; MCH 27.5 pg (25.0-35.0); MCV 86.2 fL (80.0-100.0); Monocytes # (A) 0.3 k/uL (0-1.0); Monocytes % (A) 8 %; Neutrophils # (A) 2.4 k/uL (1.3-7.7); Neutrophils % (A) 71 %; Platelet Count 107 k/uL (150-450); RBC 4.01 m/uL (4.30-5.90); RDW 14.7 % (11.5-15.5); WBC 3.3 k/uL (3.8-10.6)
[2019-09-17 15:07] LABS: ALT 11 U/L (4-49); AST 31 U/L (17-59); African American GFR (CKD) >90 (>60 ml/min/1.73 sqM); Albumin 3.8 g/dL (3.5-5.0); Alkaline Phosphatase 50 U/L (38-126); Anion Gap 7 mmol/L; Blood Urea Nitrogen 11 mg/dL (9-20); Calcium 9.2 mg/dL (8.4-10.2); Carbon Dioxide 23 mmol/L (22-30); Chloride 106 mmol/L (98-107); Glucose 142 mg/dL (74-99); Magnesium 1.5 mg/dL (1.6-2.3); Non-African American GFR(CKD) >90 (>60 ml/min/1.73 sqM); Sodium 136 mmol/L (137-145); Total Bilirubin 0.9 mg/dL (0.2-1.3); Total Protein 6.3 g/dL (6.3-8.2)
[2019-09-17 15:08] LABS: INR 1.1 (<1.2); Prothrombin Time 10.9 sec (9.0-12.0)
[2019-09-17 15:10] LABS: Potassium 4.4 mmol/L (3.5-5.1)
[2019-09-17 15:11] LABS: Partial Thromboplastin Time 21.1 sec (22.0-30.0)
[2019-09-17 15:13] VITALS: BP 167/86
--- NOTE | 2019-09-17 15:47 | ED ---
General Adult HPI - General Chief complaint: Chest Pain Stated complaint: chest pain Time Seen by Provider: 09/17/19 14:05 Source: patient, family, EMS, RN notes reviewed, old records reviewed Mode of arrival: EMS Limitations: no limitations - History of Present Illness Initial comments: This is an 88-year-old male who presents emergency Department. Patient states he was going to get cataract surgery when he leaned back he complained of some left upper quadrant tenderness and it lasts about 3-4 minutes and patient told the staff that he did have a thoracic aortic aneurysm and they became concerned so they sent him to the emergency department. Patient states and his family is in the room and agrees that he does not want any surgery at any time on his aneurysm. Patient states the pain is been gone since about 3-4 minutes after it occurred and it was on the left upper quadrant he never had any chest pain or difficulty breathing. Patient denied any back pain. And patient states he thinks it was just because the change of position. Patient states even if it was dissecting or rupturing he does not want to be admitted and he does not want any surgery. She currently is symptom-free - Related Data Home Medications Medication Instructions Recorded Confirmed Levothyroxine Sodium [Synthroid] 50 mcg PO HS 11/08/13 08/25/18 Meloxicam 15 mg PO DAILY 11/08/13 08/25/18 Simvastatin [Zocor] 20 mg PO HS 11/08/13 08/25/18 Insulin Glargine [Lantus] 30 unit SQ QAM 08/25/18 08/28/18 Isosorbide Mononitrate ER [Imdur] 30 mg PO DAILY 08/25/18 08/25/18 Omeprazole [PriLOSEC] 40 mg PO DAILY 08/25/18 08/25/18 Pioglitazone [Actos] 30 mg PO DAILY 08/25/18 08/25/18 amLODIPine [Norvasc] 5 mg PO HS 08/25/18 08/25/18 amLODIPine [Norvasc] 10 mg PO DAILY 08/25/18 08/25/18 metFORMIN HCL [Glucophage] 1,000 mg PO BID 08/25/18 08/25/18 Previous Rx's Medication Instructions Recorded Hydrochlorothiazide [Hydrodiuril] 25 mg PO DAILY tab 03/10/18 Lisinopril [Zestril] 20 mg PO BID tab 03/10/18 Metoprolol Tartrate [Lopressor] 25 mg PO BID tab 03/10/18 hydrALAZINE HCL [Apresoline] 75 mg PO BID tab 03/10/18 Albuterol Inhaler [Ventolin Hfa 2 puff INHALATION RT-Q6H PRN #1 08/28/18 Inhaler] inhaler predniSONE [Deltasone] 40 mg PO DAILY #6 tab 08/28/18 Allergies Allergy/AdvReac Type Severity Reaction Status Date / Time lorazepam [From Ativan] AdvReac Hallucinati Verified 08/25/18 13:32 ons Review of Systems ROS Statement: Those systems with pertinent positive or pertinent negative responses have been documented in the HPI. ROS Other: All systems not noted in ROS Statement are negative. Past Medical History Past Medical History: Diabetes Mellitus, GERD/Reflux, Hyperlipidemia, Hypertension, Prostate Disorder, Thyroid Disorder, Vascular Disorder Additional Past Medical History / Comment(s): Aortic aneurysm, arthritis, hypothyroid (goiter), enlarged prostate, current prostate cancer (Dr. Roly ROWELL), retinopathy right eye (Dr. Varela/Jose), eye injection 3x right eye. History of Any Multi-Drug Resistant Organisms: None Reported Additional Past Surgical History / Comment(s): Left knee aspiration d/t swelling, AAA repair, prostate surgery. Past Anesthesia/Blood Transfusion Reactions: No Reported Reaction Past Psychological History: Depression Smoking Status: Former smoker Past Alcohol Use History: Occasional Past Drug Use History: None Reported - Past Family History Mother Family Medical History: Cancer (Breast cancer) Father Family Medical History: Congestive Heart Failure (CHF) General Exam - General Exam Comments Initial Comments: GENERAL: Patient is well-developed and well-nourished. Patient is nontoxic and well- hydrated and is in no acute distress. ENT: Neck is soft and supple. No significant lymphadenopathy is noted. Oropharynx is clear. Moist mucous membranes. Neck has full range of motion without eliciting any pain. EYES: The sclera were anicteric and conjunctiva were pink and moist. Extraocular movements were intact and pupils were equal round and reactive to light. Eyelids were unremarkable. PULMONARY: Unlabored respirations. Good breath sounds bilaterally. No audible rales rhonchi or wheezing was noted. CARDIOVASCULAR: There is a regular rate and rhythm without any murmurs gallops or rubs. ABDOMEN: Abdomen is nontender. SKIN: Skin is clear with no lesions or rashes and otherwise unremarkable. NEUROLOGIC: Patient is alert and oriented x3. Cranial nerves II through XII are grossly intact. Motor and sensory are also intact. Normal speech, volume and content. Symmetrical smile. MUSCULOSKELETAL: Normal extremities with adequate strength and full range of motion. LYMPHATICS: No significant lymphadenopathy is noted PSYCHIATRIC: Normal psychiatric evaluation. Limitations: no limitations Course Vital Signs 09/17/19 09/17/19 14:10 15:13 Temperature 98.4 F Pulse Rate 60 Respiratory 16 Rate Blood Pressure 182/86 167/86 O2 Sat by Pulse 92 L Oximetry Medical Decision Making - Medical Decision Making EKG shows sinus bradycardia 53 bpm NH interval 364 QRS is 104 QT interval 470 QTC is 441. Patient's EKG shows no ST segment elevation or depression. Patient's EKG shows some Q waves in inferior leads. Patient's blood pressure is normally in the 160s systolic according to himself and family. - Lab Data Result diagrams: 09/17/19 14:21 09/17/19 14:21 Lab Results 09/17/19 09/17/19 09/17/19 Range/Units 14:10 14:21 14:21 WBC 3.3 L (3.8-10.6) k/uL RBC 4.01 L (4.30-5.90) m/uL Hgb 11.0 L (13.0-17.5) gm/dL Hct 34.5 L (39.0-53.0) % MCV 86.2 (80.0-100.0) fL MCH 27.5 (25.0-35.0) pg MCHC 32.0 (31.0-37.0) g/dL RDW 14.7 (11.5-15.5) % Plt Count 107 L (150-450) k/uL Neutrophils % 71 % Lymphocytes % 15 % Monocytes % 8 % Eosinophils % 4 % Basophils % 0 % Neutrophils # 2.4 (1.3-7.7) k/uL Lymphocytes # 0.5 L (1.0-4.8) k/uL Monocytes # 0.3 (0-1.0) k/uL Eosinophils # 0.1 (0-0.7) k/uL Basophils # 0.0 (0-0.2) k/uL PT 10.9 (9.0-12.0) sec INR 1.1 (<1.2) APTT 21.1 L (22.0-30.0) sec Sodium (137-145) mmol/L Potassium (3.5-5.1) mmol/L Chloride (98-107) mmol/L Carbon Dioxide (22-30) mmol/L Anion Gap mmol/L BUN (9-20) mg/dL Creatinine (0.66-1.25) mg/dL Est GFR (CKD-EPI)AfAm (>60 ml/min/1.73 sqM) Est GFR (CKD-EPI)NonAf (>60 ml/min/1.73 sqM) Glucose (74-99) mg/dL POC Glucose (mg/dL) 160 H (75-99) mg/dL POC Glu [employer] ID Renetta Galarza Calcium (8.4-10.2) mg/dL Magnesium (1.6-2.3) mg/dL Total Bilirubin (0.2-1.3) mg/dL AST (17-59) U/L ALT (4-49) U/L Alkaline Phosphatase (38-126) U/L Troponin I (0.000-0.034) ng/mL Total Protein (6.3-8.2) g/dL Albumin (3.5-5.0) g/dL 09/17/19 09/17/19 Range/Units 14:21 14:21 WBC (3.8-10.6) k/uL RBC (4.30-5.90) m/uL Hgb (13.0-17.5) gm/dL Hct (39.0-53.0) % MCV (80.0-100.0) fL MCH (25.0-35.0) pg MCHC (31.0-37.0) g/dL RDW (11.5-15.5) % Plt Count (150-450) k/uL Neutrophils % % Lymphocytes % % Monocytes % % Eosinophils % % Basophils % % Neutrophils # (1.3-7.7) k/uL Lymphocytes # (1.0-4.8) k/uL Monocytes # (0-1.0) k/uL Eosinophils # (0-0.7) k/uL Basophils # (0-0.2) k/uL PT (9.0-12.0) sec INR (<1.2) APTT (22.0-30.0) sec Sodium 136 L (137-145) mmol/L Potassium 4.4 (3.5-5.1) mmol/L Chloride 106 (98-107) mmol/L Carbon Dioxide 23 (22-30) mmol/L Anion Gap 7 mmol/L BUN 11 (9-20) mg/dL Creatinine 0.58 L (0.66-1.25) mg/dL Est GFR (CKD-EPI)AfAm >90 (>60 ml/min/1.73 sqM) Est GFR (CKD-EPI)NonAf >90 (>60 ml/min/1.73 sqM) Glucose 142 H (74-99) mg/dL POC Glucose (mg/dL) (75-99) mg/dL POC Glu Television Service Engineer ID Calcium 9.2 (8.4-10.2) mg/dL Magnesium 1.5 L (1.6-2.3) mg/dL Total Bilirubin 0.9 (0.2-1.3) mg/dL AST 31 (17-59) U/L ALT 11 (4-49) U/L Alkaline Phosphatase 50 (38-126) U/L Troponin I <0.012 (0.000-0.034) ng/mL Total Protein 6.3 (6.3-8.2) g/dL Albumin 3.8 (3.5-5.0) g/dL Disposition Clinical Impression: Resolved abdominal pain Disposition: HOME SELF-CARE Condition: Good Instructions (If sedation given, give patient instructions): Abdominal Pain (ED) Referrals: Luis Alberto Payne MD [Primary Care Provider] - 1-2 days Time of Disposition: 15:46
== END 2019-09-17 16:13 | disposition home or self-care (01) ==
LOC: EC 14:05 → SUPCPDRO 14:05 → EC 16:13
DX: R07.9 Chest pain, unspecified (principal); R00.1 Bradycardia, unspecified; K21.9 Gastro-esophageal reflux disease without esophagitis; I10 Essential (primary) hypertension; E78.5 Hyperlipidemia, unspecified; E03.9 Hypothyroidism, unspecified; N40.0 Benign prostatic hyperplasia without lower urinary tract symptoms; C61 Malignant neoplasm of prostate; I71.2 Thoracic aortic aneurysm, without rupture; E11.319 Type 2 diabetes mellitus with unspecified diabetic retinopathy without macular edema; Z79.890 Hormone replacement therapy; Z79.1 Long term (current) use of non-steroidal anti-inflammatories (NSAID); Z79.84 Long term (current) use of oral hypoglycemic drugs; Z79.899 Other long term (current) drug therapy; Z88.8 Allergy status to other drugs, medicaments and biological substances; Z98.890 Other specified postprocedural states
CPT/HCPCS: 36415; 80053; 83735; 84484; 85025; 85610; 85730; 93005; 99285

== ENCOUNTER 2019-09-28 20:38 | Observation (INO) | payer MEDICARE ==
--- NOTE | 2019-09-28 21:09 | ED ---
Weakness HPI - General Chief complaint: Weakness Stated complaint: Weakness Source: patient, EMS, RN notes reviewed, old records reviewed Mode of arrival: EMS Limitations: physical limitation - History of Present Illness Initial comments: This is an 88-year-old male is no presents today for evaluation regards to weakness dehydration not feeling well. Patient feels significantly weak and lethargic. Admits to diminished appetite. No fevers no cough or congestion no chest pain or shortness of breath no nausea vomiting or diarrheapatient has history of diabetes high blood pressure high cholesterol. MD Complaint: generalized weakness -: days(s) Location: generalized Severity: moderate Severity scale (1-10): 4 Quality: aching Consistency: constant Improves with: none Worsens with: movement Context: recent illness, history of similar Associated Symptoms: denies other symptoms, loss of appetite, nausea/vomiting - Related Data Home Medications Medication Instructions Recorded Confirmed Levothyroxine Sodium [Synthroid] 50 mcg PO HS 11/08/13 08/25/18 Meloxicam 15 mg PO DAILY 11/08/13 08/25/18 Simvastatin [Zocor] 20 mg PO HS 11/08/13 08/25/18 Insulin Glargine [Lantus] 30 unit SQ QAM 08/25/18 08/28/18 Isosorbide Mononitrate ER [Imdur] 30 mg PO DAILY 08/25/18 08/25/18 Omeprazole [PriLOSEC] 40 mg PO DAILY 08/25/18 08/25/18 Pioglitazone [Actos] 30 mg PO DAILY 08/25/18 08/25/18 amLODIPine [Norvasc] 5 mg PO HS 08/25/18 08/25/18 amLODIPine [Norvasc] 10 mg PO DAILY 08/25/18 08/25/18 metFORMIN HCL [Glucophage] 1,000 mg PO BID 08/25/18 08/25/18 Previous Rx's Medication Instructions Recorded Hydrochlorothiazide [Hydrodiuril] 25 mg PO DAILY tab 03/10/18 Lisinopril [Zestril] 20 mg PO BID tab 03/10/18 Metoprolol Tartrate [Lopressor] 25 mg PO BID tab 03/10/18 hydrALAZINE HCL [Apresoline] 75 mg PO BID tab 03/10/18 Albuterol Inhaler [Ventolin Hfa 2 puff INHALATION RT-Q6H PRN #1 08/28/18 Inhaler] inhaler predniSONE [Deltasone] 40 mg PO DAILY #6 tab 08/28/18 Allergies Allergy/AdvReac Type Severity Reaction Status Date / Time lorazepam [From Ativan] AdvReac Hallucinati Verified 09/28/19 20:48 ons Review of Systems ROS Statement: Those systems with pertinent positive or pertinent negative responses have been documented in the HPI. ROS Other: All systems not noted in ROS Statement are negative. Past Medical History Past Medical History: Diabetes Mellitus, GERD/Reflux, Hyperlipidemia, Hypertension, Prostate Disorder, Thyroid Disorder, Vascular Disorder Additional Past Medical History / Comment(s): Aortic aneurysm, arthritis, hypothyroid (goiter), enlarged prostate, current prostate cancer (Dr. Roly ROWELL), retinopathy right eye (Dr. Varela/Jose), eye injection 3x right eye. History of Any Multi-Drug Resistant Organisms: None Reported Additional Past Surgical History / Comment(s): Left knee aspiration d/t swelling, AAA repair, prostate surgery. Past Anesthesia/Blood Transfusion Reactions: No Reported Reaction Past Psychological History: Depression Smoking Status: Former smoker Past Alcohol Use History: Occasional Past Drug Use History: None Reported - Past Family History Mother Family Medical History: Cancer (Breast cancer) Father Family Medical History: Congestive Heart Failure (CHF) General Exam Limitations: physical limitation General appearance: alert, in no apparent distress Head exam: Present: atraumatic, normocephalic, normal inspection Eye exam: Present: normal appearance, PERRL, EOMI. Absent: scleral icterus, conjunctival injection, periorbital swelling ENT exam: Present: normal exam, mucous membranes dry Neck exam: Present: normal inspection. Absent: tenderness, meningismus, lymphadenopathy Respiratory exam: Present: normal lung sounds bilaterally. Absent: respiratory distress, wheezes, rales, rhonchi, stridor Cardiovascular Exam: Present: regular rate, normal rhythm, normal heart sounds. Absent: systolic murmur, diastolic murmur, rubs, gallop, clicks GI/Abdominal exam: Present: soft, normal bowel sounds. Absent: distended, tenderness, guarding, rebound, rigid Extremities exam: Present: normal inspection, full ROM, normal capillary refill. Absent: tenderness, pedal edema, joint swelling, calf tenderness Back exam: Present: normal inspection Neurological exam: Present: alert, oriented X3, CN II-XII intact Psychiatric exam: Present: normal affect, normal mood Skin exam: Present: warm, dry, intact, normal color. Absent: rash Course Vital Signs 09/28/19 09/28/19 09/28/19 20:40 21:32 22:14 Temperature 97.7 F 97.6 F Pulse Rate 63 64 61 Respiratory 16 18 18 Rate Blood Pressure 157/81 138/76 147/76 O2 Sat by Pulse 96 92 L 96 Oximetry 09/28/19 22:50 Temperature Pulse Rate 65 Respiratory 18 Rate Blood Pressure 140/71 O2 Sat by Pulse 92 L Oximetry - Reevaluation(s) Reevaluation #1: 09/28/19 23:13 Medical record is reviewed Reevaluation #2: 09/28/19 23:13 Patient is having mildly improved with hydration here in the ER Reevaluation #3: 09/29/19 00:07 No improvement in symptoms - Consultations Consultation #1: Spoke with ganga, Dr. Baker, agreeable for admission EKG Findings - EKG Comments: EKG Findings:: EKG shows sinus rhythm of 68, W[place] 3, QRS 112, QTc 467 Medical Decision Making - Medical Decision Making 88 male to the ER for evaluation weakness severe weakness and dehydration lactic acidosis will admit for rehydration - Lab Data Result diagrams: 09/28/19 20:44 09/28/19 20:44 Lab Results 09/28/19 09/28/19 09/28/19 Range/Units 20:44 20:44 20:44 WBC 4.2 (3.8-10.6) k/uL RBC 4.48 (4.30-5.90) m/uL Hgb 12.1 L (13.0-17.5) gm/dL Hct 39.1 (39.0-53.0) % MCV 87.3 (80.0-100.0) fL MCH 26.9 (25.0-35.0) pg MCHC 30.8 L (31.0-37.0) g/dL RDW 14.8 (11.5-15.5) % Plt Count 119 L (150-450) k/uL Neutrophils % 77 % Lymphocytes % 14 % Monocytes % 5 % Eosinophils % 3 % Basophils % 0 % Neutrophils # 3.3 (1.3-7.7) k/uL Lymphocytes # 0.6 L (1.0-4.8) k/uL Monocytes # 0.2 (0-1.0) k/uL Eosinophils # 0.1 (0-0.7) k/uL Basophils # 0.0 (0-0.2) k/uL Hypochromasia Slight PT 10.6 (9.0-12.0) sec INR 1.0 (<1.2) APTT 24.9 (22.0-30.0) sec Sodium 137 (137-145) mmol/L Potassium 4.0 (3.5-5.1) mmol/L Chloride 103 (98-107) mmol/L Carbon Dioxide 16 L (22-30) mmol/L Anion Gap 18 mmol/L BUN 14 (9-20) mg/dL Creatinine 0.68 (0.66-1.25) mg/dL Est GFR (CKD-EPI)AfAm >90 (>60 ml/min/1.73 sqM) Est GFR (CKD-EPI)NonAf 86 (>60 ml/min/1.73 sqM) Glucose 134 H (74-99) mg/dL Plasma Lactic Acid [place] (0.7-2.0) mmol/L Calcium 9.7 (8.4-10.2) mg/dL Phosphorus 3.3 (2.5-4.5) mg/dL Magnesium 1.6 (1.6-2.3) mg/dL Total Bilirubin 0.6 (0.2-1.3) mg/dL AST 28 (17-59) U/L ALT 11 (4-49) U/L Alkaline Phosphatase 61 (38-126) U/L Troponin I (0.000-0.034) ng/mL Total Protein 6.6 (6.3-8.2) g/dL Albumin 4.1 (3.5-5.0) g/dL Urine Color Urine Appearance (Clear) Urine pH (5.0-8.0) Ur Specific [place] (1.001-1.035) Urine Protein (Negative) Urine Glucose (UA) (Negative) Urine Ketones (Negative) Urine Blood (Negative) Urine Nitrite (Negative) Urine Bilirubin (Negative) Urine Urobilinogen (<2.0) mg/dL Ur Leukocyte Esterase (Negative) 09/28/19 09/28/1909/27/20 Range/Units 20:44 20:44 22:59 WBC (3.8-10.6) k/uL RBC (4.30-5.90) m/uL Hgb (13.0-17.5) gm/dL Hct (39.0-53.0) % MCV (80.0-100.0) fL MCH (25.0-35.0) pg MCHC (31.0-37.0) g/dL RDW (11.5-15.5) % Plt Count (150-450) k/uL Neutrophils % % Lymphocytes % % Monocytes % % Eosinophils % % Basophils % % Neutrophils # (1.3-7.7) k/uL Lymphocytes # (1.0-4.8) k/uL Monocytes # (0-1.0) k/uL Eosinophils # (0-0.7) k/uL Basophils # (0-0.2) k/uL Hypochromasia PT (9.0-12.0) sec INR (<1.2) APTT (22.0-30.0) sec Sodium (137-145) mmol/L Potassium (3.5-5.1) mmol/L Chloride (98-107) mmol/L Carbon Dioxide (22-30) mmol/L Anion Gap mmol/L BUN (9-20) mg/dL Creatinine (0.66-1.25) mg/dL Est GFR (CKD-EPI)AfAm (>60 ml/min/1.73 sqM) Est GFR (CKD-EPI)NonAf (>60 ml/min/1.73 sqM) Glucose (74-99) mg/dL Plasma Lactic Acid [place] 7.0 H* (0.7-2.0) mmol/L Calcium (8.4-10.2) mg/dL Phosphorus (2.5-4.5) mg/dL Magnesium (1.6-2.3) mg/dL Total Bilirubin (0.2-1.3) mg/dL AST (17-59) U/L ALT (4-49) U/L Alkaline Phosphatase (38-126) U/L Troponin I <0.012 (0.000-0.034) ng/mL Total Protein (6.3-8.2) g/dL Albumin (3.5-5.0) g/dL Urine Color Light Yellow Urine Appearance Clear (Clear) Urine pH 5.5 (5.0-8.0) Ur Specific [place] 1.008 (1.001-1.035) Urine Protein Trace H (Negative) Urine Glucose (UA) Negative (Negative) Urine Ketones 1+ H (Negative) Urine Blood Negative (Negative) Urine Nitrite Negative (Negative) Urine Bilirubin Negative (Negative) Urine Urobilinogen <2.0 (<2.0) mg/dL Ur Leukocyte Esterase Negative (Negative) - Radiology Data Radiology results: report reviewed (CXR is negative for acute disease), image reviewed Disposition Clinical Impression: Dehydration, Weakness, Lactic acidosis Disposition: ADMITTED IP TO THIS HOSP Condition: Fair Is patient prescribed a controlled substance at d/c from ED?: No Referrals: Luis Alberto Payne MD [Primary Care Provider] - 1-2 days
--- NOTE | 2019-09-28 21:22 | XR ---
EXAMINATION TYPE: XR chest 2V DATE OF EXAM: 09/28/2019 COMPARISON: 08/26/2018 HISTORY: Weakness TECHNIQUE: FINDINGS: There is no heart failure nor confluent pneumonic infiltrate. Heart is slightly enlarged. T horacic aorta is atherosclerotic and tortuous. There is evidence of aneurysm of the lower thoracic ao rta that probably measures more than 7 cm. Costophrenic angles are clear. There are no hilar masses. IMPRESSION: Large aneurysm of the lower thoracic aorta appears increased compared to last exam. No ac miguel lung disease. No heart failure.
[2019-09-28 21:33] VITALS: RESP 18
[2019-09-28 21:34] LABS: Basophils % (A) 0 %; Eosinophils # (A) 0.1 k/uL (0-0.7); Eosinophils % (A) 3 %; HCT 39.1 % (39.0-53.0); HGB 12.1 gm/dL (13.0-17.5); Hypochromasia Slight; Lymphocytes # (A) 0.6 k/uL (1.0-4.8); Lymphocytes % (A) 14 %; MCH 26.9 pg (25.0-35.0); MCHC 30.8 g/dL (31.0-37.0); MCV 87.3 fL (80.0-100.0); Mean Platelet Volume 8.7; Monocytes # (A) 0.2 k/uL (0-1.0); Monocytes % (A) 5 %; Neutrophils # (A) 3.3 k/uL (1.3-7.7); Neutrophils % (A) 77 %; Platelet Count 119 k/uL (150-450); RBC 4.48 m/uL (4.30-5.90); RDW 14.8 % (11.5-15.5); WBC 4.2 k/uL (3.8-10.6)
[2019-09-28 21:38] LABS: ALT 11 U/L (4-49); AST 28 U/L (17-59); African American GFR (CKD) >90 (>60 ml/min/1.73 sqM); Albumin 4.1 g/dL (3.5-5.0); Alkaline Phosphatase 61 U/L (38-126); Anion Gap 18 mmol/L; Blood Urea Nitrogen 14 mg/dL (9-20); Calcium 9.7 mg/dL (8.4-10.2); Carbon Dioxide 16 mmol/L (22-30); Chloride 103 mmol/L (98-107); Glucose 134 mg/dL (74-99); Magnesium 1.6 mg/dL (1.6-2.3); Non-African American GFR(CKD) 86 (>60 ml/min/1.73 sqM); Phosphorus 3.3 mg/dL (2.5-4.5); Sodium 137 mmol/L (137-145); Total Bilirubin 0.6 mg/dL (0.2-1.3); Total Protein 6.6 g/dL (6.3-8.2)
[2019-09-28 21:44] LABS: Partial Thromboplastin Time 24.9 sec (22.0-30.0); Prothrombin Time 10.6 sec (9.0-12.0)
[2019-09-28] MEDS ORDERED: SODIUM CHLORIDE 0.9% 500 ML 500 ML IV ONE ×2 (21:49→22:13)
[2019-09-28] MEDS ORDERED: SODIUM CHLORIDE 0.9% 2,000 ML IV STA (22:21)
[2019-09-28] MEDS ORDERED: SODIUM CHLORIDE 0.9% 1,000 ML IV ONE (22:48)
[2019-09-28 23:15] LABS: Appearance,Urine Clear (Clear); Bilirubin,Urine Negative (Negative); Blood,Urine Negative (Negative); Color,Urine Light Yellow; Glucose,Urine (UA) Negative (Negative); Ketones,Urine 1+ (Negative); Leukocyte Esterase,Urine Negative (Negative); Nitrite,Urine Negative (Negative); PH, Urine 5.5 (5.0-8.0); Protein,Urine Trace (Negative); Specific Gravity,Urine 1.008 (1.001-1.035); Urobilinogen,Urine <2.0 mg/dL (<2.0)
[2019-09-29] MEDS ORDERED: SODIUM CHLORIDE 0.9% 1,000 ML IV ONE (00:05)
--- NOTE | 2019-09-29 01:59 | P.HPIM ---
History of Present Illness H&P Date: 09/29/19 The patient is an 88-year-old male with a PMH of tobacco abuse (quit 5 years ago), hypertension, hyperlipidemia, type II DM, AAA (s/p repair 2003), and TAA (monitored from 4024-4418 with no apparent change) now presents to the ED with complaints of feeling weak. The patient notes that over the past few days he just hadn't quite felt like himself and had not been eating as much as usual. He notes that earlier today as he was walking with his cane, he felt significantly more tired and had to sit down to rest. He felt as though something was wrong and thereby activated EMS and presented to the ED. He notes that he feels dehydrated but otherwise has no active complaints. He denied loss of consciousness, or any other preceding symptoms. He also denied unilateral weakness, tingling, or numbness. He denied nausea, vomiting, diarrhea, fever, chills, cough, chest pain, or shortness of breath. He underwent an extensive evaluation in the emergency room with a chest x-ray showing lower thoracic aortic aneurysm 7 cm, increased from prior, with EKG showing sinus rhythm at 68 bpm with first-degree AV block left axis deviation, and an incomplete right bundle branch block, all previously seen on an older EKG. Laboratory evaluation revealed a lactate of 7.0, troponin less than 0.012, WBC count 4.2, hemoglobin 12.1, platelets 119, sodium 137, potassium 4.0, BUN 14, creatinine 0.68, and gl ucose 134. Review of Systems Pertinent positives and negatives as discussed in HPI, a complete review of systems was performed and all other systems are negative. Past Medical History Past Medical History: Diabetes Mellitus, GERD/Reflux, Hyperlipidemia, Hypertension, Prostate Disorder, Thyroid Disorder, Vascular Disorder Additional Past Medical History / Comment(s): Aortic aneurysm, arthritis, hypothyroid (goiter), enlarged prostate, current prostate cancer (Dr. Roly ROWELL), retinopathy right eye (Dr. Varela/Jose), eye injection 3x right eye. History of Any Multi-Drug Resistant Organisms: None Reported Additional Past Surgical History / Comment(s): Left knee aspiration d/t swelling, AAA repair, prostate surgery. Past Anesthesia/Blood Transfusion Reactions: No Reported Reaction Past Psychological History: Depression Smoking Status: Former smoker Past Alcohol Use History: Occasional Past Drug Use History: None Reported - Past Family History Mother Family Medical History: Cancer (Breast cancer) Father Family Medical History: Congestive Heart Failure (CHF) Medications and Allergies Home Medications Medication Instructions Recorded Confirmed Type Levothyroxine Sodium [Synthroid] 50 mcg PO HS 11/08/13 08/25/18 History Meloxicam 15 mg PO DAILY 11/08/13 08/25/18 History Simvastatin [Zocor] 20 mg PO HS 11/08/13 08/25/18 History Hydrochlorothiazide [Hydrodiuril] 25 mg PO DAILY tab 03/10/18 08/25/18 Rx Lisinopril [Zestril] 20 mg PO BID tab 03/10/18 08/25/18 Rx Metoprolol Tartrate [Lopressor] 25 mg PO BID tab 03/10/18 08/25/18 Rx hydrALAZINE HCL [Apresoline] 75 mg PO BID tab 03/10/18 08/25/18 Rx Insulin Glargine [Lantus] 30 unit SQ QAM 08/25/18 08/28/18 History Isosorbide Mononitrate ER [Imdur] 30 mg PO DAILY 08/25/18 08/25/18 History Omeprazole [PriLOSEC] 40 mg PO DAILY 08/25/18 08/25/18 History Pioglitazone [Actos] 30 mg PO DAILY 08/25/18 08/25/18 History amLODIPine [Norvasc] 5 mg PO HS 08/25/18 08/25/18 History amLODIPine [Norvasc] 10 mg PO DAILY 08/25/18 08/25/18 History metFORMIN HCL [Glucophage] 1,000 mg PO BID 08/25/18 08/25/18 History Albuterol Inhaler [Ventolin Hfa 2 puff INHALATION RT-Q6H PRN #1 08/28/18 Rx Inhaler] inhaler predniSONE [Deltasone] 40 mg PO DAILY #6 tab 08/28/18 Rx Allergies Allergy/AdvReac Type Severity Reaction Status Date / Time lorazepam [From Ativan] AdvReac Hallucinati Verified 09/28/19 20:48 ons Physical Exam Vitals: Vital Signs Temp Pulse Resp BP Pulse Ox 09/29/19 01:11 97.8 F 71 18 147/83 93 L 09/28/19 22:50 65 18 140/71 92 L 09/28/19 22:14 61 18 147/76 96 09/28/19 21:32 97.6 F 64 18 138/76 92 L 09/28/19 20:40 97.7 F 63 16 157/81 96 Intake and Output 09/28/19 09/28/19 09/29/19 14:59 22:59 06:59 Other: Weight 92.986 kg General: non toxic, no distress, appears at stated age, over-weight Derm: no unusual rashes/lesions no unusual ecchymoses, warm, dry Head: atraumatic, normocephalic, symmetric Eyes: EOMI, no lid lag, anicteric sclera, pupils equal round reactive to light ENT: Nose and ears atraumatic, no thrush, no pharyngeal erythema Neck: No thyromegaly, no cervical lymphadenopathy, trachea midline, supple Mouth: no lip lesion, mucus membranes moist Cardiovascular: S1S2 reg, no murmur, positive posterior tibial pulse bilateral, 1+ sanaz LE edema, capillary refill less than 2 seconds Lungs: CTA bilateral, no rhonchi, no rales , no accessory muscle use Abdominal: soft, nontender to palpation, no guarding, no appreciable organomegaly, normal bowel sounds Ext: no gross muscle atrophy, muscle strength 4 out of 5 in all 4 extremities grossly, no contractures, Neuro: CN II-XI grossly intact, light touch intact all 4 extremities, finger to nose within normal limits, Psych: Alert, oriented, appropriate affect Results CBC & Chem 7: 09/28/19 20:44 09/28/19 20:44 Labs: Abnormal Lab Results - Last 24 Hours (Table) 09/28/19 09/28/19 09/28/19 Range/Units 20:44 20:44 20:44 Hgb 12.1 L (13.0-17.5) gm/dL MCHC 30.8 L (31.0-37.0) g/dL Plt Count 119 L (150-450) k/uL Lymphocytes # 0.6 L (1.0-4.8) k/uL Carbon Dioxide 16 L (22-30) mmol/L Glucose 134 H (74-99) mg/dL Plasma Lactic Acid [place] 7.0 H* (0.7-2.0) mmol/L Urine Protein (Negative) Urine Ketones (Negative) 09/28/19 09/28/19 Range/Units 22:59 23:28 Hgb (13.0-17.5) gm/dL MCHC (31.0-37.0) g/dL Plt Count (150-450) k/uL Lymphocytes # (1.0-4.8) k/uL Carbon Dioxide (22-30) mmol/L Glucose (74-99) mg/dL Plasma Lactic Acid [place] 6.3 H* (0.7-2.0) mmol/L Urine Protein Trace H (Negative) Urine Ketones 1+ H (Negative) Assessment and Plan Plan: Lactic acidosis, unknown etiology -Patient denies fall or LOC. Unlikely seizure. Patient not on ASA. No known CO exposure. -Possibly due to metformin (patient has been on 1000 mg BID for years) -Will c/w IVFs for now and monitor to resolution Expanding thoracic aortic aneurysm, 6.4 cm - 7.0 cm -The patient was previously seen 1 year ago by vascular surgery though failed to follow-up as an outpatient -Consider re-consulting Type 2 DM -MICHEL with FS -C/w Levemir 25 U qam (takes 30 U qam) -Consider DCing Metformin on DC if no clear etiology identified for lactic acidosis HTN -C/w Lisinopril, Imdur, HCTZ, and Norvasc HLD -C/w Zocor DVT prophylaxis -Heparin The patient is admitted with an anticipated less than 2 midnight stay for evaluation of weakness CODE STATUS: No Code Discussed with: Patient Anticipated discharge date: 1-[address]: Home A total of 40 minutes was spent on the care of this complex patient more than 50% of the time was spent in counseling and care coordination.
--- NOTE | 2019-09-29 04:44 | CT ---
EXAMINATION TYPE: CT angio thor/abd pel aorta DATE OF EXAM: 09/29/2019 COMPARISON: 08/25/2018 Increasing aneurysm HISTORY: aneurysm CT DLP: 1520.9 mGycm Automated exposure control for dose reduction was used. CONTRAST: Performed with IV Contrast, patient injected with 100 mL of Isovue 370. There are 3-D post processed images. FINDINGS: There is some patchy atelectasis in the mid and lower lung jansen. Heart is enlarged. There is no per icardial effusion. There is coronary artery calcification. There is no mediastinal adenopathy. There are no hilar masses. Liver spleen stomach pancreas appear normal. There are large calcified gallstones. There is 2.5 cm low-density right adrenal mass suggestive of benign disease. Kidneys show satisfactor y contrast opacification. There is 2 cm cortical cyst upper pole right kidney. There is no hydronephr osis. Bladder distends smoothly. Prostate is enlarged and measures 6 cm. There is lipoma in the left iliopsoas muscle. There is no inguinal hernia. There is no free fluid in the pelvis. There is subcuta neous density over the anterior abdomen that could be injection sites. There is no mesenteric edema. There is no ascites or free air. There is no evidence of a bowel obstruction. There is coarse trabecu la involving the T11 vertebra consistent with a hemangioma. There is 3.6 cm irregular aneurysm involving the entire abdominal aorta extending to the iliac arteri es. There is mild aneurysm of the common iliac arteries that measure up to 1.5 cm. There is fusiform aneurysm involving the lower thoracic aorta that measures up to 7.3 cm. There is irregular plaque for mation and significant thrombus on the posterior wall. Thrombus measures up to 3.3 cm in thickness. There is arterial flow in the celiac artery and superior mesenteric artery. There is arterial flow in both renal arteries. There is arterial flow in the iliac and femoral arteries bilaterally. There is variable plaque formation with luminal narrowing in the left iliac artery up to 50%. IMPRESSION: Atherosclerotic vascular disease. Aneurysm of the thoracic and abdominal aorta as above. Aneurysm of the lower thoracic aorta has increased from 6.8 cm to 7.3 cm compared to last exam. No evidence of le akage. Aortoiliac aneurysm not significantly different in the abdomen. No evidence of hemodynamic stenosis.
[2019-09-29 05:42] VITALS: BP 179/86; PULSE 72; TEMP 97.9
[2019-09-29 07:07] LABS: Glucose,Whole Blood 109 mg/dL (75-99)
[2019-09-29] MEDS ORDERED: ENOXAPARIN 40 MG/0.4 ML SYRINGE SQ SCH (09:00)
[2019-09-29] MEDS: INSULIN ASPART (NovoLOG) 100 UNIT/ML VIAL SQ SCH ×2 (09:21→12:22)
[2019-09-29] MEDS: INSULIN DETEMIR (LEVEMIR) 100 UNIT/ML SYR SQ SCH ×2 (09:21→12:21)
[2019-09-29 12:00] LABS: Glucose,Whole Blood 287 mg/dL (75-99)
[2019-09-29] MEDS ORDERED: ISOSORBIDE MONONITRATE ER 30 MG TAB.ER.24H PO SCH (12:30)
[2019-09-29] MEDS ORDERED: LISINOPRIL 20 MG TAB PO SCH (12:30)
[2019-09-29] MEDS ORDERED: amLODIPine 10 MG TAB PO SCH (12:30)
[2019-09-29] MEDS ORDERED: METOPROLOL TARTRATE 25 MG TAB PO SCH (12:30)
[2019-09-29] MEDS ORDERED: LEVOTHYROXINE 50 MCG TAB PO SCH (12:30)
--- NOTE | 2019-09-29 12:36 | P.DS ---
Providers Date of admission: 09/29/19 00:06 Expected date of discharge: 09/29/19 Attending physician: Carlos Baker MD Consults: 09/29/19 08:30 Consult Physician Stat Consulting Provider: Swathi Yip Consult Reason/Comments: AAA Do you want consulting provider notified?: Yes Primary care physician: [facility] Hospital Course: The patient is an 88-year-old male with a PMH of tobacco abuse (quit 5 years ago), hypertension, hyperlipidemia, type II DM, AAA (s/p repair 2003), and TAA (monitored from 1721-5142 with no apparent change) now presents to the ED with complaints of feeling weak. The patient notes that over the past few days he just hadn't quite felt like himself and had not been eating as much as usual. He notes that earlier today as he was walking with his cane, he felt significantly more tired and had to sit down to rest. He felt as though something was wrong and thereby activated EMS and presented to the ED. He notes that he feels dehydrated but otherwise has no active complaints. He denied loss of consciousness, or any other preceding symptoms. He also denied unilateral weakness, tingling, or numbness. He denied nausea, vomiting, diarrhea, fever, chills, cough, chest pain, or shortness of breath. He underwent an extensive evaluation in the emergency room with a chest x-ray showing lower thoracic aortic aneurysm 7 cm, increased from prior, with EKG showing sinus rhythm at 68 bpm with first-degree AV block left axis deviation, and an incomplete right bundle branch block, all previously seen on an older EKG. Laboratory evaluation revealed a lactate of 7.0, troponin less than 0.012, WBC count 4.2, hemoglobin 12.1, platelets 119, sodium 137, potassium 4.0, BUN 14, creatinine 0.68, and glucose 134. The etiology of his lactic acidosis was unknown. He denied any falls or loss of consciousness. It was unlikely that he had a seizure. He had no exposure to carbon monoxide. It was reported the patient had been taking metformin for a number of years. He was started on normal saline and lactic acid was repeated until within normal limits. He did have a history of thoracic aortic aneurysm which has been slowly expanding from 6.4-7 cm. Vascular surgery was consulted. Family of the patient did not want any consultation or management regarding this thoracic aortic aneurysm. His home medications were otherwise resumed. Patient was seen and examined. No acute events overnight. Patient with no complains. He denies any chest pain, shortness breath or palpitations. No nausea or vomiting. No fever or chills. Discharge diagnosis Lactic acidosis unknown etiology Expanding thoracic aneurysm Type 2 diabetes mellitus Hypertension Dyslipidemia Patient's lactic acidosis is of unknown origin. His lactic acid is now within normal limits. This could be related to his metformin use. His metformin will be discontinued. Patient's family did not want any further investigation or consultation regarding his expanding thoracic aneurysm. His [id number] glucose is 287 for which he is being treated with Levemir and insulin sliding scale. His home medication of amlodipine, Imdur, lisinopril and metoprolol will be restarted for hypertension. Patient to continue taking simvastatin for dyslipidemia. Patient's symptoms have improved. Plans to DC home today with close follow-up with his PCP within 3 days. Patient verbalized understanding of the plan. Pertinent Studies: CT thoracic aorta, chest x-ray Patient Condition at Discharge: Stable Plan - Discharge Summary Discharge Rx Participant: No New Discharge Prescriptions: Continue Levothyroxine Sodium [Synthroid] 50 mcg PO DAILY@0600 Simvastatin [Zocor] 20 mg PO HS@2100 Isosorbide Mononitrate ER [Imdur] 30 mg PO DAILY@0600 Omeprazole [PriLOSEC] 40 mg PO DAILY@0600 amLODIPine [Norvasc] 10 mg PO DAILY@0600 Aspirin EC [Ecotrin Low Dose] 81 mg PO DAILY@0600 Lisinopril [Zestril] 20 mg PO BID@0600,1800 Metoprolol Tartrate [Lopressor] 25 mg PO AC-BID@0600,1800 Insulin Glargine,Hum.rec.anlog [Lantus Solostar] 20 unit SQ QAM Discontinued Pioglitazone [Actos] 30 mg PO DAILY@0600 metFORMIN HCL ER [Glucophage Xr] 1,000 mg PO AC-BID@0600,1800 Discharge Medication List Levothyroxine Sodium [Synthroid] 50 mcg PO DAILY@0600 11/08/13 [History] Simvastatin [Zocor] 20 mg PO HS@2100 11/08/13 [History] Isosorbide Mononitrate ER [Imdur] 30 mg PO DAILY@0600 08/25/18 [History] Omeprazole [PriLOSEC] 40 mg PO DAILY@0600 08/25/18 [History] Aspirin EC [Ecotrin Low Dose] 81 mg PO DAILY@0600 09/29/19 [History] Insulin Glargine,Hum.rec.anlog [Lantus Solostar] 20 unit SQ QAM 09/29/19 [History] Lisinopril [Zestril] 20 mg PO BID@0600,1800 09/29/19 [History] Metoprolol Tartrate [Lopressor] 25 mg PO AC-BID@0600,1800 09/29/19 [History] amLODIPine [Norvasc] 10 mg PO DAILY@0600 09/29/19 [History] Follow up Appointment(s)/Referral(s): [facility], [NON-STAFF] - Luis Alberto Payne MD [Primary Care Provider] - 1-2 days Activity/Diet/Wound Care/Special Instructions: Diet: Cardiac diabetic Follow-up with PCP within 3 days of discharge. Take all medications as advised. Discharge Disposition: HOME SELF-CARE
== END 2019-09-29 17:14 | disposition home or self-care (01) ==
LOC: EC 20:38 → 5NMEDONC 09-29 00:06
PROVIDERS: ADMIT Internal Medicine; ATTEND Internal Medicine
DX: E87.2 Acidosis (principal); I71.2 Thoracic aortic aneurysm, without rupture; E86.0 Dehydration; I45.10 Unspecified right bundle-branch block; I44.0 Atrioventricular block, first degree; C61 Malignant neoplasm of prostate; I10 Essential (primary) hypertension; E78.5 Hyperlipidemia, unspecified; E11.319 Type 2 diabetes mellitus with unspecified diabetic retinopathy without macular edema; K21.9 Gastro-esophageal reflux disease without esophagitis; E04.9 Nontoxic goiter, unspecified; E03.9 Hypothyroidism, unspecified; M19.90 Unspecified osteoarthritis, unspecified site; F32.9 Major depressive disorder, single episode, unspecified; Z79.890 Hormone replacement therapy; Z79.1 Long term (current) use of non-steroidal anti-inflammatories (NSAID); Z79.899 Other long term (current) drug therapy; Z79.4 Long term (current) use of insulin; Z88.8 Allergy status to other drugs, medicaments and biological substances; Z86.79 Personal history of other diseases of the circulatory system; Z87.891 Personal history of nicotine dependence; Z66 Do not resuscitate; Z80.3 Family history of malignant neoplasm of breast; Z82.49 Family history of ischemic heart disease and other diseases of the circulatory system
CPT/HCPCS: 96372; 96360; 96361; 99285; 36415 ×2; 80053; 83605 ×2; 83735; 84100; 84484; 85025; 85610; 85730; 81003; 71046; 71275; 74174; G0378; J1650; Q9967; 93005

== ENCOUNTER 2019-11-08 07:17 | Emergency (ER) | payer MEDICARE ==
[2019-11-08 07:32] LABS: Glucose,Whole Blood 113 mg/dL (75-99)
[2019-11-08 07:38] VITALS: RESP 18; TEMP 97.8
--- NOTE | 2019-11-08 07:54 | ED ---
General Adult HPI - General Chief complaint: Altered Mental Status Stated complaint: Altered Mental Status Time Seen by Provider: 11/08/19 07:35 Source: patient, EMS, RN notes reviewed, old records reviewed Mode of arrival: EMS Limitations: altered mental status - History of Present Illness Initial comments: This is an 89-year-old male who presents emergency Department with a past medical history significant for diabetes. Patient states he increased his insulin dose to 40 units of Lantus in the morning from 20 about a week ago. Patient states this morning his sugar was 140 and he decided to take 40 even though he thought he should only take 20 he did take the full 40 units. Patient states shortly thereafter started feeling off and and a little confused so he presses emergency button. When EMS arrived the patient had a sugar of 50. Patient has been given some glucose and now is at 113 and has no symptoms. Patient denies any headache patient denies numbness weakness per patient denies any chest pain difficulty breathing shortest breath per patient denies any recent fever chills or cough. Patient denies any abdominal pain patient denies nausea vomiting diarrhea. Patient states normally he eats breakfast right after to Zosyn but today he couldn't get to it right away and he believes that's why his sugar dropped. - Related Data Home Medications Medication Instructions Recorded Confirmed Levothyroxine Sodium [Synthroid] 50 mcg PO DAILY@0600 11/08/13 09/29/19 Simvastatin [Zocor] 20 mg PO HS@2100 11/08/13 09/29/19 Isosorbide Mononitrate ER [Imdur] 30 mg PO DAILY@0600 08/25/18 09/29/19 Omeprazole [PriLOSEC] 40 mg PO DAILY@0600 08/25/18 09/29/19 Aspirin EC [Ecotrin Low Dose] 81 mg PO DAILY@0600 09/29/19 09/29/19 Insulin Glargine,Hum.rec.anlog 20 unit SQ QAM 09/29/19 09/29/19 [Lantus Solostar] Lisinopril [Zestril] 20 mg PO BID@0600,1800 09/29/19 09/29/19 Metoprolol Tartrate [Lopressor] 25 mg PO AC-BID@0600,1800 09/29/19 09/29/19 amLODIPine [Norvasc] 10 mg PO DAILY@0600 09/29/19 09/29/19 Allergies Allergy/AdvReac Type Severity Reaction Status Date / Time lorazepam [From Ativan] AdvReac Hallucinati Verified 11/08/19 08:49 ons Review of Systems ROS Statement: Those systems with pertinent positive or pertinent negative responses have been documented in the HPI. ROS Other: All systems not noted in ROS Statement are negative. Past Medical History Past Medical History: Diabetes Mellitus, GERD/Reflux, Hyperlipidemia, Hypertension, Prostate Disorder, Thyroid Disorder, Vascular Disorder Additional Past Medical History / Comment(s): Aortic aneurysm, arthritis, hypothyroid (goiter), enlarged prostate, current prostate cancer (Dr. Roly ROWELL), retinopathy right eye (Dr. Varela/Jose), eye injection 3x right eye. History of Any Multi-Drug Resistant Organisms: None Reported Additional Past Surgical History / Comment(s): Left knee aspiration d/t swelling, AAA repair, prostate surgery. Past Anesthesia/Blood Transfusion Reactions: No Reported Reaction Past Psychological History: Depression Smoking Status: Former smoker Past Alcohol Use History: Occasional Past Drug Use History: None Reported - Past Family History Mother Family Medical History: Cancer (Breast cancer) Father Family Medical History: Congestive Heart Failure (CHF) General Exam - General Exam Comments Initial Comments: GENERAL: Patient is well-developed and well-nourished. Patient is nontoxic and well- hydrated and is in mild distress. ENT: Neck is soft and supple. No significant lymphadenopathy is noted. Oropharynx is clear. Moist mucous membranes. Neck has full range of motion without eliciting any pain. EYES: The sclera were anicteric and conjunctiva were pink and moist. Extraocular movements were intact and pupils were equal round and reactive to light. Eyelids were unremarkable. PULMONARY: Unlabored respirations. Good breath sounds bilaterally. No audible rales rhon chi or wheezing was noted. CARDIOVASCULAR: There is a regular rate and rhythm without any murmurs gallops or rubs. ABDOMEN: Soft and nontender with normal bowel sounds. SKIN: Skin is clear with no lesions or rashes and otherwise unremarkable. NEUROLOGIC: Patient is alert and oriented x3. Cranial nerves II through XII are grossly intact. Motor and sensory are also intact. Normal speech, volume and content. Symmetrical smile. MUSCULOSKELETAL: Normal extremities with adequate strength and full range of motion. LYMPHATICS: No significant lymphadenopathy is noted PSYCHIATRIC: Normal psychiatric evaluation. Limitations: altered mental status Course Vital Signs 11/08/19 11/08/19 07:32 08:28 Temperature 97.8 F Pulse Rate 52 L 65 Respiratory 18 18 Rate Blood Pressure 167/91 185/94 O2 Sat by Pulse 98 98 Oximetry Medical Decision Making - Medical Decision Making EKG shows sinus bradycardia 54 bpm [place] interval is 352 QRS is 124 QT interval 502 QTC is 476. Patient's EKG shows no ST segment elevation or depression. - Lab Data Result diagrams: 11/08/19 07:40 11/08/19 07:40 Lab Results 11/08/19 11/08/19 11/08/19 Range/Units 07:21 07:40 07:40 WBC 3.8 (3.8-10.6) k/uL RBC 4.44 (4.30-5.90) m/uL Hgb 12.3 L (13.0-17.5) gm/dL Hct 39.4 (39.0-53.0) % MCV 88.8 (80.0-100.0) fL MCH 27.7 (25.0-35.0) pg MCHC 31.2 (31.0-37.0) g/dL RDW 16.2 H (11.5-15.5) % Plt Count 92 L (150-450) k/uL Neutrophils % 75 % Lymphocytes % 14 % Monocytes % 6 % Eosinophils % 5 % Basophils % 0 % Neutrophils # 2.9 (1.3-7.7) k/uL Lymphocytes # 0.5 L (1.0-4.8) k/uL Monocytes # 0.2 (0-1.0) k/uL Eosinophils # 0.2 (0-0.7) k/uL Basophils # 0.0 (0-0.2) k/uL Manual Slide Review Performed Hypochromasia Moderate Anisocytosis Slight Sodium 139 (137-145) mmol/L Potassium 3.2 L (3.5-5.1) mmol/L Chloride 107 (98-107) mmol/L Carbon Dioxide 23 (22-30) mmol/L Anion Gap 9 mmol/L BUN 25 H (9-20) mg/dL Creatinine 0.65 L (0.66-1.25) mg/dL Est GFR (CKD-EPI)AfAm >90 (>60 ml/min/1.73 sqM) Est GFR (CKD-EPI)NonAf 86 (>60 ml/min/1.73 sqM) Glucose 126 H (74-99) mg/dL POC Glucose (mg/dL) 113 H (75-99) mg/dL POC Glu Clinical Audiologist ID Aidee Huston Calcium 9.5 (8.4-10.2) mg/dL Total Bilirubin 0.4 (0.2-1.3) mg/dL AST 17 (17-59) U/L ALT 12 (4-49) U/L Alkaline Phosphatase 49 (38-126) U/L Total Protein 6.6 (6.3-8.2) g/dL Albumin 4.0 (3.5-5.0) g/dL Urine Color Urine Appearance (Clear) Urine pH (5.0-8.0) Ur Specific [place] (1.001-1.035) Urine Protein (Negative) Urine Glucose (UA) (Negative) Urine Ketones (Negative) Urine Blood (Negative) Urine Nitrite (Negative) Urine Bilirubin (Negative) Urine Urobilinogen (<2.0) mg/dL Ur Leukocyte Esterase (Negative) Urine WBC (0-5) /hpf Urine Mucus (None) /hpf 11/08/19 Range/Units 08:25 WBC (3.8-10.6) k/uL RBC (4.30-5.90) m/uL Hgb (13.0-17.5) gm/dL Hct (39.0-53.0) % MCV (80.0-100.0) fL MCH (25.0-35.0) pg MCHC (31.0-37.0) g/dL RDW (11.5-15.5) % Plt Count (150-450) k/uL Neutrophils % % Lymphocytes % % Monocytes % % Eosinophils % % Basophils % % Neutrophils # (1.3-7.7) k/uL Lymphocytes # (1.0-4.8) k/uL Monocytes # (0-1.0) k/uL Eosinophils # (0-0.7) k/uL Basophils # (0-0.2) k/uL Manual Slide Review Hypochromasia Anisocytosis Sodium (137-145) mmol/L Potassium (3.5-5.1) mmol/L Chloride (98-107) mmol/L Carbon Dioxide (22-30) mmol/L Anion Gap mmol/L BUN (9-20) mg/dL Creatinine (0.66-1.25) mg/dL Est GFR (CKD-EPI)AfAm (>60 ml/min/1.73 sqM) Est GFR (CKD-EPI)NonAf (>60 ml/min/1.73 sqM) Glucose (74-99) mg/dL POC Glucose (mg/dL) (75-99) mg/dL POC Glu Clinical Audiologist ID Calcium (8.4-10.2) mg/dL Total Bilirubin (0.2-1.3) mg/dL AST (17-59) U/L ALT (4-49) U/L Alkaline Phosphatase (38-126) U/L Total Protein (6.3-8.2) g/dL Albumin (3.5-5.0) g/dL Urine Color Yellow Urine Appearance Clear (Clear) Urine pH 5.5 (5.0-8.0) Ur Specific [place] 1.019 (1.001-1.035) Urine Protein 2+ H (Negative) Urine Glucose (UA) 2+ H (Negative) Urine Ketones Negative (Negative) Urine Blood Negative (Negative) Urine Nitrite Negative (Negative) Urine Bilirubin Negative (Negative) Urine Urobilinogen <2.0 (<2.0) mg/dL Ur Leukocyte Esterase Negative (Negative) Urine WBC 1 (0-5) /hpf Urine Mucus Occasional H (None) /hpf Disposition Clinical Impression: Hypoglycemia, Hypokalemia Disposition: HOME SELF-CARE Condition: Good Instructions (If sedation given, give patient instructions): Hypoglycemia in a Person with Diabetes (ED) Additional Instructions: Patient is about the primary medical care doctor to discuss when he should reduce his morning insulin. Patient should also eat immediately after taking his insulin. Is patient prescribed a controlled substance at d/c from ED?: No Referrals: Luis Alberto Payne MD [Primary Care Provider] - 1-2 days Time of Disposition: 09:00
[2019-11-08 08:13] LABS: Anisocytosis Slight; Basophils % (A) 0 %; Eosinophils # (A) 0.2 k/uL (0-0.7); Eosinophils % (A) 5 %; HCT 39.4 % (39.0-53.0); HGB 12.3 gm/dL (13.0-17.5); Hypochromasia Moderate; Lymphocytes # (A) 0.5 k/uL (1.0-4.8); Lymphocytes % (A) 14 %; MCH 27.7 pg (25.0-35.0); MCHC 31.2 g/dL (31.0-37.0); MCV 88.8 fL (80.0-100.0); Mean Platelet Volume 8.3; Monocytes # (A) 0.2 k/uL (0-1.0); Monocytes % (A) 6 %; Neutrophils # (A) 2.9 k/uL (1.3-7.7); Neutrophils % (A) 75 %; RBC 4.44 m/uL (4.30-5.90); RDW 16.2 % (11.5-15.5); WBC 3.8 k/uL (3.8-10.6)
[2019-11-08 08:18] LABS: Platelet Count 92 k/uL (150-450)
[2019-11-08 08:32] LABS: ALT 12 U/L (4-49); AST 17 U/L (17-59); African American GFR (CKD) >90 (>60 ml/min/1.73 sqM); Alkaline Phosphatase 49 U/L (38-126); Anion Gap 9 mmol/L; Blood Urea Nitrogen 25 mg/dL (9-20); Calcium 9.5 mg/dL (8.4-10.2); Carbon Dioxide 23 mmol/L (22-30); Chloride 107 mmol/L (98-107); Glucose 126 mg/dL (74-99); Non-African American GFR(CKD) 86 (>60 ml/min/1.73 sqM); Potassium 3.2 mmol/L (3.5-5.1); Sodium 139 mmol/L (137-145); Total Bilirubin 0.4 mg/dL (0.2-1.3); Total Protein 6.6 g/dL (6.3-8.2)
[2019-11-08] MEDS ORDERED: POTASSIUM CHLORIDE ER 20 MEQ TAB.ER PO STA (08:35)
[2019-11-08 08:46] LABS: Appearance,Urine Clear (Clear); Bilirubin,Urine Negative (Negative); Blood,Urine Negative (Negative); Color,Urine Yellow; Glucose,Urine (UA) 2+ (Negative); Ketones,Urine Negative (Negative); Leukocyte Esterase,Urine Negative (Negative); Mucus,Urine Occasional /hpf; Nitrite,Urine Negative (Negative); PH, Urine 5.5 (5.0-8.0); Protein,Urine 2+ (Negative); Specific Gravity,Urine 1.019 (1.001-1.035); Urobilinogen,Urine <2.0 mg/dL (<2.0); WBC,Urine 1 /hpf (0-5)
[2019-11-08 09:20] VITALS: BP 164/87; PULSE 62
== END 2019-11-08 09:16 | disposition home or self-care (01) ==
LOC: EC 07:17
DX: E11.649 Type 2 diabetes mellitus with hypoglycemia without coma (principal); E87.6 Hypokalemia; R00.1 Bradycardia, unspecified; E11.319 Type 2 diabetes mellitus with unspecified diabetic retinopathy without macular edema; I10 Essential (primary) hypertension; K21.9 Gastro-esophageal reflux disease without esophagitis; E78.5 Hyperlipidemia, unspecified; E03.9 Hypothyroidism, unspecified; Z79.82 Long term (current) use of aspirin; Z79.4 Long term (current) use of insulin; Z79.899 Other long term (current) drug therapy; Z88.8 Allergy status to other drugs, medicaments and biological substances; Z87.891 Personal history of nicotine dependence; Z85.46 Personal history of malignant neoplasm of prostate
CPT/HCPCS: 36415; 80053; 81001; 85025; 99285

== ENCOUNTER 2020-06-13 12:10 | Emergency (ER) | payer MEDICARE ==
--- NOTE | 2020-06-13 13:04 | ED ---
General Adult HPI - General Source: patient, EMS, RN notes reviewed Mode of arrival: wheelchair Limitations: no limitations <Carlos Alberto Connelly - Last Filed: 06/13/20 14:31> <Macario Martines - Last Filed: 06/13/20 14:45> - General Chief complaint: Shortness of Breath Stated complaint: Weakness Time Seen by Provider: 06/13/20 12:23 - History of Present Illness Initial comments: This a 89-year-old male presents emergency Department with chief complaint of not feeling well. Patient states that he woke up this morning states he slipped and was very fatigued told staff that he needed help in which she called 911. Patient states he has no real complaint this time he has noticed that he's had a low-grade temp, shortness of breath. Denies any chest pain no headache no dizziness no sick contacts. Patient states he lives at [facility]. Patient denies any nausea vomiting diarrhea constipation. Patient does not provide much information (Carlos Alberto Connelly) - Related Data Home Medications Medication Instructions Recorded Confirmed Levothyroxine Sodium [Synthroid] 50 mcg PO DAILY 11/08/13 06/13/20 Simvastatin [Zocor] 20 mg PO HS 11/08/13 06/13/20 Isosorbide Mononitrate ER [Imdur] 30 mg PO DAILY 08/25/18 06/13/20 Omeprazole [PriLOSEC] 40 mg PO AC-BRKFST 08/25/18 06/13/20 Aspirin EC [Ecotrin Low Dose] 81 mg PO DAILY 09/29/19 06/13/20 Insulin Glargine,Hum.rec.anlog 40 unit SQ QAM 09/29/19 06/13/20 [Lantus Solostar] Metoprolol Tartrate [Lopressor] 25 mg PO BID 09/29/19 06/13/20 amLODIPine [Norvasc] 10 mg PO DAILY 09/29/19 06/13/20 lisinopriL [Zestril] 20 mg PO DAILY 09/29/19 06/13/20 Pioglitazone [Actos] 15 mg PO DAILY 06/13/20 06/13/20 hydrALAZINE HCL [Apresoline] 50 mg PO BID 06/13/20 06/13/20 hydroCHLOROthiazide [Hydrodiuril] 50 mg PO DAILY 06/13/20 06/13/20 Allergies Allergy/AdvReac Type Severity Reaction Status Date / Time lorazepam [From Ativan] AdvReac Hallucinati Verified 06/13/20 13:42 ons Review of Systems ROS Other: All systems not noted in ROS Statement are negative. <Carlos Alberto Connelly - Last Filed: 06/13/20 14:31> ROS Other: All systems not noted in ROS Statement are negative. <Macario Martines - Last Filed: 06/13/20 14:45> ROS Statement: Those systems with pertinent positive or pertinent negative responses have been documented in the HPI. Past Medical History Past Medical History: Diabetes Mellitus, GERD/Reflux, Hyperlipidemia, Hypertension, Prostate Disorder, Thyroid Disorder, Vascular Disorder Additional Past Medical History / Comment(s): Aortic aneurysm, arthritis, hypothyroid (goiter), enlarged prostate, current prostate cancer (Dr. Roly ROWELL), retinopathy right eye (Dr. Varela/Jose), eye injection 3x right eye. History of Any Multi-Drug Resistant Organisms: None Reported Additional Past Surgical History / Comment(s): Left knee aspiration d/t swelling, AAA repair, prostate surgery. Past Anesthesia/Blood Transfusion Reactions: No Reported Reaction Past Psychological History: Depression Smoking Status: Former smoker Past Alcohol Use History: Occasional Past Drug Use History: None Reported - Past Family History Mother Family Medical History: Cancer (Breast cancer) Father Family Medical History: Congestive Heart Failure (CHF) <Carlos Alberto Connelly - Last Filed: 06/13/20 14:31> General Exam Limitations: no limitations General appearance: alert, in no apparent distress Head exam: Present: atraumatic, normocephalic, normal inspection Eye exam: Present: normal appearance, PERRL, EOMI. Absent: scleral icterus, conjunctival injection, periorbital swelling ENT exam: Present: normal exam, normal oropharynx, mucous membranes moist Neck exam: Present: normal inspection, full ROM. Absent: tenderness, meningis mus, lymphadenopathy Respiratory exam: Present: normal lung sounds bilaterally. Absent: respiratory distress, wheezes, rales, rhonchi, stridor Cardiovascular Exam: Present: regular rate, normal rhythm, normal heart sounds. Absent: systolic murmur, diastolic murmur, rubs, gallop, clicks GI/Abdominal exam: Present: soft, normal bowel sounds. Absent: distended, tenderness, guarding, rebound, rigid Neurological exam: Present: alert, oriented X3 Skin exam: Present: warm, dry, intact, normal color. Absent: rash <Carlos Alberto Connelly - Last Filed: 06/13/20 14:31> Course <Macario Martines - Last Filed: 06/13/20 14:45> Vital Signs 06/13/20 06/13/20 06/13/20 12:13 14:20 14:28 Temperature 99.8 F H 99.1 F Pulse Rate 73 75 73 Respiratory 24 18 18 Rate Blood Pressure 155/83 155/81 O2 Sat by Pulse 90 L 96 96 Oximetry - Reevaluation(s) Reevaluation #1: 06/13/20 14:43 PA supervision: I did personally evaluate the patient with a [id number] evaluation 06/13/20 14:44 Patient did present with complaints of not feeling well feeling somewhat fatigued Clinical examination it was for the most part unremarkable. Laboratory work and imaging indicated Covid 19 is a likely etiology. Patient did feel much improved however after a period time CAT scan for PE. He does not want to stay in hospital he was to go home he was given return parameters. He does demonstrate decision making capacity. He is in agreement with discharge and with returning if any problems. (Macario Martines) EKG Findings - EKG Comments: EKG Findings:: EKG performed at 12:21 sinus rhythm with first-degree AV block and incomplete right bundle, rate of 70. KS 352 QRS 106 QTC is QTC 406/4:30 <Carlos Alberto Connelly - Last Filed: 06/13/20 14:31> Medical Decision Making - Lab Data Result diagrams: 06/13/20 12:23 06/13/20 12:23 <Carlos Alberto Connelly - Last Filed: 06/13/20 14:31> - Lab Data Result diagrams: 06/13/20 12:23 06/13/20 12:23 <Macario Martines - Last Filed: 06/13/20 14:45> - Medical Decision Making 89-year-old male presented for generalized fatigue states he was not feeling well this morning but feels greatly improved this time patient is coronavirus positive. Patient states he feels comfortable discharge she'll take [id number] vitamins patient was given strict return parameters. Patient did have an elevated d-dimer CT was obtained which showed some narrowing the lateral portion of his trachea, patient'shad a stress will follow palpation. (Carlos Alberto Connelly) - Lab Data Lab Results 06/13/20 06/13/20 06/13/20 Range/Units 12:23 12:23 12:23 WBC 2.3 L (3.8-10.6) k/uL RBC 4.36 (4.30-5.90) m/uL Hgb 12.7 L (13.0-17.5) gm/dL Hct 38.6 L (39.0-53.0) % MCV 88.5 (80.0-100.0) fL MCH 29.1 (25.0-35.0) pg MCHC 32.9 (31.0-37.0) g/dL RDW 15.0 (11.5-15.5) % Plt Count 108 L (150-450) k/uL MPV 8.7 Neutrophils % 79 % Lymphocytes % 12 % Monocytes % 7 % Eosinophils % 1 % Basophils % 0 % Neutrophils # 1.8 (1.3-7.7) k/uL Lymphocytes # 0.3 L (1.0-4.8) k/uL Monocytes # 0.2 (0-1.0) k/uL Eosinophils # 0.0 (0-0.7) k/uL Basophils # 0.0 (0-0.2) k/uL PT 10.5 (9.0-12.0) sec INR 1.0 (<1.2) APTT 25.4 (22.0-30.0) sec D-Dimer 2.14 H (<0.60) mg/L FEU Sodium 131 L (137-145) mmol/L Potassium 3.6 (3.5-5.1) mmol/L Chloride 98 (98-107) mmol/L Carbon Dioxide 25 (22-30) mmol/L Anion Gap 8 mmol/L BUN 14 (9-20) mg/dL Creatinine 0.77 (0.66-1.25) mg/dL Est GFR (CKD-EPI)AfAm >90 (>60 ml/min/1.73 sqM) Est GFR (CKD-EPI)NonAf 81 (>60 ml/min/1.73 sqM) Glucose 158 H (74-99) mg/dL Plasma Lactic Acid [place] (0.7-2.0) mmol/L Calcium 8.8 (8.4-10.2) mg/dL Magnesium 1.6 (1.6-2.3) mg/dL Total Bilirubin 0.8 (0.2-1.3) mg/dL AST 18 (17-59) U/L ALT 10 (4-49) U/L Alkaline Phosphatase 55 (38-126) U/L Lactate Dehydrogenase 501 (313-618) U/L C-Reactive Protein 42.9 H (<10.0) mg/L Total Protein 6.2 L (6.3-8.2) g/dL Albumin 3.7 (3.5-5.0) g/dL Coronavirus (PCR) (Not Detectd) 06/13/20 06/13/20 Range/Units 12:23 12:40 WBC (3.8-10.6) k/uL RBC (4.30-5.90) m/uL Hgb (13.0-17.5) gm/dL Hct (39.0-53.0) % MCV (80.0-100.0) fL MCH (25.0-35.0) pg MCHC (31.0-37.0) g/dL RDW (11.5-15.5) % Plt Count (150-450) k/uL MPV Neutrophils % % Lymphocytes % % Monocytes % % Eosinophils % % Basophils % % Neutrophils # (1.3-7.7) k/uL Lymphocytes # (1.0-4.8) k/uL Monocytes # (0-1.0) k/uL Eosinophils # (0-0.7) k/uL Basophils # (0-0.2) k/uL PT (9.0-12.0) sec INR (<1.2) APTT (22.0-30.0) sec D-Dimer (<0.60) mg/L FEU Sodium (137-145) mmol/L Potassium (3.5-5.1) mmol/L Chloride (98-107) mmol/L Carbon Dioxide (22-30) mmol/L Anion Gap mmol/L BUN (9-20) mg/dL Creatinine (0.66-1.25) mg/dL Est GFR (CKD-EPI)AfAm (>60 ml/min/1.73 sqM) Est GFR (CKD-EPI)NonAf (>60 ml/min/1.73 sqM) Glucose (74-99) mg/dL Plasma Lactic Acid [place] 1.4 (0.7-2.0) mmol/L Calcium (8.4-10.2) mg/dL Magnesium (1.6-2.3) mg/dL Total Bilirubin (0.2-1.3) mg/dL AST (17-59) U/L ALT (4-49) U/L Alkaline Phosphatase (38-126) U/L Lactate Dehydrogenase (313-618) U/L C-Reactive Protein (<10.0) mg/L Total Protein (6.3-8.2) g/dL Albumin (3.5-5.0) g/dL Coronavirus (PCR) Detected A (Not Detectd) Disposition Is patient prescribed a controlled substance at d/c from ED?: No Time of Disposition: 14:32 <Carlos Alberto Connelly - Last Filed: 06/13/20 14:31> <Macario Martines - Last Filed: 06/13/20 14:45> Clinical Impression: COVID-19 Disposition: HOME SELF-CARE Condition: Stable Instructions (If sedation given, give patient instructions): Upper Respiratory Infection (ED) Additional Instructions: Please return to the Emergency Department if symptoms worsen or any other concerns. Referrals: None,Stated [Primary Care Provider] - 1-2 days Macario Vargas DO [Doctor of Osteopathic Medicine] - 1-2 days
[2020-06-13 13:22] LABS: ALT 10 U/L (4-49); AST 18 U/L (17-59); African American GFR (CKD) >90 (>60 ml/min/1.73 sqM); Albumin 3.7 g/dL (3.5-5.0); Alkaline Phosphatase 55 U/L (38-126); Anion Gap 8 mmol/L; Basophils % (A) 0 %; Blood Urea Nitrogen 14 mg/dL (9-20); C Reactive Protein 42.9 mg/L (<10.0); Calcium 8.8 mg/dL (8.4-10.2); Carbon Dioxide 25 mmol/L (22-30); Chloride 98 mmol/L (98-107); Eosinophils % (A) 1 %; Glucose 158 mg/dL (74-99); HCT 38.6 % (39.0-53.0); HGB 12.7 gm/dL (13.0-17.5); LDH 501 U/L (313-618); Lymphocytes # (A) 0.3 k/uL (1.0-4.8); Lymphocytes % (A) 12 %; MCH 29.1 pg (25.0-35.0); MCHC 32.9 g/dL (31.0-37.0); MCV 88.5 fL (80.0-100.0); Magnesium 1.6 mg/dL (1.6-2.3); Mean Platelet Volume 8.7; Monocytes # (A) 0.2 k/uL (0-1.0); Monocytes % (A) 7 %; Neutrophils # (A) 1.8 k/uL (1.3-7.7); Neutrophils % (A) 79 %; Non-African American GFR(CKD) 81 (>60 ml/min/1.73 sqM); Platelet Count 108 k/uL (150-450); Potassium 3.6 mmol/L (3.5-5.1); RBC 4.36 m/uL (4.30-5.90); Sodium 131 mmol/L (137-145); Total Bilirubin 0.8 mg/dL (0.2-1.3); Total Protein 6.2 g/dL (6.3-8.2); WBC 2.3 k/uL (3.8-10.6)
[2020-06-13 13:24] LABS: Partial Thromboplastin Time 25.4 sec (22.0-30.0); Prothrombin Time 10.5 sec (9.0-12.0)
--- NOTE | 2020-06-13 13:27 | XR ---
EXAMINATION TYPE: XR chest 2V DATE OF EXAM: 06/13/2020 COMPARISON: Chest x-ray September 28, 2019 and older x-rays. CTA chest April 19, 2017. HISTORY: Shortness of breath and weakness for one day. TECHNIQUE: Frontal and lateral views of the chest are obtained. FINDINGS: There is background Chronic emphysematous and pulmonary fibrotic changes bilaterally redem onstrated without suspicious new focal air space opacity, pleural effusion, or pneumothorax seen. Per sistent cardiomegaly with aneurysmal thoracic aorta redemonstrated. The osseous structures remain i ntact. IMPRESSION: Chronic changes without new acute pulmonary process.
[2020-06-13 13:30] LABS: D-Dimer 2.14 mg/L FEU (<0.60)
[2020-06-13 14:20] VITALS: RESP 18
[2020-06-13 14:21] VITALS: TEMP 99.1
--- NOTE | 2020-06-13 14:22 | CT ---
CT CHEST FOR PULMONARY EMBOLISM. EXAMINATION TYPE: CT chest angio for PE DATE OF EXAM: 06/13/2020 INDICATION: SOB CT DLP: 423.8 mGycm, Automated exposure control for dose reduction was used. CONTRAST: Patient injected with 83 mL of Isovue 370. COMPARISON: None TECHNIQUE: CT of the chest is performed on a spiral scan at 2 mm thick sections. Study is performed with intravenous contrast timed for evaluation for pulmonary embolism. This will limit additional po rtions of the evaluation. 3-D MIP images reconstructed by the technologist are reviewed on the compu ter in the coronal and sagittal planes. FINDINGS: No persistent filling defects are evident to suggest an acute pulmonary embolism. No mediastinal or hilar adenopathy enlarged by CT criteria is evident. Few scattered small lymph node s are within the mediastinum. The ascending aorta diameter at the level of the main pulmonary artery is 4.3 cm. The main pulmonary artery diameter at the bifurcation is 4.3 cm. Mild infiltrate is in the posterior right lung. Note is made of a narrowed trachea within the upper thoracic region. Consider saber sheath trachea.. Limited CT section through the upper abdomen. There is a large gallstone present IMPRESSIONS: 1. No acute pulmonary embolism. 2. Focal narrowing in the lateral dimension of the trachea. Consider bronchoscopy for additional eval uation. 3. Cholelithiasis
[2020-06-13 15:34] VITALS: BP 129/71; PULSE 74
[2020-06-13 19:12] LABS: Ferritin 103.2 ng/mL (22.0-322.0)
== END 2020-06-13 15:53 | disposition home or self-care (01) ==
LOC: EC 12:10
DX: U07.1 COVID-19 (principal); R79.89 Other specified abnormal findings of blood chemistry; J39.8 Other specified diseases of upper respiratory tract; K21.9 Gastro-esophageal reflux disease without esophagitis; E78.5 Hyperlipidemia, unspecified; I10 Essential (primary) hypertension; N40.0 Benign prostatic hyperplasia without lower urinary tract symptoms; E07.9 Disorder of thyroid, unspecified; E03.9 Hypothyroidism, unspecified; E11.319 Type 2 diabetes mellitus with unspecified diabetic retinopathy without macular edema; F32.9 Major depressive disorder, single episode, unspecified; C61 Malignant neoplasm of prostate; Z79.4 Long term (current) use of insulin; Z79.82 Long term (current) use of aspirin; Z79.899 Other long term (current) drug therapy; Z79.890 Hormone replacement therapy; Z98.890 Other specified postprocedural states; Z87.891 Personal history of nicotine dependence; Z88.8 Allergy status to other drugs, medicaments and biological substances
CPT/HCPCS: 36415; 93005; 85379; 80053; 82728; 83605; 83615; 83735; 85025; 85610; 85730; 86140; 87040; 84145; 87635; 71046; 71275; 99285; Q9967

== ENCOUNTER 2020-06-16 21:03 | Inpatient (IN) | payer MEDICARE ==
[2020-06-16] MEDS ORDERED: SODIUM CHLORIDE 0.9% 1,000 ML IV STA ×2 (21:10→21:51)
[2020-06-16] MEDS ORDERED: SODIUM CHLORIDE 0.9% 1,000 ML IV ONE (21:10)
--- NOTE | 2020-06-16 21:12 | ED ---
General Adult HPI - General Chief complaint: Altered Mental Status Stated complaint: Altered Mental Status, +COVID Source: patient, EMS, RN notes reviewed Mode of arrival: EMS Limitations: physical limitation - History of Present Illness Initial comments: Patient is a pleasant 89-year-old male presenting to the emergency department by EMS with change in mental status. Patient is at some sort of assisted care facility. Unclear last known well. A clancy has limited ability to communicate at this time and provides limited history. Patient states he does not feel well. Patient is oriented to name. Patient reportedly did test positive for coronary virus however does unclear when. - Related Data Home Medications Medication Instructions Recorded Confirmed Levothyroxine Sodium [Synthroid] 50 mcg PO DAILY 11/08/13 06/16/20 Simvastatin [Zocor] 20 mg PO HS 11/08/13 06/16/20 Isosorbide Mononitrate ER [Imdur] 30 mg PO DAILY 08/25/18 06/16/20 Omeprazole [PriLOSEC] 40 mg PO AC-BRKFST 08/25/18 06/16/20 Aspirin EC [Ecotrin Low Dose] 81 mg PO DAILY 09/29/19 06/16/20 Insulin Glargine,Hum.rec.anlog 40 unit SQ QAM 09/29/19 06/16/20 [Lantus Solostar] Metoprolol Tartrate [Lopressor] 25 mg PO BID 09/29/19 06/16/20 amLODIPine [Norvasc] 10 mg PO DAILY 09/29/19 06/16/20 lisinopriL [Zestril] 20 mg PO DAILY 09/29/19 06/16/20 Pioglitazone [Actos] 15 mg PO DAILY 06/13/20 06/16/20 hydrALAZINE HCL [Apresoline] 50 mg PO BID 06/13/20 06/16/20 hydroCHLOROthiazide [Hydrodiuril] 50 mg PO DAILY 06/13/20 06/16/20 Allergies Allergy/AdvReac Type Severity Reaction Status Date / Time lorazepam [From Ativan] AdvReac Hallucinati Verified 06/16/20 21:39 ons Review of Systems ROS Statement: Those systems with pertinent positive or pertinent negative responses have been documented in the HPI. ROS Other: All systems not noted in ROS Statement are negative. Limitations: ROS unobtainable due to patients medical condition Past Medical History Past Medical History: Diabetes Mellitus, GERD/Reflux, Hyperlipidemia, Hypertension, Prostate Disorder, Thyroid Disorder, Vascular Disorder Additional Past Medical History / Comment(s): Aortic aneurysm, arthritis, hypothyroid (goiter), enlarged prostate, current prostate cancer (Dr. Roly ROWELL), retinopathy right eye (Dr. Varela/Jose), eye injection 3x right eye. History of Any Multi-Drug Resistant Organisms: None Reported Additional Past Surgical History / Comment(s): Left knee aspiration d/t swelling, AAA repair, prostate surgery. Past Anesthesia/Blood Transfusion Reactions: No Reported Reaction Past Psychological History: Depression Smoking Status: Former smoker Past Alcohol Use History: Occasional Past Drug Use History: None Reported - Past Family History Mother Family Medical History: Cancer (Breast cancer) Father Family Medical History: Congestive Heart Failure (CHF) General Exam Limitations: altered mental status, physical limitation General appearance: other (Drowsy. Opens eyes to voice) Head exam: Present: atraumatic, normocephalic Eye exam: Present: normal appearance ENT exam: Present: normal oropharynx Neck exam: Present: normal inspection Respiratory exam: Present: normal lung sounds bilaterally Cardiovascular Exam: Present: regular rate, normal rhythm Expanded Peripheral pulses: 1+: Radial (R), Radial (L), Dorsalis Pedis (R), Dorsalis Pedis (L) GI/Abdominal exam: Present: soft. Absent: tenderness Extremities exam: Present: normal inspection Neurological exam: Present: alert Expanded Neurological exam: Present: protecting the airway Patient oriented to: Present: person. Absent: place, time Cranial nerves: EOM's Intact: Normal Motor strength exam: RUE: 4, LUE: 4, RLE: 4, LLE: 4 Eye Response: (3) open to voice Motor Response: (6) obeys commands Verbal Response: (4) confused conversation Psychiatric exam: Present: flat affect Skin exam: Present: normal color Course Vital Signs 06/16/20 06/16/20 06/16/20 21:05 21:17 21:46 Temperature Pulse Rate 65 62 63 Respiratory 15 18 Rate Blood Pressure 86/61 90/61 95/56 O2 Sat by Pulse 86 L 100 100 Oximetry 06/16/20 22:09 Temperature 97.3 F L Pulse Rate 63 Respiratory 18 Rate Blood Pressure 104/56 O2 Sat by Pulse 98 Oximetry - Reevaluation(s) Reevaluation #1: 06/16/20 21:10 Nursing staff did speak with family who states patient is DO NOT RESUSCITATE. They do not want aggressive treatment. 06/16/20 21:50 A aston has ideal body weight of 81 kg. Fluid bolus of 30 mL/kg will be ordered. 06/16/20 22:20 Case was discussed with Dr. jose, who will admit covered hospital call EKG Findings - EKG Comments: EKG Findings:: Sinus rhythm at 64. First-degree AV block CA of 396. QRS 116. QT 470. QTc 493. Superior axis. Septal and inferior Q waves. No acute ST change Medical Decision Making - Medical Decision Making Patient reevaluated and updated. Patient is significantly improved. Patient is alert and oriented 3. - Lab Data Result diagrams: 06/16/20 21:20 06/16/20 21:21 Lab Results 06/16/20 06/16/20 06/16/20 Range/Units 21:20 21:20 21:20 WBC 4.3 (3.8-10.6) k/uL RBC 4.38 (4.30-5.90) m/uL Hgb 12.8 L (13.0-17.5) gm/dL Hct 39.3 (39.0-53.0) % MCV 89.8 (80.0-100.0) fL MCH 29.3 (25.0-35.0) pg MCHC 32.6 (31.0-37.0) g/dL RDW 14.6 (11.5-15.5) % Plt Count 111 L (150-450) k/uL MPV 8.5 Neutrophils % 80 % Lymphocytes % 12 % Monocytes % 4 % Eosinophils % 1 % Basophils % 1 % Neutrophils # 3.5 (1.3-7.7) k/uL Lymphocytes # 0.5 L (1.0-4.8) k/uL Monocytes # 0.2 (0-1.0) k/uL Eosinophils # 0.1 (0-0.7) k/uL Basophils # 0.0 (0-0.2) k/uL PT 10.7 (9.0-12.0) sec INR 1.0 (<1.2) APTT 22.4 (22.0-30.0) sec Sodium (137-145) mmol/L Potassium (3.5-5.1) mmol/L Chloride (98-107) mmol/L Carbon Dioxide (22-30) mmol/L Anion Gap mmol/L BUN (9-20) mg/dL Creatinine (0.66-1.25) mg/dL Est GFR (CKD-EPI)AfAm (>60 ml/min/1.73 sqM) Est GFR (CKD-EPI)NonAf (>60 ml/min/1.73 sqM) Glucose (74-99) mg/dL POC Glucose (mg/dL) (75-99) mg/dL POC Glu Hand Stonecutter ID Plasma Lactic Acid [place] (0.7-2.0) mmol/L Calcium (8.4-10.2) mg/dL Magnesium (1.6-2.3) mg/dL Total Bilirubin (0.2-1.3) mg/dL AST (17-59) U/L ALT (4-49) U/L Alkaline Phosphatase (38-126) U/L Lactate Dehydrogenase (313-618) U/L Creatine Kinase (55-170) U/L Troponin I 0.020 (0.000-0.034) ng/mL C-Reactive Protein (<10.0) mg/L Total Protein (6.3-8.2) g/dL Albumin (3.5-5.0) g/dL Urine Color Urine Appearance (Clear) Urine pH (5.0-8.0) Ur Specific [place] (1.001-1.035) Urine Protein (Negative) Urine Glucose (UA) (Negative) Urine Ketones (Negative) Urine Blood (Negative) Urine Nitrite (Negative) Urine Bilirubin (Negative) Urine Urobilinogen (<2.0) mg/dL Ur Leukocyte Esterase (Negative) Urine RBC (0-5) /hpf Urine WBC (0-5) /hpf Amorphous Sediment (None) /hpf Urine Bacteria (None) /hpf Hyaline Casts (0-2) /lpf Urine Mucus (None) /hpf Urine Opiates Screen (NotDetected) Ur Oxycodone Screen (NotDetected) Urine Methadone Screen (NotDetected) Ur Propoxyphene Screen (NotDetected) Ur Barbiturates Screen (NotDetected) U Tricyclic Antidepress (NotDetected) Ur Phencyclidine Scrn (NotDetected) Ur Amphetamines Screen (NotDetected) U Methamphetamines Scrn (NotDetected) U Benzodiazepines Scrn (NotDetected) Urine Cocaine Screen (NotDetected) U Marijuana (THC) Screen (NotDetected) 06/16/20 06/16/20 06/16/20 Range/Units 21:20 21:21 21:21 WBC (3.8-10.6) k/uL RBC (4.30-5.90) m/uL Hgb (13.0-17.5) gm/dL Hct (39.0-53.0) % MCV (80.0-100.0) fL MCH (25.0-35.0) pg MCHC (31.0-37.0) g/dL RDW (11.5-15.5) % Plt Count (150-450) k/uL MPV Neutrophils % % Lymphocytes % % Monocytes % % Eosinophils % % Basophils % % Neutrophils # (1.3-7.7) k/uL Lymphocytes # (1.0-4.8) k/uL Monocytes # (0-1.0) k/uL Eosinophils # (0-0.7) k/uL Basophils # (0-0.2) k/uL PT (9.0-12.0) sec INR (<1.2) APTT (22.0-30.0) sec Sodium 130 L (137-145) mmol/L Potassium 3.6 (3.5-5.1) mmol/L Chloride 96 L (98-107) mmol/L Carbon Dioxide 20 L (22-30) mmol/L Anion Gap 14 mmol/L BUN 19 (9-20) mg/dL Creatinine 1.40 H (0.66-1.25) mg/dL Est GFR (CKD-EPI)AfAm 51 (>60 ml/min/1.73 sqM) Est GFR (CKD-EPI)NonAf 44 (>60 ml/min/1.73 sqM) Glucose 178 H (74-99) mg/dL POC Glucose (mg/dL) (75-99) mg/dL POC Glu Hand Stonecutter ID Plasma Lactic Acid [place] 4.3 H* (0.7-2.0) mmol/L Calcium 9.1 (8.4-10.2) mg/dL Magnesium 1.9 (1.6-2.3) mg/dL Total Bilirubin 0.9 (0.2-1.3) mg/dL AST 22 (17-59) U/L ALT 8 (4-49) U/L Alkaline Phosphatase 54 (38-126) U/L Lactate Dehydrogenase 653 H (313-618) U/L Creatine Kinase 102 (55-170) U/L Troponin I (0.000-0.034) ng/mL C-Reactive Protein 49.6 H (<10.0) mg/L Total Protein 6.1 L (6.3-8.2) g/dL Albumin 3.6 (3.5-5.0) g/dL Urine Color Urine Appearance (Clear) Urine pH (5.0-8.0) Ur Specific [place] (1.001-1.035) Urine Protein (Negative) Urine Glucose (UA) (Negative) Urine Ketones (Negative) Urine Blood (Negative) Urine Nitrite (Negative) Urine Bilirubin (Negative) Urine Urobilinogen (<2.0) mg/dL Ur Leukocyte Esterase (Negative) Urine RBC (0-5) /hpf Urine WBC (0-5) /hpf Amorphous Sediment (None) /hpf Urine Bacteria (None) /hpf Hyaline Casts (0-2) /lpf Urine Mucus (None) /hpf Urine Opiates Screen (NotDetected) Ur Oxycodone Screen (NotDetected) Urine Methadone Screen (NotDetected) Ur Propoxyphene Screen (NotDetected) Ur Barbiturates Screen (NotDetected) U Tricyclic Antidepress (NotDetected) Ur Phencyclidine Scrn (NotDetected) Ur Amphetamines Screen (NotDetected) U Methamphetamines Scrn (NotDetected) U Benzodiazepines Scrn (NotDetected) Urine Cocaine Screen (NotDetected) U Marijuana (THC) Screen (NotDetected) 06/16/20 06/16/20 Range/Units 21:23 21:40 WBC (3.8-10.6) k/uL RBC (4.30-5.90) m/uL Hgb (13.0-17.5) gm/dL Hct (39.0-53.0) % MCV (80.0-100.0) fL MCH (25.0-35.0) pg MCHC (31.0-37.0) g/dL RDW (11.5-15.5) % Plt Count (150-450) k/uL MPV Neutrophils % % Lymphocytes % % Monocytes % % Eosinophils % % Basophils % % Neutrophils # (1.3-7.7) k/uL Lymphocytes # (1.0-4.8) k/uL Monocytes # (0-1.0) k/uL Eosinophils # (0-0.7) k/uL Basophils # (0-0.2) k/uL PT (9.0-12.0) sec INR (<1.2) APTT (22.0-30.0) sec Sodium (137-145) mmol/L Potassium (3.5-5.1) mmol/L Chloride (98-107) mmol/L Carbon Dioxide (22-30) mmol/L Anion Gap mmol/L BUN (9-20) mg/dL Creatinine (0.66-1.25) mg/dL Est GFR (CKD-EPI)AfAm (>60 ml/min/1.73 sqM) Est GFR (CKD-EPI)NonAf (>60 ml/min/1.73 sqM) Glucose (74-99) mg/dL POC Glucose (mg/dL) 191 H (75-99) mg/dL POC Glu Hand Stonecutter ID Kristel Corado Plasma Lactic Acid [place] (0.7-2.0) mmol/L Calcium (8.4-10.2) mg/dL Magnesium (1.6-2.3) mg/dL Total Bilirubin (0.2-1.3) mg/dL AST (17-59) U/L ALT (4-49) U/L Alkaline Phosphatase (38-126) U/L Lactate Dehydrogenase (313-618) U/L Creatine Kinase (55-170) U/L Troponin I (0.000-0.034) ng/mL C-Reactive Protein (<10.0) mg/L Total Protein (6.3-8.2) g/dL Albumin (3.5-5.0) g/dL Urine Color Yellow Urine Appearance Clear (Clear) Urine pH 6.0 (5.0-8.0) Ur Specific [place] 1.025 (1.001-1.035) Urine Protein 1+ H (Negative) Urine Glucose (UA) Negative (Negative) Urine Ketones Negative (Negative) Urine Blood Negative (Negative) Urine Nitrite Negative (Negative) Urine Bilirubin Negative (Negative) Urine Urobilinogen <2.0 (<2.0) mg/dL Ur Leukocyte Esterase Negative (Negative) Urine RBC <1 (0-5) /hpf Urine WBC 1 (0-5) /hpf Amorphous Sediment Rare H (None) /hpf Urine Bacteria Rare H (None) /hpf Hyaline Casts 14 H (0-2) /lpf Urine Mucus Rare H (None) /hpf Urine Opiates Screen Not Detected (NotDetected) Ur Oxycodone Screen Not Detected (NotDetected) Urine Methadone Screen Not Detected (NotDetected) Ur Propoxyphene Screen Not Detected (NotDetected) Ur Barbiturates Screen Not Detected (NotDetected) U Tricyclic Antidepress Not Detected (NotDetected) Ur Phencyclidine Scrn Not Detected (NotDetected) Ur Amphetamines Screen Not Detected (NotDetected) U Methamphetamines Scrn Not Detected (NotDetected) U Benzodiazepines Scrn Not Detected (NotDetected) Urine Cocaine Screen Not Detected (NotDetected) U Marijuana (THC) Screen Not Detected (NotDetected) - Radiology Data Radiology results: report reviewed (Computed tomography scan of the brain shows atrophy), image reviewed (Chest x-ray shows pulmonary fibrotic changes. Lung markings slightly increase compared to previous. Arythematous aorta.) Disposition Clinical Impression: Altered mental status, COVID-19 Disposition: ADMITTED IP TO THIS [facility] Condition: Serious Is patient prescribed a controlled substance at d/c from ED?: No Referrals: Barbara Lopez NPC [Primary Care Provider] - 1-2 days Decision Time: 22:21
[2020-06-16 21:24] LABS: Glucose,Whole Blood 191 mg/dL (75-99)
[2020-06-16 21:31] LABS: Basophils % (A) 1 %; Eosinophils # (A) 0.1 k/uL (0-0.7); Eosinophils % (A) 1 %; HCT 39.3 % (39.0-53.0); HGB 12.8 gm/dL (13.0-17.5); Lymphocytes # (A) 0.5 k/uL (1.0-4.8); Lymphocytes % (A) 12 %; MCH 29.3 pg (25.0-35.0); MCHC 32.6 g/dL (31.0-37.0); MCV 89.8 fL (80.0-100.0); Mean Platelet Volume 8.5; Monocytes # (A) 0.2 k/uL (0-1.0); Monocytes % (A) 4 %; Neutrophils # (A) 3.5 k/uL (1.3-7.7); Neutrophils % (A) 80 %; Platelet Count 111 k/uL (150-450); RBC 4.38 m/uL (4.30-5.90); RDW 14.6 % (11.5-15.5); WBC 4.3 k/uL (3.8-10.6)
[2020-06-16 21:44] LABS: Partial Thromboplastin Time 22.4 sec (22.0-30.0); Prothrombin Time 10.7 sec (9.0-12.0)
[2020-06-16 21:45] LABS: Albumin 3.6 g/dL (3.5-5.0); C Reactive Protein 49.6 mg/L (<10.0); Calcium 9.1 mg/dL (8.4-10.2); Magnesium 1.9 mg/dL (1.6-2.3); Potassium 3.6 mmol/L (3.5-5.1); Total Bilirubin 0.9 mg/dL (0.2-1.3); Total Protein 6.1 g/dL (6.3-8.2)
[2020-06-16] MEDS ORDERED: SODIUM CHLORIDE 0.9% 500 ML 500 ML IV STA (21:51)
--- NOTE | 2020-06-16 22:16 | XR ---
EXAMINATION TYPE: XR chest 1V portable DATE OF EXAM: 06/16/2020 COMPARISON: 06/13/2020 HISTORY: Short of breath TECHNIQUE: Single view FINDINGS: Heart is top normal in size. Lungs are clear of consolidation. There is some coarsening of interstitial markings. There are chest leads. Costophrenic angles are clear. There are no hilar gilmer s. Thoracic aorta shows tortuosity. There are chest leads. IMPRESSION: Atheromatous aorta. Pulmonary fibrotic changes. Lung markings increased slightly compared to recent exam. No obvious heart failure.
[2020-06-16 22:50] LABS: Amorphous Sediment,Urine Rare /hpf; Appearance,Urine Clear (Clear); Bacteria,Urine Rare /hpf; Bilirubin,Urine Negative (Negative); Blood,Urine Negative (Negative); Color,Urine Yellow; Glucose,Urine (UA) Negative (Negative); Hyaline Casts,Urine 14 /lpf (0-2); Ketones,Urine Negative (Negative); Leukocyte Esterase,Urine Negative (Negative); Mucus,Urine Rare /hpf; Nitrite,Urine Negative (Negative); Protein,Urine 1+ (Negative); RBC,Urine <1 /hpf (0-5); Specific Gravity,Urine 1.025 (1.001-1.035); Urobilinogen,Urine <2.0 mg/dL (<2.0); WBC,Urine 1 /hpf (0-5)
[2020-06-16] MEDS ORDERED: NALOXONE 0.4 MG/ML 1 ML VIAL IV PRN (22:52)
[2020-06-16] MEDS ORDERED: ACETAMINOPHEN TAB 325 MG TAB PO PRN (22:52)
--- NOTE | 2020-06-16 22:56 | CT ---
EXAMINATION TYPE: CT brain wo con DATE OF EXAM: 06/16/2020 COMPARISON: 03/05/2018 HISTORY: ALTERED MENTAL STATUS COVID CT DLP: 1131.4 mGycm Automated exposure control for dose reduction was used. There is cerebral cortical atrophy. There is hypodensity in the periventricular white matter. There i s no mass effect nor midline shift. There is no sign of intracranial hemorrhage. 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 Skull base is intact. Calvarium is intac t. There is some mucosal thickening in the maxillary and ethmoid sinuses. IMPRESSION: Cerebral atrophy and chronic small vessel ischemia. No acute intracranial abnormality. Brain unchange d compared to old exam. There is some sinusitis that is increased compared to old exam.
[2020-06-16 22:58] LABS: Amphetamine Screen,Urine Not Detected (NotDetected); Barbiturate Screen,Urine Not Detected (NotDetected); Benzodiazepines Screen,Urine Not Detected (NotDetected); Cocaine Screen,Urine Not Detected (NotDetected); Methadone Screen, Urine Not Detected (NotDetected); Opiate Screen,Urine Not Detected (NotDetected); Oxycodone Screen, Urine Not Detected (NotDetected); Phencyclidine Screen,Urine Not Detected (NotDetected); Tricyclic Antidepressant,Urine Not Detected (NotDetected); Urn Cannabinoid Scrn Not Detected (NotDetected)
[2020-06-16] MEDS ORDERED: ENOXAPARIN 40 MG/0.4 ML SYRINGE SQ SCH (23:00)
[2020-06-16] MEDS: dexAMETHasone 2 MG TAB PO SCH (23:11)
[2020-06-16] MEDS: CHOLECALCIFEROL 1,000 UNIT TAB PO SCH (23:11)
[2020-06-16] MEDS: ASCORBIC ACID 500 MG TAB PO SCH (23:11)
[2020-06-16] MEDS: ZINC SULFATE 220 MG CAP PO SCH (23:11)
[2020-06-16] MEDS: SODIUM CHLORIDE 0.9% 1,000 ML IV SCH (23:16)
--- NOTE | 2020-06-17 01:01 | P.HPIM ---
History of Present Illness H&P Date: 06/17/20 The patient is an 89-year-old male with a PMH of type II DM, hypertension, hyperlipidemia, hypothyroidism, and recently diagnosed COVID-19 (06/13) who was sent to the emergency room from home for altered mentation. The patient was lethargic during the interview and otherwise she was limited. As per the ED staff, EMS was activated by home health worker and upon arrival, the patient was noted to be difficult to arouse. As per the ED RN, the patient had improved significantly by the time of my evaluation. He was answering basic questions and noted that he feels tired though denied any active complaints. He denied chest pain, shortness of breath, fever, chills, headache, nausea, vomiting. Of note, the patient had presented on 06/13 to the emergency room with complaints of shortness of breath and a low-grade temperature and subsequently tested positive for rotavirus. He was was discharged home at that point. During this presentation, he underwent an extensive evaluation in the emergency room with lactic acid 4.3, CRP 49.6, LDH 653, platelet count 111, urine toxicology unremarkable, sodium 1:30, chloride 96, CO2 20, creatinine 1.4 (up from baseline of 0.7) with chest x-ray showing increased lung markings. Brain CT revealed no acute abnormalities. EKG reveals sinus rhythm with first-degree AV block at 64 bpm with a right bundle owen block. Review of Systems Pertinent positives and negatives as discussed in HPI, a complete review of systems was performed and all other systems are negative. Past Medical History Past Medical History: Diabetes Mellitus, GERD/Reflux, Hyperlipidemia, Hypertension, Prostate Disorder, Thyroid Disorder, Vascular Disorder Additional Past Medical History / Comment(s): Aortic aneurysm, arthritis, hypothyroid (goiter), enlarged prostate, current prostate cancer (Dr. Roly ROWELL), retinopathy right eye (Dr. Varela/Jose), eye injection 3x right eye. History of Any Multi-Drug Resistant Organisms: None Reported Additional Past Surgical History / Comment(s): Left knee aspiration d/t swelling, AAA repair, prostate surgery. Past Anesthesia/Blood Transfusion Reactions: No Reported Reaction Past Psychological History: Depression Smoking Status: Former smoker Past Alcohol Use History: Occasional Past Drug Use History: None Reported - Past Family History Mother Family Medical History: Cancer (Breast cancer) Father Family Medical History: Congestive Heart Failure (CHF) Medications and Allergies Home Medications Medication Instructions Recorded Confirmed Type Levothyroxine Sodium [Synthroid] 50 mcg PO DAILY 11/08/13 06/16/20 History Simvastatin [Zocor] 20 mg PO HS 11/08/13 06/16/20 History Isosorbide Mononitrate ER [Imdur] 30 mg PO DAILY 08/25/18 06/16/20 History Omeprazole [PriLOSEC] 40 mg PO AC-BRKFST 08/25/18 06/16/20 History Aspirin EC [Ecotrin Low Dose] 81 mg PO DAILY 09/29/19 06/16/20 History Insulin Glargine,Hum.rec.anlog 40 unit SQ QAM 09/29/19 06/16/20 History [Lantus Solostar] Metoprolol Tartrate [Lopressor] 25 mg PO BID 09/29/19 06/16/20 History amLODIPine [Norvasc] 10 mg PO DAILY 09/29/19 06/16/20 History lisinopriL [Zestril] 20 mg PO DAILY 09/29/19 06/16/20 History Pioglitazone [Actos] 15 mg PO DAILY 06/13/20 06/16/20 History hydrALAZINE HCL [Apresoline] 50 mg PO BID 06/13/20 06/16/20 History hydroCHLOROthiazide [Hydrodiuril] 50 mg PO DAILY 06/13/20 06/16/20 History Allergies Allergy/AdvReac Type Severity Reaction Status Date / Time lorazepam [From Ativan] AdvReac Hallucinati Verified 06/16/20 21:39 ons Physical Exam Vitals: Vital Signs Temp Pulse Resp BP Pulse Ox 06/17/20 00:00 54 L 14 102/61 94 L 06/16/20 23:15 65 16 97/51 93 L 06/16/20 22:59 57 L 18 97/52 94 L 06/16/20 22:09 97.3 F L 63 18 104/56 98 06/16/20 21:46 63 18 95/56 100 06/16/20 21:17 62 90/61 100 06/16/20 21:05 65 15 86/61 86 L Intake and Output 06/16/20 06/16/20 06/17/20 14:59 22:59 06:59 Other: Weight 90.718 kg General: Lethargic male, in no acute distress, appears at stated age, normal weight Derm: no unusual rashes/lesions no unusual ecchymoses, warm, dry Head: atraumatic, normocephalic, symmetric Eyes: EOMI, no lid lag, anicteric sclera, pupils equal round reactive to light ENT: Nose and ears atraumatic, no thrush, no pharyngeal erythema Neck: No thyromegaly, no cervical lymphadenopathy, trachea midline, supple Mouth: no lip lesion, mucus membranes moist Cardiovascular: S1S2 reg, no murmur, positive posterior tibial pulse bilateral, no edema, capillary refill less than 2 seconds Lungs: CTA bilateral, no rhonchi, no rales , no accessory muscle use Abdominal: soft, nontender to palpation, no guarding, no appreciable organomegaly, normal bowel sounds Ext: no gross muscle atrophy, muscle strength 4 out of 5 in all 4 extremities grossly, no contractures, Neuro: CN II-XI grossly intact, no focal neuro deficits noted Psych: Lethargic, answering cautions appropriately, oriented to person and chago ce, oriented to year but not to month Results CBC & Chem 7: 06/16/20 21:20 06/16/20 21:21 Labs: Abnormal Lab Results - Last 24 Hours (Table) 06/16/20 06/16/20 06/16/20 Range/Units 21:20 21:20 21:21 Hgb 12.8 L (13.0-17.5) gm/dL Plt Count 111 L (150-450) k/uL Lymphocytes # 0.5 L (1.0-4.8) k/uL Sodium 130 L (137-145) mmol/L Chloride 96 L (98-107) mmol/L Carbon Dioxide 20 L (22-30) mmol/L Creatinine 1.40 H (0.66-1.25) mg/dL Glucose 178 H (74-99) mg/dL POC Glucose (mg/dL) (75-99) mg/dL Plasma Lactic Acid [place] 4.3 H* (0.7-2.0) mmol/L Lactate Dehydrogenase 653 H (313-618) U/L C-Reactive Protein 49.6 H (<10.0) mg/L Total Protein 6.1 L (6.3-8.2) g/dL Urine Protein (Negative) Amorphous Sediment (None) /hpf Urine Bacteria (None) /hpf Hyaline Casts (0-2) /lpf Urine Mucus (None) /hpf 06/16/20 06/16/20 06/16/20 Range/Units 21:23 21:40 23:54 Hgb (13.0-17.5) gm/dL Plt Count (150-450) k/uL Lymphocytes # (1.0-4.8) k/uL Sodium (137-145) mmol/L Chloride (98-107) mmol/L Carbon Dioxide (22-30) mmol/L Creatinine (0.66-1.25) mg/dL Glucose (74-99) mg/dL POC Glucose (mg/dL) 191 H (75-99) mg/dL Plasma Lactic Acid [place] 3.5 H* (0.7-2.0) mmol/L Lactate Dehydrogenase (313-618) U/L C-Reactive Protein (<10.0) mg/L Total Protein (6.3-8.2) g/dL Urine Protein 1+ H (Negative) Amorphous Sediment Rare H (None) /hpf Urine Bacteria Rare H (None) /hpf Hyaline Casts 14 H (0-2) /lpf Urine Mucus Rare H (None) /hpf Assessment and Plan Plan: COVID-19 pneumonitis -Dexamethasone, vitamin C, zinc, vitamin D -Monitor inflammatory markers -Check pro calcitonin levels Altered mentation, likely metabolic encephalopathy in setting of viral pneumonia -Neurochecks -No focal deficits noted on exam LIZBETH -Continue with IV hydration -Monitor BMP Lactic acidosis -Continue with IV fluids and monitored resolution Thrombocytopenia, similar to baseline -Monitor for now Chronic conditions: Hypertension, hyperlipidemia, type II DM, hypothyroidism -Hold antihypertensives -Continue with remaining home medications -Check A1c -Levemir 20 units every morning. Hold oral hypoglycemics. Lispro insulin sliding scale with blood glucose monitoring DVT prophylaxis -Lovenox The patient is admitted with an anticipated greater than 2 midnight stay for evaluation of AMS CODE STATUS: No Code Discussed with: Patient, RN Anticipated discharge date: 3-[address]: Home A total of 40 minutes was spent on the care of this complex patient more than 50% of the time was spent in counseling and care coordination.
[2020-06-17 03:09] LABS: Basophils % (A) 0 %; Eosinophils # (A) 0.1 k/uL (0-0.7); Eosinophils % (A) 2 %; HGB 11.8 gm/dL (13.0-17.5); Lymphocytes # (A) 0.3 k/uL (1.0-4.8); Lymphocytes % (A) 5 %; MCH 28.8 pg (25.0-35.0); MCHC 31.9 g/dL (31.0-37.0); MCV 90.4 fL (80.0-100.0); Monocytes # (A) 0.1 k/uL (0-1.0); Monocytes % (A) 2 %; Neutrophils # (A) 4.7 k/uL (1.3-7.7); Neutrophils % (A) 90 %; Platelet Count 100 k/uL (150-450); RBC 4.09 m/uL (4.30-5.90); WBC 5.3 k/uL (3.8-10.6)
[2020-06-17 03:20] LABS: Albumin 3.3 g/dL (3.5-5.0); Calcium 8.8 mg/dL (8.4-10.2); Potassium 3.4 mmol/L (3.5-5.1); Total Bilirubin 0.8 mg/dL (0.2-1.3); Total Protein 5.9 g/dL (6.3-8.2)
[2020-06-17 04:24] LABS: Ferritin 179.7 ng/mL (22.0-322.0)
[2020-06-17 07:37] LABS: Glucose,Whole Blood 183 mg/dL (75-99)
[2020-06-17] MEDS: LEVOTHYROXINE 50 MCG TAB PO SCH (07:41)
[2020-06-17] MEDS: ENOXAPARIN 40 MG/0.4 ML SYRINGE SQ SCH (07:42)
[2020-06-17] MEDS: CHOLECALCIFEROL 1,000 UNIT TAB PO SCH (07:42)
[2020-06-17] MEDS: ZINC SULFATE 220 MG CAP PO SCH (07:42)
[2020-06-17] MEDS: dexAMETHasone 2 MG TAB PO SCH (07:43)
[2020-06-17] MEDS: INSULIN DETEMIR (LEVEMIR) 100 UNIT/ML SYR SQ SCH (07:43)
[2020-06-17] MEDS: INSULIN ASPART (NovoLOG) 100 UNIT/ML VIAL SQ SCH ×4 (07:43→20:23)
[2020-06-17] MEDS: ASCORBIC ACID 500 MG TAB PO SCH ×2 (07:43→20:06)
[2020-06-17] MEDS: ASPIRIN 81 MG PO SCH (07:43)
[2020-06-17 11:46] LABS: Glucose,Whole Blood 240 mg/dL (75-99)
[2020-06-17] MEDS: SODIUM CHLORIDE 0.9% 1,000 ML IV SCH (12:13)
[2020-06-17 14:57] LABS: Hemoglobin A1C 9.1 % (4.0-6.0)
[2020-06-17 17:00] LABS: Glucose,Whole Blood 236 mg/dL (75-99)
[2020-06-17] MEDS ORDERED: POTASSIUM CHLORIDE ER 20 MEQ TAB.ER PO STA (17:15)
--- NOTE | 2020-06-17 17:35 | P.PN ---
Subjective Progress Note Date: 06/17/20 Patient was seen and evaluated by me today. He is awake, alert, and oriented 3. He does not have any complaints. He denies any nausea or vomiting. No shortness of breath. Objective - Vital Signs Vital signs: Vital Signs Temp 97.6 F 06/17/20 14:00 Pulse 70 06/17/20 14:00 Resp 22 06/17/20 14:00 BP 137/73 06/17/20 14:00 Pulse Ox 93 L 06/17/20 14:00 Intake & Output 06/16/20 06/17/20 06/17/20 18:59 06:59 18:59 Output Total 500 Balance -500 Weight 90.718 kg Output: Urine 500 Other: Voiding Method Indwelling Catheter - Exam General: The patient is awake and alert, in no distress Eye: there is normal conjunctiva bilaterally. Neck: The neck is supple, there is no JVD. Cardiovascular: Normal S1-S2, no S3-S4, no murmurs. Respiratory: Lungs clear to auscultation bilaterally Gastrointestinal: Abdomen is soft, nontender Musculoskeletal: There is no pedal edema. Neurological:. Speech is normal. Skin: Skin is warm and dry - Labs CBC & Chem 7: 06/17/20 02:58 06/17/20 02:58 Labs: Abnormal Lab Results - Last 24 Hours (Table) 06/16/20 06/16/20 06/16/20 Range/Units 21:11 21:20 21:20 RBC (4.30-5.90) m/uL Hgb 12.8 L (13.0-17.5) gm/dL Hct (39.0-53.0) % Plt Count 111 L (150-450) k/uL Lymphocytes # 0.5 L (1.0-4.8) k/uL Sodium (137-145) mmol/L Potassium (3.5-5.1) mmol/L Chloride (98-107) mmol/L Carbon Dioxide (22-30) mmol/L Creatinine (0.66-1.25) mg/dL Glucose (74-99) mg/dL POC Glucose (mg/dL) (75-99) mg/dL Hemoglobin A1c (4.0-6.0) % Plasma Lactic Acid [place] 4.3 H* (0.7-2.0) mmol/L Lactate Dehydrogenase (313-618) U/L C-Reactive Protein (<10.0) mg/L Total Protein (6.3-8.2) g/dL Albumin (3.5-5.0) g/dL Procalcitonin 0.15 H (0.02-0.09) ng/mL Urine Protein (Negative) Amorphous Sediment (None) /hpf Urine Bacteria (None) /hpf Hyaline Casts (0-2) /lpf Urine Mucus (None) /hpf 06/16/20 06/16/20 06/16/20 Range/Units 21:21 21:23 21:40 RBC (4.30-5.90) m/uL Hgb (13.0-17.5) gm/dL Hct (39.0-53.0) % Plt Count (150-450) k/uL Lymphocytes # (1.0-4.8) k/uL Sodium 130 L (137-145) mmol/L Potassium (3.5-5.1) mmol/L Chloride 96 L (98-107) mmol/L Carbon Dioxide 20 L (22-30) mmol/L Creatinine 1.40 H (0.66-1.25) mg/dL Glucose 178 H (74-99) mg/dL POC Glucose (mg/dL) 191 H (75-99) mg/dL Hemoglobin A1c (4.0-6.0) % Plasma Lactic Acid [place] (0.7-2.0) mmol/L Lactate Dehydrogenase 653 H (313-618) U/L C-Reactive Protein 49.6 H (<10.0) mg/L Total Protein 6.1 L (6.3-8.2) g/dL Albumin (3.5-5.0) g/dL Procalcitonin (0.02-0.09) ng/mL Urine Protein 1+ H (Negative) Amorphous Sediment Rare H (None) /hpf Urine Bacteria Rare H (None) /hpf Hyaline Casts 14 H (0-2) /lpf Urine Mucus Rare H (None) /hpf 06/16/20 06/17/20 06/17/20 Range/Units 23:54 02:58 02:58 RBC 4.09 L (4.30-5.90) m/uL Hgb 11.8 L (13.0-17.5) gm/dL Hct 37.0 L (39.0-53.0) % Plt Count 100 L (150-450) k/uL Lymphocytes # 0.3 L (1.0-4.8) k/uL Sodium 130 L (137-145) mmol/L Potassium 3.4 L (3.5-5.1) mmol/L Chloride (98-107) mmol/L Carbon Dioxide 20 L (22-30) mmol/L Creatinine (0.66-1.25) mg/dL Glucose 216 H (74-99) mg/dL POC Glucose (mg/dL) (75-99) mg/dL Hemoglobin A1c (4.0-6.0) % Plasma Lactic Acid [place] 3.5 H* (0.7-2.0) mmol/L Lactate Dehydrogenase (313-618) U/L C-Reactive Protein (<10.0) mg/L Total Protein 5.9 L (6.3-8.2) g/dL Albumin 3.3 L (3.5-5.0) g/dL Procalcitonin (0.02-0.09) ng/mL Urine Protein (Negative) Amorphous Sediment (None) /hpf Urine Bacteria (None) /hpf Hyaline Casts (0-2) /lpf Urine Mucus (None) /hpf 06/17/20 06/17/20 06/17/20 Range/Units 02:58 07:34 11:43 RBC (4.30-5.90) m/uL Hgb (13.0-17.5) gm/dL Hct (39.0-53.0) % Plt Count (150-450) k/uL Lymphocytes # (1.0-4.8) k/uL Sodium (137-145) mmol/L Potassium (3.5-5.1) mmol/L Chloride (98-107) mmol/L Carbon Dioxide (22-30) mmol/L Creatinine (0.66-1.25) mg/dL Glucose (74-99) mg/dL POC Glucose (mg/dL) 183 H 240 H (75-99) mg/dL Hemoglobin A1c 9.1 H (4.0-6.0) % Plasma Lactic Acid [place] (0.7-2.0) mmol/L Lactate Dehydrogenase (313-618) U/L C-Reactive Protein (<10.0) mg/L Total Protein (6.3-8.2) g/dL Albumin (3.5-5.0) g/dL Procalcitonin (0.02-0.09) ng/mL Urine Protein (Negative) Amorphous Sediment (None) /hpf Urine Bacteria (None) /hpf Hyaline Casts (0-2) /lpf Urine Mucus (None) /hpf 06/17/20 Range/Units 16:59 RBC (4.30-5.90) m/uL Hgb (13.0-17.5) gm/dL Hct (39.0-53.0) % Plt Count (150-450) k/uL Lymphocytes # (1.0-4.8) k/uL Sodium (137-145) mmol/L Potassium (3.5-5.1) mmol/L Chloride (98-107) mmol/L Carbon Dioxide (22-30) mmol/L Creatinine (0.66-1.25) mg/dL Glucose (74-99) mg/dL POC Glucose (mg/dL) 236 H (75-99) mg/dL Hemoglobin A1c (4.0-6.0) % Plasma Lactic Acid [place] (0.7-2.0) mmol/L Lactate Dehydrogenase (313-618) U/L C-Reactive Protein (<10.0) mg/L Total Protein (6.3-8.2) g/dL Albumin (3.5-5.0) g/dL Procalcitonin (0.02-0.09) ng/mL Urine Protein (Negative) Amorphous Sediment (None) /hpf Urine Bacteria (None) /hpf Hyaline Casts (0-2) /lpf Urine Mucus (None) /hpf Assessment and Plan Assessment: This is a 89-year-old male with past medical history noted below who presented to the emergency room with altered mental status. Patient was evaluated in the ER and admitted to the hospital for further management of his medical problems noted below. 1. Toxo metabolic encephalopathy, now resolved. Mental status back to baseline. Computed tomography scan of the brain in the ER with no acute intracranial findings. 2. Covid-19 pneumonitis: Started on dexamethasone day #1/10, vitamin C, zinc, and vitamin D. We will continue to follow inflammatory markers. 3. Acute hypoxic respiratory failure secondary to #2. Wean off O2 as tolerated for O2 sats greater than 90% 4. Hypokalemia: Replacement ordered 5. Acute kidney injury, improved with IV fluid hydration 6. Type 2 diabetes, maintained on home dose of Lantus plus sliding scale 7. DVT prophylaxis with subcu Lovenox
[2020-06-17] MEDS ORDERED: POTASSIUM CHLORIDE 20 MEQ in WATER FOR INJECTION 1 100ML.BAG IVPB ONE (18:30)
[2020-06-17 20:03] LABS: Glucose,Whole Blood 295 mg/dL (75-99)
[2020-06-17] MEDS ORDERED: ATORVASTATIN 10 MG TAB PO SCH (21:00)
[2020-06-18] MEDS: LEVOTHYROXINE 50 MCG TAB PO SCH (06:13)
[2020-06-18 07:09] LABS: Glucose,Whole Blood 273 mg/dL (75-99)
[2020-06-18] MEDS: INSULIN DETEMIR (LEVEMIR) 100 UNIT/ML SYR SQ SCH (07:33)
[2020-06-18] MEDS: dexAMETHasone 2 MG TAB PO SCH (07:33)
[2020-06-18] MEDS: ENOXAPARIN 40 MG/0.4 ML SYRINGE SQ SCH (07:33)
[2020-06-18] MEDS: ZINC SULFATE 220 MG CAP PO SCH (07:33)
[2020-06-18] MEDS: ASPIRIN 81 MG PO SCH (07:33)
[2020-06-18] MEDS: INSULIN ASPART (NovoLOG) 100 UNIT/ML VIAL SQ SCH ×2 (07:33→11:55)
[2020-06-18] MEDS: ASCORBIC ACID 500 MG TAB PO SCH (07:34)
[2020-06-18] MEDS: CHOLECALCIFEROL 1,000 UNIT TAB PO SCH (07:34)
[2020-06-18 11:20] LABS: African American GFR (CKD) 68.6 (60.0-200.0); Anion Gap 8.5 mmol/L (4.00-12.00); BUN/Creat Ratio 19.09 Ratio (12.00-20.00); Calcium 9.5 mg/dL (8.7-10.3); Carbon Dioxide 25.5 mmol/L (21.6-31.8); Magnesium 2.1 mg/dL (1.5-2.4); Non-African American GFR(CKD) 59.2 (60.0-200.0); Potassium 4.3 mmol/L (3.5-5.5)
[2020-06-18 11:29] LABS: Glucose,Whole Blood 437 mg/dL (75-99)
[2020-06-18 11:53] LABS: Glucose,Whole Blood 377 mg/dL (75-99)
--- NOTE | 2020-06-18 12:06 | P.DS ---
Providers Date of admission: 06/16/20 22:52 Expected date of discharge: 06/18/20 Attending physician: Carlos Baker MD Primary care physician: SHAKIRA Chou Hospital Course: This is a 89-year-old male with past medical history noted below who presented to the emergency room with altered mental status. Patient was evaluated in the ER and admitted to the hospital for further management of his medical problems noted below. 1. Toxo metabolic encephalopathy, now resolved. Mental status back to baseline. Computed tomography scan of the brain in the ER with no acute intracranial findings. 2. Covid-19 pneumonitis: Started on dexamethasone day #2/10, vitamin C, zinc, and vitamin D. 3. Acute hypoxic respiratory failure secondary to #2. Resolved currently on room air 4. Hypokalemia: Replacemed 5. Acute kidney injury, improved with IV fluid hydration 6. Type 2 diabetes, maintained on home dose of insulin 7. Essential hypertension: Blood pressure was within normal range without any blood pressure medication here in the hospital. Hydralazine, hydrochlorothiazide, and amlodipine discontinued. Continue metoprolol, Imdur, and lisinopril otherwise. Follow-up with PCP as directed. Patient will be discharged home with home healthcare services. Patient Condition at Discharge: Stable Plan - Discharge Summary New Discharge Prescriptions: New Dexamethasone [Decadron] 6 mg PO DAILY #7 tablet Zinc Sulfate [Orazinc] 220 mg PO DAILY #14 cap Ascorbic Acid [Vitamin C] 1,000 mg PO DAILY #30 tab Cholecalciferol [Vitamin D3 (25 Mcg = 1000 Iu)] 5,000 unit PO DAILY #60 tab Continue Levothyroxine Sodium [Synthroid] 50 mcg PO DAILY Simvastatin [Zocor] 20 mg PO HS Isosorbide Mononitrate ER [Imdur] 30 mg PO DAILY Omeprazole [PriLOSEC] 40 mg PO AC-BRKFST Aspirin EC [Ecotrin Low Dose] 81 mg PO DAILY lisinopriL [Zestril] 20 mg PO DAILY Metoprolol Tartrate [Lopressor] 25 mg PO BID Insulin Glargine,Hum.rec.anlog [Lantus Solostar] 40 unit SQ QAM Pioglitazone [Actos] 15 mg PO DAILY Discontinued amLODIPine [Norvasc] 10 mg PO DAILY hydrALAZINE HCL [Apresoline] 50 mg PO BID hydroCHLOROthiazide [Hydrodiuril] 50 mg PO DAILY Discharge Medication List Levothyroxine Sodium [Synthroid] 50 mcg PO DAILY 11/08/13 [History] Simvastatin [Zocor] 20 mg PO HS 11/08/13 [History] Isosorbide Mononitrate ER [Imdur] 30 mg PO DAILY 08/25/18 [History] Omeprazole [PriLOSEC] 40 mg PO AC-BRKFST 08/25/18 [History] Aspirin EC [Ecotrin Low Dose] 81 mg PO DAILY 09/29/19 [History] Insulin Glargine,Hum.rec.anlog [Lantus Solostar] 40 unit SQ QAM 09/29/19 [History] Metoprolol Tartrate [Lopressor] 25 mg PO BID 09/29/19 [History] lisinopriL [Zestril] 20 mg PO DAILY 09/29/19 [History] Pioglitazone [Actos] 15 mg PO DAILY 06/13/20 [History] Ascorbic Acid [Vitamin C] 1,000 mg PO DAILY #30 tab 06/18/20 [Rx] Cholecalciferol [Vitamin D3 (25 Mcg = 1000 Iu)] 5,000 unit PO DAILY #60 tab 06/18/20 [Rx] Dexamethasone [Decadron] 6 mg PO DAILY #7 tablet 06/18/20 [Rx] Zinc Sulfate [Orazinc] 220 mg PO DAILY #14 cap 06/18/20 [Rx] Follow up Appointment(s)/Referral(s): Barbara Lopez NPC [Primary Care Provider] - 1-2 days [facility], [NON-STAFF] - Discharge Disposition: HOME WITH HOME HEALTH SERVICES
[2020-06-18 14:14] VITALS: BP 143/76; PULSE 88; RESP 18; TEMP 97.9
[2020-06-18 14:53] VITALS: BMI 27.1
== END 2020-06-18 16:37 | disposition home health service (06) | DRG 177 ==
LOC: EC 21:03 → 6NMEDSUR 22:52 → 4SSUR 06-17 16:46
PROVIDERS: ADMIT Internal Medicine; ATTEND Internal Medicine
DX: U07.1 COVID-19 (principal); J12.89 Other viral pneumonia; J96.01 Acute respiratory failure with hypoxia; G92 Toxic encephalopathy; N17.9 Acute kidney failure, unspecified; E87.2 Acidosis; C61 Malignant neoplasm of prostate; I71.9 Aortic aneurysm of unspecified site, without rupture; E11.319 Type 2 diabetes mellitus with unspecified diabetic retinopathy without macular edema; D69.6 Thrombocytopenia, unspecified; Z79.4 Long term (current) use of insulin; I44.0 Atrioventricular block, first degree; Z66 Do not resuscitate; E03.9 Hypothyroidism, unspecified; E87.6 Hypokalemia; E78.5 Hyperlipidemia, unspecified; I10 Essential (primary) hypertension; E04.9 Nontoxic goiter, unspecified; K21.9 Gastro-esophageal reflux disease without esophagitis; N40.0 Benign prostatic hyperplasia without lower urinary tract symptoms; M19.90 Unspecified osteoarthritis, unspecified site; F32.9 Major depressive disorder, single episode, unspecified; Z88.8 Allergy status to other drugs, medicaments and biological substances; Z79.890 Hormone replacement therapy; Z79.899 Other long term (current) drug therapy; Z79.82 Long term (current) use of aspirin; Z87.891 Personal history of nicotine dependence; Z80.3 Family history of malignant neoplasm of breast; Z82.49 Family history of ischemic heart disease and other diseases of the circulatory system
CPT/HCPCS: 36415; 51702; 70450; 71045; 80048; 80053; 80306; 81001; 82550; 82728; 83036; 83605; 83615; 83735; 84145; 84484; 85025; 85610; 85730; 86140; 87040; 93005; 96360; 96361; 96372; 99285

== ENCOUNTER 2020-07-18 09:34 | Emergency (ER) | payer MEDICARE ==
[2020-07-18 09:45] VITALS: RESP 18; TEMP 98.3
[2020-07-18] MEDS ORDERED: SODIUM CHLORIDE 0.9% 1,000 ML IV STA (09:53)
--- NOTE | 2020-07-18 10:07 | ED ---
Weakness HPI - General Chief complaint: Weakness Stated complaint: Confusion Time Seen by Provider: 07/18/20 09:42 Source: patient, EMS Mode of arrival: EMS Limitations: no limitations - History of Present Illness Initial comments: Patient is an 89-year-old male, history diabetes, hypertension, presenting to the emergency Department with complaints of weakness. Patient states he went to bed early yesterday and when he woke up this morning he felt weak and no one was available to help him out of bed so he states he started pushing but in and accidentally called the EMS. Patient then agreed to come into the ER for evaluation for the weakness. He states he recently recovered from having covid. He denies any fever or chills, no chest pain or shortness of breath. He states he has been having trouble urinating since this morning. Denies any abdominal pain no nausea or vomiting. He has no further complaints at this time. Upon arrival to the ER, he is 97% on 2 L, rest of vitals are normal. - Related Data Home Medications Medication Instructions Recorded Confirmed Levothyroxine Sodium [Synthroid] 50 mcg PO DAILY 11/08/13 07/18/20 Simvastatin [Zocor] 20 mg PO HS 11/08/13 07/18/20 Isosorbide Mononitrate ER [Imdur] 30 mg PO DAILY 08/25/18 07/18/20 Omeprazole [PriLOSEC] 40 mg PO [id number] 08/25/18 07/18/20 Aspirin EC [Ecotrin Low Dose] 81 mg PO DAILY 09/29/19 07/18/20 Insulin Glargine,Hum.rec.anlog 40 unit SQ QAM 09/29/19 07/18/20 [Lantus Solostar] Metoprolol Tartrate [Lopressor] 25 mg PO BID 09/29/19 07/18/20 lisinopriL [Zestril] 20 mg PO DAILY 09/29/19 07/18/20 Pioglitazone [Actos] 15 mg PO DAILY 06/13/20 07/18/20 traMADol HCL 50 mg PO Q6H PRN 07/18/20 07/18/20 Previous Rx's Medication Instructions Recorded Ascorbic Acid [Vitamin C] 1,000 mg PO DAILY #30 tab 06/18/20 Cholecalciferol [Vitamin D3 (25 5,000 unit PO DAILY #60 tab 06/18/20 Mcg = 1000 Iu)] Cephalexin [Keflex] 500 mg PO Q6HR 7 Days #28 cap 07/18/20 Allergies Allergy/AdvReac Type Severity Reaction Status Date / Time lorazepam [From Ativan] AdvReac Hallucinati Verified 06/16/20 21:39 ons Review of Systems ROS Statement: Those systems with pertinent positive or pertinent negative responses have been documented in the HPI. ROS Other: All systems not noted in ROS Statement are negative. Past Medical History Past Medical History: Diabetes Mellitus, GERD/Reflux, Hyperlipidemia, Hypertension, Prostate Disorder, Thyroid Disorder, Vascular Disorder Additional Past Medical History / Comment(s): Aortic aneurysm, arthritis, hypothyroid (goiter), enlarged prostate, current prostate cancer (Dr. Roly ROWELL), retinopathy right eye (Dr. Varela/Jose), eye injection 3x right eye. History of Any Multi-Drug Resistant Organisms: None Reported Additional Past Surgical History / Comment(s): Left knee aspiration d/t swelling, AAA repair, prostate surgery. Past Anesthesia/Blood Transfusion Reactions: No Reported Reaction Past Psychological History: Depression Smoking Status: Former smoker Past Alcohol Use History: Occasional Past Drug Use History: None Reported - Past Family History Mother Family Medical History: Cancer Father Family Medical History: Congestive Heart Failure (CHF) General Exam - General Exam Comments Initial Comments: GENERAL: Patient is well-developed and well-nourished. Patient is nontoxic and in no ac miguel distress. HEAD: Atraumatic, normocephalic. EYES: Pupils equal round and reactive to light, extraocular movements intact, sclera anicteric, conjunctiva are normal. Eyelids were unremarkable. ENT: TMs normal, nares patent, oropharynx clear without exudates. Moist mucous me mbranes. NECK: Normal range of motion, supple without lymphadenopathy or JVD. LUNGS: Unlabored respirations. Scattered wheezes throughout. HEART: Regular rate and rhythm without murmurs, rubs or gallops. ABDOMEN: Soft, nontender, normoactive bowel sounds. No guarding, no rebound. No masses appreciated. : Deferred MUSCULOSKELETAL: There is some mild swelling to the left prepatellar area, no erythema, no signs of infection. He does have some slightly decreased range of motion compared to the right. Normal extremities with adequate strength and normal range of motion, no pitting or edema. No clubbing or cyanosis. NEUROLOGICAL: Patient is alert and oriented x 3. Motor and sensory are also intact. Cranial nerves II through XII grossly intact. Symmetrical smile. Normal speech, normal gait. PSYCH: Normal mood, normal affect. SKIN: Warm, Dry, normal turgor, no rashes or lesions noted. Limitations: no limitations Course Vital Signs 07/18/20 07/18/20 07/18/20 09:42 10:44 11:00 Temperature 98.3 F Pulse Rate 86 76 82 Respiratory 18 18 18 Rate Blood Pressure 177/95 191/87 158/84 O2 Sat by Pulse 97 95 95 Oximetry 07/18/20 07/18/20 07/18/20 12:00 13:00 14:00 Temperature Pulse Rate 86 96 94 Respiratory 18 18 18 Rate Blood Pressure 140/70 164/86 159/99 O2 Sat by Pulse 95 95 95 Oximetry 07/18/20 14:26 Temperature 98.3 F Pulse Rate 94 Respiratory 18 Rate Blood Pressure 159/99 O2 Sat by Pulse 95 Oximetry EKG Findings - EKG Comments: EKG Findings:: Sinus rhythm with first-degree AV block, incomplete RBBB, no signs of acute process at this time. Similar to previous EKG on 06/16/2020. Ventricular rate 80, OH interval 288, QT 378. Medical Decision Making - Medical Decision Making Patient is an 89-year-old male presenting for weakness. His vital signs are stable, he sat no other specific complaints. Labs show no acute process, troponin was negative, BNP was normal, urine did return positive for UTI. Patient was given 1 g Rocephin in the ER and started on Keflex. EKG showed no acute process. Chest x-ray shows no acute pulmonary process, suspected descending thoracic aortic dilation, this was recently evaluated by CT and is stable. Patient was also complaining of left knee pain, mild swelling present. X-rays via no acute fracture-dislocations. This is most likely a contusion. Patient is stable for discharge. He can follow-up with his doctor. He is in agreement this plan of care. Case discussed with Dr. Purcell. - Lab Data Result diagrams: 07/18/20 10:15 07/18/20 10:15 Lab Results 07/18/20 07/18/20 07/18/20 Range/Units 10:15 10:15 10:15 WBC 6.7 (3.8-10.6) k/uL RBC 3.96 L (4.30-5.90) m/uL Hgb 11.8 L (13.0-17.5) gm/dL Hct 35.0 L (39.0-53.0) % MCV 88.4 (80.0-100.0) fL MCH 29.8 (25.0-35.0) pg MCHC 33.7 (31.0-37.0) g/dL RDW 15.4 (11.5-15.5) % Plt Count 144 L (150-450) k/uL MPV 7.3 Neutrophils % 89 % Lymphocytes % 3 % Monocytes % 4 % Eosinophils % 3 % Basophils % 0 % Neutrophils # 5.9 (1.3-7.7) k/uL Lymphocytes # 0.2 L (1.0-4.8) k/uL Monocytes # 0.3 (0-1.0) k/uL Eosinophils # 0.2 (0-0.7) k/uL Basophils # 0.0 (0-0.2) k/uL PT 11.7 (9.0-12.0) sec INR 1.1 (<1.2) APTT 34.0 H (22.0-30.0) sec Sodium 133 L (137-145) mmol/L Potassium 4.0 (3.5-5.1) mmol/L Chloride 100 (98-107) mmol/L Carbon Dioxide 25 (22-30) mmol/L Anion Gap 8 mmol/L BUN 11 (9-20) mg/dL Creatinine 0.74 (0.66-1.25) mg/dL Est GFR (CKD-EPI)AfAm >90 (>60 ml/min/1.73 sqM) Est GFR (CKD-EPI)NonAf 82 (>60 ml/min/1.73 sqM) Glucose 135 H (74-99) mg/dL Plasma Lactic Acid [place] (0.7-2.0) mmol/L Calcium 9.5 (8.4-10.2) mg/dL Magnesium 1.8 (1.6-2.3) mg/dL Total Bilirubin 1.6 H (0.2-1.3) mg/dL AST 16 L (17-59) U/L ALT 9 (4-49) U/L Alkaline Phosphatase 72 (38-126) U/L Troponin I (0.000-0.034) ng/mL NT-Pro-B Natriuret Pep pg/mL Total Protein 6.0 L (6.3-8.2) g/dL Albumin 3.2 L (3.5-5.0) g/dL Urine Color Urine Appearance (Clear) Urine pH (5.0-8.0) Ur Specific [place] (1.001-1.035) Urine Protein (Negative) Urine Glucose (UA) (Negative) Urine Ketones (Negative) Urine Blood (Negative) Urine Nitrite (Negative) Urine Bilirubin (Negative) Urine Urobilinogen (<2.0) mg/dL Ur Leukocyte Esterase (Negative) Urine RBC (0-5) /hpf Urine WBC (0-5) /hpf Urine WBC Clumps (None) /hpf Ur Squamous Epith Cells (0-4) /hpf Urine Bacteria (None) /hpf Urine Mucus (None) /hpf Coronavirus (PCR) (Not Detectd) 07/18/20 07/18/20 07/18/20 Range/Units 10:15 10:15 10:22 WBC (3.8-10.6) k/uL RBC (4.30-5.90) m/uL Hgb (13.0-17.5) gm/dL Hct (39.0-53.0) % MCV (80.0-100.0) fL MCH (25.0-35.0) pg MCHC (31.0-37.0) g/dL RDW (11.5-15.5) % Plt Count (150-450) k/uL MPV Neutrophils % % Lymphocytes % % Monocytes % % Eosinophils % % Basophils % % Neutrophils # (1.3-7.7) k/uL Lymphocytes # (1.0-4.8) k/uL Monocytes # (0-1.0) k/uL Eosinophils # (0-0.7) k/uL Basophils # (0-0.2) k/uL PT (9.0-12.0) sec INR (<1.2) APTT (22.0-30.0) sec Sodium (137-145) mmol/L Potassium (3.5-5.1) mmol/L Chloride (98-107) mmol/L Carbon Dioxide (22-30) mmol/L Anion Gap mmol/L BUN (9-20) mg/dL Creatinine (0.66-1.25) mg/dL Est GFR (CKD-EPI)AfAm (>60 ml/min/1.73 sqM) Est GFR (CKD-EPI)NonAf (>60 ml/min/1.73 sqM) Glucose (74-99) mg/dL Plasma Lactic Acid [place] 1.2 (0.7-2.0) mmol/L Calcium (8.4-10.2) mg/dL Magnesium (1.6-2.3) mg/dL Total Bilirubin (0.2-1.3) mg/dL AST (17-59) U/L ALT (4-49) U/L Alkaline Phosphatase (38-126) U/L Troponin I <0.012 (0.000-0.034) ng/mL NT-Pro-B Natriuret Pep 279 pg/mL Total Protein (6.3-8.2) g/dL Albumin (3.5-5.0) g/dL Urine Color Urine Appearance (Clear) Urine pH (5.0-8.0) Ur Specific [place] (1.001-1.035) Urine Protein (Negative) Urine Glucose (UA) (Negative) Urine Ketones (Negative) Urine Blood (Negative) Urine Nitrite (Negative) Urine Bilirubin (Negative) Urine Urobilinogen (<2.0) mg/dL Ur Leukocyte Esterase (Negative) Urine RBC (0-5) /hpf Urine WBC (0-5) /hpf Urine WBC Clumps (None) /hpf Ur Squamous Epith Cells (0-4) /hpf Urine Bacteria (None) /hpf Urine Mucus (None) /hpf Coronavirus (PCR) (Not Detectd) 07/18/20 07/18/20 Range/Units 10:22 13:29 WBC (3.8-10.6) k/uL RBC (4.30-5.90) m/uL Hgb (13.0-17.5) gm/dL Hct (39.0-53.0) % MCV (80.0-100.0) fL MCH (25.0-35.0) pg MCHC (31.0-37.0) g/dL RDW (11.5-15.5) % Plt Count (150-450) k/uL MPV Neutrophils % % Lymphocytes % % Monocytes % % Eosinophils % % Basophils % % Neutrophils # (1.3-7.7) k/uL Lymphocytes # (1.0-4.8) k/uL Monocytes # (0-1.0) k/uL Eosinophils # (0-0.7) k/uL Basophils # (0-0.2) k/uL PT (9.0-12.0) sec INR (<1.2) APTT (22.0-30.0) sec Sodium (137-145) mmol/L Potassium (3.5-5.1) mmol/L Chloride (98-107) mmol/L Carbon Dioxide (22-30) mmol/L Anion Gap mmol/L BUN (9-20) mg/dL Creatinine (0.66-1.25) mg/dL Est GFR (CKD-EPI)AfAm (>60 ml/min/1.73 sqM) Est GFR (CKD-EPI)NonAf (>60 ml/min/1.73 sqM) Glucose (74-99) mg/dL Plasma Lactic Acid [place] (0.7-2.0) mmol/L Calcium (8.4-10.2) mg/dL Magnesium (1.6-2.3) mg/dL Total Bilirubin (0.2-1.3) mg/dL AST (17-59) U/L ALT (4-49) U/L Alkaline Phosphatase (38-126) U/L Troponin I (0.000-0.034) ng/mL NT-Pro-B Natriuret Pep pg/mL Total Protein (6.3-8.2) g/dL Albumin (3.5-5.0) g/dL Urine Color Yellow Urine Appearance Cloudy (Clear) Urine pH 6.0 (5.0-8.0) Ur Specific [place] 1.022 (1.001-1.035) Urine Protein 1+ H (Negative) Urine Glucose (UA) Negative (Negative) Urine Ketones 1+ H (Negative) Urine Blood Negative (Negative) Urine Nitrite Negative (Negative) Urine Bilirubin Negative (Negative) Urine Urobilinogen 3.0 (<2.0) mg/dL Ur Leukocyte Esterase Large H (Negative) Urine RBC 8 H (0-5) /hpf Urine WBC >182 H (0-5) /hpf Urine WBC Clumps Moderate H (None) /hpf Ur Squamous Epith Cells 1 (0-4) /hpf Urine Bacteria Few H (None) /hpf Urine Mucus Moderate H (None) /hpf Coronavirus (PCR) Not Detected (Not Detectd) Disposition Clinical Impression: Weakness, UTI (urinary tract infection) Disposition: HOME SELF-CARE Condition: Stable Instructions (If sedation given, give patient instructions): Urinary Tract Infection in Men (ED) Additional Instructions: Please return to the Emergency Department if symptoms worsen or any other concerns. Take antibiotic as prescribed. Increase fluid intake. Please follow-up with your doctor. Prescriptions: Cephalexin [Keflex] 500 mg PO Q6HR 7 Days #28 cap Is patient prescribed a controlled substance at d/c from ED?: No Referrals: Barbara Lopez NPC [Primary Care Provider] - 1-2 days
[2020-07-18 10:29] LABS: Basophils % (A) 0 %; Eosinophils # (A) 0.2 k/uL (0-0.7); Eosinophils % (A) 3 %; HGB 11.8 gm/dL (13.0-17.5); Lymphocytes # (A) 0.2 k/uL (1.0-4.8); Lymphocytes % (A) 3 %; MCH 29.8 pg (25.0-35.0); MCHC 33.7 g/dL (31.0-37.0); MCV 88.4 fL (80.0-100.0); Mean Platelet Volume 7.3; Monocytes # (A) 0.3 k/uL (0-1.0); Monocytes % (A) 4 %; Neutrophils # (A) 5.9 k/uL (1.3-7.7); Neutrophils % (A) 89 %; Platelet Count 144 k/uL (150-450); RBC 3.96 m/uL (4.30-5.90); RDW 15.4 % (11.5-15.5); WBC 6.7 k/uL (3.8-10.6)
[2020-07-18 10:39] LABS: INR 1.1 (<1.2); Prothrombin Time 11.7 sec (9.0-12.0)
[2020-07-18 10:45] LABS: ALT 9 U/L (4-49); AST 16 U/L (17-59); African American GFR (CKD) >90 (>60 ml/min/1.73 sqM); Albumin 3.2 g/dL (3.5-5.0); Alkaline Phosphatase 72 U/L (38-126); Anion Gap 8 mmol/L; Blood Urea Nitrogen 11 mg/dL (9-20); Calcium 9.5 mg/dL (8.4-10.2); Carbon Dioxide 25 mmol/L (22-30); Chloride 100 mmol/L (98-107); Glucose 135 mg/dL (74-99); Magnesium 1.8 mg/dL (1.6-2.3); Non-African American GFR(CKD) 82 (>60 ml/min/1.73 sqM); Sodium 133 mmol/L (137-145); Total Bilirubin 1.6 mg/dL (0.2-1.3)
--- NOTE | 2020-07-18 10:47 | XR ---
EXAMINATION TYPE: XR chest 2V DATE OF EXAM: 07/18/2020 COMPARISON: 06/16/2020 INDICATION: Weakness TECHNIQUE: Frontal and lateral views of the chest are obtained. FINDINGS: The heart size is probably prominent. There is suspected aneurysmal dilatation of the descending thor acic aorta. This could be evaluated with CT chest. The pulmonary vasculature is normal. This is diminished from comparison. Mild plate atelectasis in the left peripheral midlung.. IMPRESSION: 1. Minimal plate atelectasis left midlung. 2. Cardiomegaly. 3. Suspected descending thoracic aortic dilatation. This could be evaluated with CT.
--- NOTE | 2020-07-18 12:05 | XR ---
EXAMINATION TYPE: XR knee complete LT DATE OF EXAM: 07/18/2020 COMPARISON: None HISTORY: Pain, swelling TECHNIQUE: Three-view left knee FINDINGS: There is prominent soft tissue swelling in the suprapatellar region. Some vague calcificati on is noted around the joint space. Posterior inferior patellar spurring is present. There is loss of medial compartment joint space. More severe loss of lateral compartment joint space is present. No a cute fractures are identified. IMPRESSION: 1. Large suprapatellar joint effusion. 2. Advanced degenerative joint changes greatest at the lateral compartment. 3. Diffuse joint space calcifications present. Correlate for calcium pyrophosphate deposition disease . 4. Consider MRI for additional evaluation
[2020-07-18 13:56] LABS: Appearance,Urine Cloudy (Clear); Bacteria,Urine Few /hpf; Bilirubin,Urine Negative (Negative); Blood,Urine Negative (Negative); Color,Urine Yellow; Glucose,Urine (UA) Negative (Negative); Ketones,Urine 1+ (Negative); Leukocyte Esterase,Urine Large (Negative); Mucus,Urine Moderate /hpf; Nitrite,Urine Negative (Negative); Protein,Urine 1+ (Negative); RBC,Urine 8 /hpf (0-5); Specific Gravity,Urine 1.022 (1.001-1.035); Squamous Epithelial Cell,Urine 1 /hpf (0-4); WBC,Urine >182 /hpf (0-5)
[2020-07-18] MEDS ORDERED: cefTRIAXone IN SWFI 1,000 MG/10 ML SYRINGE IVP STA (14:04)
[2020-07-18 14:23] VITALS: BP 159/99; PULSE 94
== END 2020-07-18 15:11 | disposition home or self-care (01) ==
LOC: EC 09:34
DX: N39.0 Urinary tract infection, site not specified (principal); R53.1 Weakness; E11.9 Type 2 diabetes mellitus without complications; C61 Malignant neoplasm of prostate; K21.9 Gastro-esophageal reflux disease without esophagitis; E78.5 Hyperlipidemia, unspecified; I10 Essential (primary) hypertension; M19.90 Unspecified osteoarthritis, unspecified site; F32.9 Major depressive disorder, single episode, unspecified; Z20.822 Contact with and (suspected) exposure to COVID-19; Z79.4 Long term (current) use of insulin; Z79.890 Hormone replacement therapy; Z79.82 Long term (current) use of aspirin; Z79.899 Other long term (current) drug therapy; Z88.8 Allergy status to other drugs, medicaments and biological substances; Z87.891 Personal history of nicotine dependence
CPT/HCPCS: 99285; 96374; 96361; 36415; 93005; 83880; 80053; 83605; 83735; 84484; 85025; 85610; 85730; 81001; 87086; 87635; 73562; 71046; J0696

== ENCOUNTER 2020-08-31 09:52 | Inpatient (IN) | payer MEDICARE ==
[2020-08-31] MEDS ORDERED: IPRATROPIUM 0.5 MG/2.5 ML NEBU INHALATION STA (09:59)
[2020-08-31] MEDS ORDERED: ALBUTEROL NEBULIZED 2.5 MG/3 ML INHALATION STA (09:59)
[2020-08-31] MEDS ORDERED: LABETALOL SYRINGE 5 MG/ML IVP STA (10:00)
[2020-08-31 10:04] LABS: Glucose,Whole Blood 195 mg/dL (75-99)
--- NOTE | 2020-08-31 10:05 | ED ---
General Adult HPI - General Chief complaint: Shortness of Breath Stated complaint: TERENCE Time Seen by Provider: 08/31/20 09:52 Source: patient, EMS, RN notes reviewed, old records reviewed Mode of arrival: ambulatory Limitations: no limitations - History of Present Illness Initial comments: This is an 89-year-old male whose caregiver went to see him today and found him less responsive than normal. When EMS arrived the patient is alert and oriented 2 and has no specific complaints though it did look like he was having a difficult time breathing and according to them. Patient denies any new pain to me he does state that he hurts all over but that's normal. Patient does state he might be a little bit more short of breath. Patient is not a very good historian. Patient denies any fever according to EMS patient received a call vaccination on . No other history is available this time caregiver did not come with the patient family did not come with the patient. - Related Data Home Medications Medication Instructions Recorded Confirmed Levothyroxine Sodium [Synthroid] 50 mcg PO DAILY 11/08/13 08/31/20 Simvastatin [Zocor] 20 mg PO HS 11/08/13 08/31/20 Isosorbide Mononitrate ER [Imdur] 30 mg PO DAILY 08/25/18 08/31/20 Omeprazole [PriLOSEC] 40 mg PO DAILY 08/25/18 08/31/20 Aspirin EC [Ecotrin Low Dose] 81 mg PO DAILY 09/29/19 08/31/20 Insulin Glargine,Hum.rec.anlog 40 unit SQ DAILY 09/29/19 08/31/20 [Lantus Solostar] Metoprolol Tartrate [Lopressor] 25 mg PO BID 09/29/19 08/31/20 lisinopriL [Zestril] 20 mg PO BID 09/29/19 08/31/20 Pioglitazone [Actos] 15 mg PO DAILY 06/13/20 08/31/20 Cholecalciferol [Vitamin D3 (25 125 mcg PO DAILY 08/31/20 08/31/20 Mcg = 1000 Iu)] Previous Rx's Medication Instructions Recorded Ascorbic Acid [Vitamin C] 1,000 mg PO DAILY #30 tab 06/18/20 Allergies Allergy/AdvReac Type Severity Reaction Status Date / Time lorazepam [From Ativan] AdvReac Hallucinati Verified 08/31/20 09:53 ons Review of Systems ROS Statement: Those systems with pertinent positive or pertinent negative responses have been documented in the HPI. ROS Other: All systems not noted in ROS Statement are negative. Past Medical History Past Medical History: Diabetes Mellitus, GERD/Reflux, Hyperlipidemia, Hypertension, Prostate Disorder, Thyroid Disorder, Vascular Disorder Additional Past Medical History / Comment(s): Aortic aneurysm, arthritis, hypot hyroid (goiter), enlarged prostate, current prostate cancer (Dr. Roly ROWELL), retinopathy right eye (Dr. Varela/Jose), eye injection 3x right eye. History of Any Multi-Drug Resistant Organisms: None Reported Additional Past Surgical History / Comment(s): Left knee aspiration d/t swelling, AAA repair, prostate surgery. Past Anesthesia/Blood Transfusion Reactions: No Reported Reaction Past Psychological History: Depression Smoking Status: Former smoker Past Alcohol Use History: Occasional Past Drug Use History: None Reported - Past Family History Mother Family Medical History: Cancer Father Family Medical History: Congestive Heart Failure (CHF) General Exam - General Exam Comments Initial Comments: GENERAL: Patient is well-developed and well-nourished. Patient is nontoxic and well- hydrated and is in mild distress. ENT: Neck is soft and supple. No significant lymphadenopathy is noted. Oropharynx is clear. Moist mucous membranes. Neck has full range of motion without eliciting any pain. EYES: The sclera were anicteric and conjunctiva were pink and moist. Extraocular movements were intact and pupils were equal round and reactive to light. Eyelids were unremarkable. PULMONARY: Diminished breath sounds bilateral bases CARDIOVASCULAR: She has no irregular heartbeat and is tachycardic at 120 bpm ABDOMEN: Soft and nontender with normal bowel sounds. SKIN: Skin is clear with no lesions or rashes and otherwise unremarkable. NEUROLOGIC: Patient is alert and oriented x3. Cranial nerves II through XII are grossly intact. Motor and sensory are also intact. Normal speech, volume and content. Symmetrical smile. MUSCULOSKELETAL: Normal extremities with adequate strength and full range of motion. LYMPHATICS: No significant lymphadenopathy is noted PSYCHIATRIC: Normal psychiatric evaluation. Limitations: no limitations Course Vital Signs 08/31/20 08/31/20 08/31/20 09:53 10:06 10:23 Temperature 99 F Pulse Rate 90 108 H Respiratory 24 24 22 Rate Blood Pressure 207/123 202/105 O2 Sat by Pulse 90 L 98 Oximetry 08/31/20 10:52 Temperature Pulse Rate 80 Respiratory Rate Blood Pressure O2 Sat by Pulse Oximetry Medical Decision Making - Medical Decision Making EKG shows atrial fibrillation with rapid ventricular response at 119 bpm QRS 104 QT interval 320 QTC is 461. Patient has Q waves inferiorly as well as in V1 and V2 and V3. - Lab Data Result diagrams: 08/31/20 10:04 08/31/20 10:04 Lab Results 08/31/20 08/31/20 08/31/20 Range/Units 10:01 10:04 10:04 WBC 6.6 (3.8-10.6) k/uL RBC 5.17 (4.30-5.90) m/uL Hgb 14.6 (13.0-17.5) gm/dL Hct 46.6 (39.0-53.0) % MCV 90.1 (80.0-100.0) fL MCH 28.1 (25.0-35.0) pg MCHC 31.3 (31.0-37.0) g/dL RDW 17.3 H (11.5-15.5) % Plt Count 121 L (150-450) k/uL MPV 8.3 Neutrophils % 85 % Lymphocytes % 6 % Monocytes % 4 % Eosinophils % 4 % Basophils % 0 % Neutrophils # 5.6 (1.3-7.7) k/uL Lymphocytes # 0.4 L (1.0-4.8) k/uL Monocytes # 0.3 (0-1.0) k/uL Eosinophils # 0.3 (0-0.7) k/uL Basophils # 0.0 (0-0.2) k/uL Hypochromasia Slight Anisocytosis Slight PT 11.7 (9.0-12.0) sec INR 1.1 (<1.2) APTT 29.6 (22.0-30.0) sec Sodium (137-145) mmol/L Potassium (3.5-5.1) mmol/L Chloride (98-107) mmol/L Carbon Dioxide (22-30) mmol/L Anion Gap mmol/L BUN (9-20) mg/dL Creatinine (0.66-1.25) mg/dL Est GFR (CKD-EPI)AfAm (>60 ml/min/1.73 sqM) Est GFR (CKD-EPI)NonAf (>60 ml/min/1.73 sqM) Glucose (74-99) mg/dL POC Glucose (mg/dL) 195 H (75-99) mg/dL POC Glu Learning Development Specialist ID Sarah Chand Plasma Lactic Acid [place] (0.7-2.0) mmol/L Calcium (8.4-10.2) mg/dL Magnesium (1.6-2.3) mg/dL Total Bilirubin (0.2-1.3) mg/dL AST (17-59) U/L ALT (4-49) U/L Alkaline Phosphatase (38-126) U/L Troponin I (0.000-0.034) ng/mL NT-Pro-B Natriuret Pep pg/mL Total Protein (6.3-8.2) g/dL Albumin (3.5-5.0) g/dL 08/31/20 08/31/20 08/31/20 Range/Units 10:04 10:04 10:04 WBC (3.8-10.6) k/uL RBC (4.30-5.90) m/uL Hgb (13.0-17.5) gm/dL Hct (39.0-53.0) % MCV (80.0-100.0) fL MCH (25.0-35.0) pg MCHC (31.0-37.0) g/dL RDW (11.5-15.5) % Plt Count (150-450) k/uL MPV Neutrophils % % Lymphocytes % % Monocytes % % Eosinophils % % Basophils % % Neutrophils # (1.3-7.7) k/uL Lymphocytes # (1.0-4.8) k/uL Monocytes # (0-1.0) k/uL Eosinophils # (0-0.7) k/uL Basophils # (0-0.2) k/uL Hypochromasia Anisocytosis PT (9.0-12.0) sec INR (<1.2) APTT (22.0-30.0) sec Sodium 132 L (137-145) mmol/L Potassium 4.8 (3.5-5.1) mmol/L Chloride 95 L (98-107) mmol/L Carbon Dioxide 23 (22-30) mmol/L Anion Gap 14 mmol/L BUN 8 L (9-20) mg/dL Creatinine 0.62 L (0.66-1.25) mg/dL Est GFR (CKD-EPI)AfAm >90 (>60 ml/min/1.73 sqM) Est GFR (CKD-EPI)NonAf 88 (>60 ml/min/1.73 sqM) Glucose 200 H (74-99) mg/dL POC Glucose (mg/dL) (75-99) mg/dL POC Glu Learning Development Specialist ID Plasma Lactic Acid [place] 3.5 H* (0.7-2.0) mmol/L Calcium 10.5 H (8.4-10.2) mg/dL Magnesium 1.6 (1.6-2.3) mg/dL Total Bilirubin 1.5 H (0.2-1.3) mg/dL AST 21 (17-59) U/L ALT 14 (4-49) U/L Alkaline Phosphatase 78 (38-126) U/L Troponin I 0.018 (0.000-0.034) ng/mL NT-Pro-B Natriuret Pep pg/mL Total Protein 7.3 (6.3-8.2) g/dL Albumin 4.2 (3.5-5.0) g/dL 08/31/20 Range/Units 10:04 WBC (3.8-10.6) k/uL RBC (4.30-5.90) m/uL Hgb (13.0-17.5) gm/dL Hct (39.0-53.0) % MCV (80.0-100.0) fL MCH (25.0-35.0) pg MCHC (31.0-37.0) g/dL RDW (11.5-15.5) % Plt Count (150-450) k/uL MPV Neutrophils % % Lymphocytes % % Monocytes % % Eosinophils % % Basophils % % Neutrophils # (1.3-7.7) k/uL Lymphocytes # (1.0-4.8) k/uL Monocytes # (0-1.0) k/uL Eosinophils # (0-0.7) k/uL Basophils # (0-0.2) k/uL Hypochromasia Anisocytosis PT (9.0-12.0) sec INR (<1.2) APTT (22.0-30.0) sec Sodium (137-145) mmol/L Potassium (3.5-5.1) mmol/L Chloride (98-107) mmol/L Carbon Dioxide (22-30) mmol/L Anion Gap mmol/L BUN (9-20) mg/dL Creatinine (0.66-1.25) mg/dL Est GFR (CKD-EPI)AfAm (>60 ml/min/1.73 sqM) Est GFR (CKD-EPI)NonAf (>60 ml/min/1.73 sqM) Glucose (74-99) mg/dL POC Glucose (mg/dL) (75-99) mg/dL POC Glu Learning Development Specialist ID Plasma Lactic Acid [place] (0.7-2.0) mmol/L Calcium (8.4-10.2) mg/dL Magnesium (1.6-2.3) mg/dL Total Bilirubin (0.2-1.3) mg/dL AST (17-59) U/L ALT (4-49) U/L Alkaline Phosphatase (38-126) U/L Troponin I (0.000-0.034) ng/mL NT-Pro-B Natriuret Pep 928 pg/mL Total Protein (6.3-8.2) g/dL Albumin (3.5-5.0) g/dL Disposition Clinical Impression: COPD exacerbation Disposition: ADMITTED IP TO THIS HOSP Referrals: Barbara Lopez NPC [Primary Care Provider] - 1-2 days Time of Disposition: 10:57
[2020-08-31 10:15] LABS: Anisocytosis Slight; Basophils % (A) 0 %; Eosinophils # (A) 0.3 k/uL (0-0.7); Eosinophils % (A) 4 %; HCT 46.6 % (39.0-53.0); HGB 14.6 gm/dL (13.0-17.5); Hypochromasia Slight; Lymphocytes # (A) 0.4 k/uL (1.0-4.8); Lymphocytes % (A) 6 %; MCH 28.1 pg (25.0-35.0); MCHC 31.3 g/dL (31.0-37.0); MCV 90.1 fL (80.0-100.0); Mean Platelet Volume 8.3; Monocytes # (A) 0.3 k/uL (0-1.0); Monocytes % (A) 4 %; Neutrophils # (A) 5.6 k/uL (1.3-7.7); Neutrophils % (A) 85 %; Platelet Count 121 k/uL (150-450); RBC 5.17 m/uL (4.30-5.90); RDW 17.3 % (11.5-15.5); WBC 6.6 k/uL (3.8-10.6)
[2020-08-31 10:22] LABS: INR 1.1 (<1.2); Partial Thromboplastin Time 29.6 sec (22.0-30.0); Prothrombin Time 11.7 sec (9.0-12.0)
--- NOTE | 2020-08-31 10:25 | XR ---
EXAMINATION TYPE: XR chest 2V DATE OF EXAM: 08/31/2020 COMPARISON: 07/18/20 HISTORY: Shortness of breath TECHNIQUE: Frontal and lateral views of the chest are obtained. FINDINGS: Scattered senescent parenchymal changes noted. Hyperinflation compatible with COPD. No evidence for infiltrate. No evidence for atelectasis. Heart size is stable. Mediastinal structures are stable and grossly unremarkable. Large fixed hiatal hernia noted. No evidence for hilar prominence. Degenerative changes dorsal spine. IMPRESSION: 1. No evidence for acute pulmonary disease.
[2020-08-31 10:26] LABS: ALT 14 U/L (4-49); AST 21 U/L (17-59); African American GFR (CKD) >90 (>60 ml/min/1.73 sqM); Albumin 4.2 g/dL (3.5-5.0); Alkaline Phosphatase 78 U/L (38-126); Anion Gap 14 mmol/L; Blood Urea Nitrogen 8 mg/dL (9-20); Calcium 10.5 mg/dL (8.4-10.2); Carbon Dioxide 23 mmol/L (22-30); Chloride 95 mmol/L (98-107); Glucose 200 mg/dL (74-99); Magnesium 1.6 mg/dL (1.6-2.3); Non-African American GFR(CKD) 88 (>60 ml/min/1.73 sqM); Potassium 4.8 mmol/L (3.5-5.1); Sodium 132 mmol/L (137-145); Total Bilirubin 1.5 mg/dL (0.2-1.3); Total Protein 7.3 g/dL (6.3-8.2)
[2020-08-31] MEDS ORDERED: IPRATROPIUM-ALBUTEROL 3 ML NEB INHALATION PRN (10:58)
[2020-08-31] MEDS ORDERED: methylPREDNISolone SOD SUCCI 125 MG/2 ML VIAL IV STA (10:58)
--- NOTE | 2020-08-31 13:15 | CT ---
EXAMINATION TYPE: CODE STROKE: CT brain wo contr DATE OF EXAM: 08/31/2020 COMPARISON: 06/16/20 HISTORY: Upper extremity weakness. CT DLP: 1191.[address] of the brain was performed. The ventricles, basal cisterns and sulci overlying the cerebral convexities demonstrate mild enlargem ent. There is no evidence for intracranial hemorrhage or sulcal effacement. There is decreased attenuation about the periventricular white matter and deep white matter of both c erebral hemispheres, compatible with chronic small vessel ischemia. Differential diagnosis does inclu de demyelination. No mass effects are seen.No midline shift. Osseous calvarium is intact. Paranasal sinus mucosal thickening noted. If symptoms persist consider MRI. IMPRESSION: 1. Age related atrophic and chronic small vessel ischemic change without acute intracranial process s een at this time.
[2020-08-31] MEDS ORDERED: CLOPIDOGREL 75 MG TAB PO STA (13:35)
[2020-08-31] MEDS ORDERED: LABETALOL 5 MG/ML VIAL MDV IVP PRN (13:36)
--- NOTE | 2020-08-31 13:36 | CT ---
EXAMINATION TYPE: CODE STROKE: CTA head neck DATE OF EXAM: 08/31/2020 COMPARISON: None HISTORY: Upper extremity weakness. CT DLP: 521.1 mGycm CONTRAST: Performed with IV Contrast, patient injected with 65 mL of Isovue 370. Combination Contrast CTA cervical carotids and [place] of [place] CTA cervical carotids with 3-D recons truction Contrast CTA of the cervical carotids was performed 3-D reconstruction imaging obtained at a separate workstation. Right carotid system: Mild plaque is seen of the right common carotid artery. There is mild plaque a lso noted at the carotid bulb and proximal ICA. No significant diameter reduction. ECA is patent. Right vertebral artery appears unremarkable. Left carotid system: Mild plaque is seen of the left common carotid artery. There is mild plaque als o noted at the carotid bulb and proximal ICA. No significant diameter reduction. ECA is patent. Lef t vertebral artery appears unremarkable. IMPRESSION: 1. No significant diameter reduction to account for the patient's symptoms. CTA [place] of Wu with 3-D reconstruction Contrast CTA of the [place] of Wu was performed 3-D reconstruction imaging obtained at a separate workstation. Vertebrobasilar system as well as intracranial portions of the internal carotid arteries and their ma trang tributaries are patent. I do not see evidence for sizable aneurysm or vascular malformation. Pl ease note MRI provides greater sensitivity and specificity. Visualized brain appears grossly unremar kable. IMPRESSION: 1. No significant abnormality.
--- NOTE | 2020-08-31 14:15 | P.HPIM ---
History of Present Illness H&P Date: 08/31/20 Chief Complaint: letheragy Patient is an 89 yo CM with Diabetes on insulin, HTN, HLD, and known prostate cancer who resented to the ER secondary to increased lethargy. On arrival to the ER he was known to be hypertensive with a blood pressure of 207/123 and was satting 90% on room air. Temperature 90.9. Initial EKG demonstrated A. fib with rapid ventricular response at a rate of 119, patient does not have history of A. fib. Initial laboratory analysis showed thrombocytopenia which is chronic for the patient. Chemistries demonstrated sodium 132, glucose 200, lactic acid 3.5, calcium 10.5, total bilirubin of 1.5. Covid 19 testing was negative. Chest x-ray showed no acute process and hyperinflation compatible COPD. Patient examined at bedside. He is having difficulty with garbled speech and inconsistently answering questions along with difficulty hearing. Son and [id number] were contacted. All information verified by them. They report that he has comfort keepers that, every day between 8 and noon. Today he did not answer his door [facility] and they subsequently had the apartment complex open the door. He was found leaning over on his bed diagonally, with urine soaking the bed. He was noted to be pale in color, dyspnic, with SpO2 was 58% however when EMS arrived SpO2 was 87% and blood pressure was 229/130. Was also noted that he did not take his pills from last evening or this morning. He typically lives alone with a comfort keepers at [facility]. He does not require ambulatory aids when in his apartment. They report that family was unable to get him on the phone after 5 PM yesterday but that is not unusual. He states he was in his normal state of health yesterday. They report that he is alert and oriented 3 at baseline but does get confused when in the hospital. Yesterday he was very concerned about losing his eyesight is he required an injection this week secondary to his diabetic retinopathy. His best phone also from Covid 3 days prior to admission. He received his first Covid 19 vaccine on 08/29. He has chronic shortness of breath and chronic cough. He has no known history of A. fib, prior myocardial infarction, or prior stroke. His blood pressure typically runs high with systolics in the 170s and diastolics close to 100. They report that he takes 20 units of Lantus if his blood sugar is less than 120 and 40 units of his blood sugars over 120. He follows with Dr. Núñez for e ndocrinology. Code stroke activated Review of Systems Pertinent positives and negatives as discussed in HPI, a complete review of systems was performed and all other systems are negative. Past Medical History Past Medical History: Diabetes Mellitus, GERD/Reflux, Hyperlipidemia, Hypertension, Prostate Disorder, Thyroid Disorder, Vascular Disorder Additional Past Medical History / Comment(s): Aortic aneurysm, arthritis, hypothyroid (goiter), enlarged prostate, current prostate cancer (Dr. Roly ROWELL), retinopathy right eye (Dr. Varela/Jose), eye injection 3x right eye. History of Any Multi-Drug Resistant Organisms: None Reported Additional Past Surgical History / Comment(s): Left knee aspiration d/t swelling, AAA repair, prostate surgery. Past Anesthesia/Blood Transfusion Reactions: No Reported Reaction Past Psychological History: Depression Smoking Status: Former smoker Past Alcohol Use History: Occasional Past Drug Use History: None Reported - Past Family History Mother Family Medical History: Cancer Father Family Medical History: Congestive Heart Failure (CHF) Medications and Allergies Home Medications Medication Instructions Recorded Confirmed Type Levothyroxine Sodium [Synthroid] 50 mcg PO DAILY 11/08/13 08/31/20 History Simvastatin [Zocor] 20 mg PO HS 11/08/13 08/31/20 History Isosorbide Mononitrate ER [Imdur] 30 mg PO DAILY 08/25/18 08/31/20 History Omeprazole [PriLOSEC] 40 mg PO DAILY 08/25/18 08/31/20 History Aspirin EC [Ecotrin Low Dose] 81 mg PO DAILY 09/29/19 08/31/20 History Insulin Glargine,Hum.rec.anlog 40 unit SQ DAILY 09/29/19 08/31/20 History [Lantus Solostar] Metoprolol Tartrate [Lopressor] 25 mg PO BID 09/29/19 08/31/20 History lisinopriL [Zestril] 20 mg PO BID 09/29/19 08/31/20 History Pioglitazone [Actos] 15 mg PO DAILY 06/13/20 08/31/20 History Allergies Allergy/AdvReac Type Severity Reaction Status Date / Time lorazepam [From Ativan] AdvReac Hallucinati Verified 08/31/20 09:53 ons Physical Exam Osteopathic Statement: *. No significant issues noted on an osteopathic structural exam other than those noted in the History and Physical/Consult. Vitals: Vital Signs Temp Pulse Resp BP Pulse Ox 08/31/20 11:04 68 16 171/94 97 08/31/20 10:52 80 08/31/20 10:23 108 H 22 202/105 98 08/31/20 10:06 24 08/31/20 09:53 99 F 90 24 207/123 90 L Intake and Output 08/30/20 08/31/20 08/31/20 22:59 06:59 14:59 Other: Weight 99.79 kg General: Ill-appearing, no acute distress, appears at stated age Derm: warm, dry Head: atraumatic, normocephalic, symmetric Eyes: EOMI, no lid lag, anicteric sclera, pupils equal round reactive to light ENT: Nose and ears atraumatic, no thrush, no pharyngeal erythema Neck: No thyromegaly, no cervical lymphadenopathy, trachea midline, supple Mouth: no lip lesion, mucus membranes Dry Cardiovascular: S1S2 Irregular, no murmur, positive posterior tibial pulse bilateral, 1+ edema left greater than right, capillary refill less than 2 seconds Lungs: Decreased breath sounds bilateral, no ronchi, no rales, no wheeze, no accessory muscle use Abdominal: soft, nontender to palpation, no guarding, no appreciable organomegaly, normal bowel sounds Ext: no gross muscle atrophy, muscle strength muscle strength 5 out of 5 in all 4 extremities, no contractures Neuro: Slightly right-sided lid lag, pupils equal round reactive to light, extraocular motion intact, possible slight asymmetry of the nasal labial fold, uveal elevation equal, no tongue deviation, able to shrug shoulders, muscle strength equal bilaterally in upper extremities with no pronator drift, bilateral lower extremity weakness right greater than left, light touch intact in all 4 extremities and bilateral face, no tremors noted, biceps reflexes 2 out of 4, patellar 2 out of 4 on difficulty with speech perseveration on objects, slow thinking, intermittent difficulty following commands that may be related to difficulty hearing Psych: Awake, unable to answer what year it is and states that we are at "[place]".Does not appear anxious. Results CBC & Chem 7: 08/31/20 10:04 08/31/20 10:04 Labs: Abnormal Lab Results - Last 24 Hours (Table) 08/31/20 08/31/20 08/31/20 Range/Units 10:01 10:04 10:04 RDW 17.3 H (11.5-15.5) % Plt Count 121 L (150-450) k/uL Lymphocytes # 0.4 L (1.0-4.8) k/uL Sodium 132 L (137-145) mmol/L Chloride 95 L (98-107) mmol/L BUN 8 L (9-20) mg/dL Creatinine 0.62 L (0.66-1.25) mg/dL Glucose 200 H (74-99) mg/dL POC Glucose (mg/dL) 195 H (75-99) mg/dL Plasma Lactic Acid [place] (0.7-2.0) mmol/L Calcium 10.5 H (8.4-10.2) mg/dL Total Bilirubin 1.5 H (0.2-1.3) mg/dL 08/31/20 Range/Units 10:04 RDW (11.5-15.5) % Plt Count (150-450) k/uL Lymphocytes # (1.0-4.8) k/uL Sodium (137-145) mmol/L Chloride (98-107) mmol/L BUN (9-20) mg/dL Creatinine (0.66-1.25) mg/dL Glucose (74-99) mg/dL POC Glucose (mg/dL) (75-99) mg/dL Plasma Lactic Acid [place] 3.5 H* (0.7-2.0) mmol/L Calcium (8.4-10.2) mg/dL Total Bilirubin (0.2-1.3) mg/dL Assessment and Plan Assessment: New onset P. A fib - currently return to sinus rhythm - cardio consult - tsh, mg - echo - tele - no AC at this time due to possible stroke Dysarthria - possible CVA vs Encephalopathy, Hypertensive urgency -Code stroke activated, case discussed with Tamera and neurology at bedside -Echocardiogram, telemetry monitoring -Aspirin, Plavix load followed by 75 mg daily, statin -Hold home hypertensive medications and treat blood pressure greater than 220 systolic or 120 diastolic with labetalol -MRI in AM -neurochecks - PT/OT/speech eval - bedside swallow Hypertensive urgency -Due to possibility of stroke oral blood pressure medications will be held and labetalol administered if systolic greater than 200 diastolic greater than 120 -Follow blood pressures Dyslipidemia -Statin Diabetes type II, 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 Hypothyroidism - check TSH - synthorid Diabetic retinopathy, difficulty with vision Difficulty hearing Lactic acidosis - likely secondary to A fib with hypoperfusion - Limit IVF due to HTN - follow levels Pyrexia - Check UA, blood cultures, flu THrombocytopenia, chronic - follow CBC, at baseline The patient is admitted with an anticipated greater than 2 midnight stay for evaluation of altered mentation new onset A fib. Surrogate decision-maker: Sandro Hammond- contacted over the phone CODE STATUS:DNR DVT prophylaxis: Lovenox Discussed with: patient, nursing Anticipated discharge date: 4-[address]: SNF A total of 75 minutes was spent on the care of this complex patient more than 50% of the time was spent in counseling and care coordination.
[2020-08-31 15:43] LABS: Appearance,Urine Clear (Clear); Bilirubin,Urine Negative (Negative); Blood,Urine Negative (Negative); Color,Urine Yellow; Glucose,Urine (UA) 1+ (Negative); Ketones,Urine 1+ (Negative); Leukocyte Esterase,Urine Negative (Negative); Mucus,Urine Rare /hpf; Nitrite,Urine Negative (Negative); Protein,Urine 3+ (Negative); RBC,Urine 2 /hpf (0-5); Specific Gravity,Urine 1.018 (1.001-1.035); Squamous Epithelial Cell,Urine <1 /hpf (0-4); WBC,Urine 2 /hpf (0-5)
[2020-08-31] MEDS: MAGNESIUM SULFATE-D5W PMX 1 GM in DEXTROSE/WATER 1 100ML.BAG IVPB SCH ×2 (16:22→18:54)
--- NOTE | 2020-08-31 16:29 | P.CNNES ---
History of Present Illness Consult date: 08/31/20 Requesting physician: Harper Aguila Reason for Consult: stroke History of Present Illness: This is a 89-year-old rejieman with medical history of hypertension, diabetes mellitus, hypertension, diabetic retinopathy that presented to the emergency department via EMS on 08/31/2020 since she was less responsive. Neurology is consulted for possible stroke. History was obtained from medical record since the patient is unable provide the history. Per the ED note upon the caregiver check up on the patient the the patient was having difficulty breathing and felt he was "he hurts all over" but that was normal. Was felt that the patient had COPD exacerbation by the ED team. The he was admitted to the 4 S. stroke code was activated by the primary team since they felt the patient the is not moving his extremities was the mostly was the lower extremity and the repeating himself. Per the primary team it is noted that the patient lives alone but has a studio engineer that helps him out couple hours a day. It seems the patient's last normal state was before 5:00 via phone per family. Today the patient was being checked up on when he was noted that to be lying in bed and stting diagnoally, unresponsive and the had urinary incontinence. There is no jerking of the extremities that was notified. It seems that the patient has not taken his medication yesterday but his blood pressure has been the high as seems that this is a chronic issue ranging between 170s systolic. Regarding history of atrial fibrillation the patient does not have history of atrial fibrillation and the EKG on today showed new onset atrial fibrillation. Patient baseline is alert oriented 3 per the primary team and uses a cane or walker. Patient on medication is aspirin 81 mg, Zocor 20 mg, lisinopril, metoprolol, isosorbide, insulin, Actos, Synthroid Workup in the hospital consisted of: Initial vital signs his blood pressure of 207/123, heart rate of 90, respiratory of 24, temperature of 99 Fahrenheit axillary, respiratory of 24 and pulse ox of 90 L at room air as a result the patient was placed on 2 L of nasal cannula. Patient repeated blood pressure was 202/105. EKG is reported as atrophic ablation with rapid the ventricular response at. Right superior axis deviation. Incomplete right bundle branch block. Right ventricular hypertrophy. Inferior infarct, age undetermined. Anterior infarct, age undetermined. Abnormal EKG. White blood cell is 6.6 which is normal. The platelet is 121. Initial POC glucose is 195. The AST 21 and the ALT is 14. Sodium is 132. Was also felt by the primary team that the patient possibly had NIH of 8 Stroke team the was contacted and it was felt the patient the was not a TPA cand idate since last normal was before 5:00pm on 09-01-2020. CTA of the head and neck was reported as no signature diameter reduction to account for the patient's symptoms. No significant abnormality. CT of the head is reported as age-related atrophic and chronic small vessel ischemic change without acute intracranial process seen at this time. Review of Systems Review of system is limited but the prone positive and negative as per HPI. Past Medical History Past Medical History: Diabetes Mellitus, GERD/Reflux, Hyperlipidemia, Hy pertension, Prostate Disorder, Thyroid Disorder, Vascular Disorder Additional Past Medical History / Comment(s): Aortic aneurysm, arthritis, hypothyroid (goiter), enlarged prostate, current prostate cancer (Dr. Roly ROWELL), retinopathy right eye (Dr. Varela/Jose), eye injection 3x right eye. History of Any Multi-Drug Resistant Organisms: None Reported Additional Past Surgical History / Comment(s): Left knee aspiration d/t s welling, AAA repair, prostate surgery. Past Anesthesia/Blood Transfusion Reactions: No Reported Reaction Past Psychological History: Depression Smoking Status: Former smoker Past Alcohol Use History: Occasional Past Drug Use History: None Reported - Past Family History Mother Family Medical History: Cancer Father Family Medical History: Congestive Heart Failure (CHF) Medications and Allergies Home Medications Medication Instructions Recorded Confirmed Type Levothyroxine Sodium [Synthroid] 50 mcg PO DAILY 11/08/13 08/31/20 History Simvastatin [Zocor] 20 mg PO HS 11/08/13 08/31/20 History Isosorbide Mononitrate ER [Imdur] 30 mg PO DAILY 08/25/18 08/31/20 History Omeprazole [PriLOSEC] 40 mg PO DAILY 08/25/18 08/31/20 History Aspirin EC [Ecotrin Low Dose] 81 mg PO DAILY 09/29/19 08/31/20 History Insulin Glargine,Hum.rec.anlog 40 unit SQ DAILY 09/29/19 08/31/20 History [Lantus Solostar] lisinopriL [Zestril] 20 mg PO BID 09/29/19 08/31/20 History Pioglitazone [Actos] 15 mg PO DAILY 06/13/20 08/31/20 History Allergies Allergy/AdvReac Type Severity Reaction Status Date / Time lorazepam [From Ativan] AdvReac Hallucinati Verified 08/31/20 09:53 ons Physical Examination - Vital Signs Vital Signs: Vital Signs Temp Pulse Resp BP Pulse Ox 08/31/20 11:04 68 16 171/94 97 08/31/20 10:52 80 08/31/20 10:23 108 H 22 202/105 98 08/31/20 10:06 24 08/31/20 09:53 99 F 90 24 207/123 90 L Intake and Output 08/30/20 08/31/20 08/31/20 22:59 06:59 14:59 Other: Weight 99.79 kg GENERAL: The patient is lying in bed and is not in acute distress. CHEST: The heart rate is irregular rate rhythm. No murmurs to auscultation. No carotid bruit bilaterally. LUNG: Clear to auscultation bilaterally no wheezing noted throughout. Not labored breathing. ABDOMEN/GI: Bowel sounds present in all 4 quadrants. No tenderness to palpation throughout. NEUROLOGICAL: Higher mental function: The patient is drowsy but awakeable to voice. He is oriented to self. He was following simple commands (showing thumbs up, opening and closing eyes to command). Had Preservation of speech (kept on repeating watch no matter what object i showed him). He was able to repeat phrases correctly (such as it is a beautiful and [place] day outside). No neglect. Cranial nerves: The pupils are round, equal and reactive to light. Visual jansen are full to confrontation throughout. Extraocular movement is intact no nystagmus is noted. The facial strength is normal throughout. Hearing seems moderately to severely decreased. Tongue is midline and moved [id number] without any difficulty. Mild to moderate dysarthria is noted. Rest of cranial nerves could not be assess because of cooperation.. Motor: Gait is deferred. The strength is 5 over 5 throughout bilateral upper extremities while lower was able to lift bilateral above gravity without drift.. Normal tone and bulk. Sensation: Could not assess. Reflexes (right/left): 2+ uppers and 1+ lowers Plantars are mute bilaterally. Results Schaefer virus PCR was not detected. Prognosis study: PT of 11.7, INR 1.1 and PTT of 29.6 - Laboratory Findings CBC and BMP: 08/31/20 10:04 08/31/20 10:04 Abnormal Lab Findings: Abnormal Labs 08/31/20 08/31/20 08/31/20 10:01 10:04 10:04 RDW 17.3 H Plt Count 121 L Lymphocytes # 0.4 L Sodium 132 L Chloride 95 L BUN 8 L Creatinine 0.62 L Glucose 200 H POC Glucose (mg/dL) 195 H Plasma Lactic Acid [place] Calcium 10.5 H Total Bilirubin 1.5 H 08/31/20 10:04 RDW Plt Count Lymphocytes # Sodium Chloride BUN Creatinine Glucose POC Glucose (mg/dL) Plasma Lactic Acid [place] 3.5 H* Calcium Total Bilirubin Assessment and Plan Assessment: This is a 89-year-old malik with multiple medical problem who presented to the emergency department via EMS on 08/31/2020 since she was less responsive. He comes in with a blood pressure of 202/105 and seems hypertension is unco ntrolled as baseline but worse today. A stroke code was activated on the 08/31/2020 since the patient was repeating himself and not moving the extremities and the last normal state was on 08/30/2020 before 5:00pm. He did not receive IV tpa since outside window. Aphasia (seems broca) with dysarthria seems likely due to stroke especially with multiple risk factors (new onset atrial fibrillation, uncontrolled HTN, diabetes, dyslipidemia). New onset the intra-fibrillation Hypertensive urgency Patient was having difficulty breathing. Patient initial blood pressure was 207/123 and pulse ox of 90 L at room air. History of hypertension that is uncontrolled. Elevated sugar Atrial fibrillation and not on anticoagulation Diabetes mellitus diabetic retinopathy Plan: Note patient to continue aspirin 81 and patient was loaded with Plavix 300 once then the to be on Plavix 75. Patient to be on dual antiplatelets for now. Ordered Lipitor 80 mg daily. Recommend MRI of the brain. The patient cannot get MRI the brain then recommend repeat CT of the head 24-40 hours after symptoms. Recommend 2-D echo, hemoglobin A1c, lipid panel. Ordered TSH. Recommend PT, OT and REPAIR CAMERAMAN consult. Cardiology team is consulted for new onset atrial fibrillation. Regarding the atrial fibrillation hold off on anticoagulation for now until we get MRI the brain. Regarding uncontrolled sugar will defer management to primary team. Will defer the rest of medical management to the primary team. A shunt is DO NOT INTUBATE and DO NOT RESUSCITATE according to the primary team. The plan was discussed with the patient's primary team. Thank you for the consultation. Dr. Augustine will take over coverage for neurology service starting tomorrow (09/01/2020). Benjamin Vargas MD Neuro-Hospitalist Time with Patient: Greater than 30
[2020-08-31 16:46] LABS: Glucose,Whole Blood 277 mg/dL (75-99)
[2020-08-31] MEDS ORDERED: INSULIN ASPART (NovoLOG) 100 UNIT/ML VIAL SQ SCH (17:30)
[2020-08-31] MEDS ORDERED: methylPREDNISolone SOD SUCCI 125 MG/2 ML VIAL IV SCH (18:00)
[2020-08-31 19:03] LABS: Glucose,Whole Blood 350 mg/dL (75-99)
[2020-08-31 20:50] VITALS: BP 176/92; PULSE 94; RESP 22; TEMP 98.4
[2020-08-31] MEDS ORDERED: ATORVASTATIN 80 MG TAB PO SCH (21:00)
[2020-08-31] MEDS ORDERED: INSULIN DETEMIR (LEVEMIR) 100 UNIT/ML SYR SQ SCH (21:00)
[2020-09-01] MEDS ORDERED: LEVOTHYROXINE 50 MCG TAB PO SCH (06:30)
[2020-09-01] MEDS ORDERED: PANTOPRAZOLE 40 MG TABLET PO SCH (07:30)
--- NOTE | 2020-09-01 07:40 | P.DS ---
Providers Date of admission: 08/31/20 10:58 Expected date of discharge: 09/01/20 Attending physician: Harper Aguila, DO Consults: 08/31/20 12:50 Consult Physician Stat Consulting Provider: Benjamin Vargas Consult Reason/Comments: stroke Do you want consulting provider notified?: Yes 08/31/20 12:57 Consult Physician Routine Consulting Provider: Landon Scott Consult Reason/Comments: new onset A fib Do you want consulting provider notified?: Yes Primary care physician: SHAKIRA Chou Hospital Course: Patient on 08/31/2020 and 20:28 Patient was not seen or examined by me during this hospitalization A further details about this hospitalization please refer to the H&P dated 08/31/2020 Plan - Discharge Summary Discharge Rx Participant: No New Discharge Prescriptions: No Action Levothyroxine Sodium [Synthroid] 50 mcg PO DAILY Simvastatin [Zocor] 20 mg PO HS Isosorbide Mononitrate ER [Imdur] 30 mg PO DAILY Omeprazole [PriLOSEC] 40 mg PO DAILY Aspirin EC [Ecotrin Low Dose] 81 mg PO DAILY lisinopriL [Zestril] 20 mg PO BID Insulin Glargine,Hum.rec.anlog [Lantus Solostar] 40 unit SQ DAILY Pioglitazone [Actos] 15 mg PO DAILY Discharge Medication List Levothyroxine Sodium [Synthroid] 50 mcg PO DAILY 11/08/13 [History] Simvastatin [Zocor] 20 mg PO HS 11/08/13 [History] Isosorbide Mononitrate ER [Imdur] 30 mg PO DAILY 08/25/18 [History] Omeprazole [PriLOSEC] 40 mg PO DAILY 08/25/18 [History] Aspirin EC [Ecotrin Low Dose] 81 mg PO DAILY 09/29/19 [History] Insulin Glargine,Hum.rec.anlog [Lantus Solostar] 40 unit SQ DAILY 09/29/19 [History] lisinopriL [Zestril] 20 mg PO BID 09/29/19 [History] Pioglitazone [Actos] 15 mg PO DAILY 06/13/20 [History] Follow up Appointment(s)/Referral(s): Barbara Lopez NPC [Primary Care Provider] - 1-2 days Discharge Disposition: - Preliminary Cause of Preliminary Cause of : Cardiac arrest
[2020-09-01] MEDS ORDERED: CLOPIDOGREL 75 MG TAB PO SCH (09:00)
[2020-09-01] MEDS ORDERED: ASPIRIN 81 MG PO SCH (09:00)
--- NOTE | 2020-09-02 19:19 | CDI ---
Documentation Clarification Form Mortality Review Date: 09/02/2020 07:09:56 PM From: Stefany Quach RN, CCDS Admit Date: 08/31/2020 10:58:00 AM Patient Name: Dar Marie Visit Number: [id number] Discharge Date: 08/31/2020 11:09:00 PM ATTENTION: The Clinical Documentation Specialists (CDI) and [facility] Coding Staff appreciate your assistance in clarifying documentation. Please respond to the clarification below the line at the bottom and electronically sign. The CDI & [facility] Coding staff will review the response and follow-up if needed. Please note: Queries are made part of the Legal Health Record. If you have any questions, please contact the author of this message via ITS. Dr. Benjamin Vargas CVA is documented as a diagnosis in the Neurology consult and requires further specificity to accurately reflect patient SOI/ROM. History/risk factors: New onset Paroxysmal Atrial Fib, HTN Urgency DM2, Dyslipidemia, Hyponatremia, Hypothyroidism, chronic thrombocytopenia, AAA Clinical Indicators: 08/31 CT Brain: 1.Age related atrophic and chronic small vessel ischemic change without acute intracranial process seen at this time." 08/31 CTA Head and Neck: No significant diameter reduction to account for the patient's symptoms. CTA COW: No significant abnormality." Treatment: 08/31 1000 IVP Labetalol 20 mg IVP x 1 Code Stroke called In your professional opinion, please clarify each of the following: Cause of Stroke/CVA: Stenosis/Occlusion Embolic <--- Thrombolytic Hypertension Other (please specify) Unable to Determine Laterality: Left Right Bilateral Other (please specify) Unable to Determine <------- Vessel/Location Involved: Anterior Cerebral Artery Cerebellar Middle Cerebral Artery Posterior Cerebral Artery Precerebral Artery: Carotid Basilar Auditory, internal Vertebral Other (please specify) Unable to Determine <------ Also, indicate any deficits related to the Stroke/CVA in your documentation (such as aphasia, ataxia, cognitive deficits, dysphagia, hemiplegiaetc.) Aphasia (Last Revision: April 2017) MTDD
--- NOTE | 2020-09-02 19:54 | CDI ---
Documentation Clarification Form Date: 09/02/2020 07:40:19 PM From: Stefany Quach RN, CCDS Admit Date: 08/31/2020 10:58:00 AM Patient Name: Dar Marie Visit Number: [id number] Discharge Date: 08/31/2020 11:09:00 PM ATTENTION: The Clinical Documentation Specialists (CDI) and [facility] Coding Staff appreciate your assistance in clarifying documentation. Please respond to the clarification below the line at the bottom and electronically sign. The CDI & [facility] Coding staff will review the response and follow-up if needed. Please note: Queries are made part of the Legal Health Record. If you have any questions, please contact the author of this message via ITS. Dr. Frances Anaay Documentation of COPD Exacerbation is located in the 08/31 ED note and the 08/31 Neurology Consult. Please indicate if this was a clinically significant diagnosis to accurately reflect the patient's SOI/ROM. History/Risk Factors: GERD, HTN, no documented Hx of COPD Present or past smoker: former smoker Home O2: none Clinical Indicators: 08/31 ED Note: "Clinical Impression: COPD exacerbation." 08/31 Neurology Consult: "Was felt that the patient had COPD exacerbation by the ED team." 08/31 H&P: "Chief Complaint: Chest x-ray showed no acute process and hyperinflation compatible COPD." 08/31 CXR: "Hyperinflation compatible with COPD. No evidence for acute pulmonary disease." 08/31 952 Admission Vital Signs/Pulse Oximetry: Temp 99, HR 90, RR 24 labored w/ SOB, B/P 207/123, Spo2 90% on RA 08/31 H&P: Lung and Respiratory Assessment: "Lungs: Decreased breath sounds bilateral, no rhonchi, no rales, no wheeze, no accessory muscle use." Treatment: Nebulizers: 08/31 0959 Ventolin 5mg INH x 1 & Atrovent .5mg INH x 1 08/31 1700 IVPB Magnesium Sulfate 1 gm x 2 doses 08/31 1058 Solu-Medrol 125 mg IVP OT O2 @ 2-3 liters In your professional opinion, can you please clarify if the above findings and treatment signify any of the following? Acute Exacerbation of Chronic Obstructive Pulmonary Disease (COPD) COPD w/o exacerbation Other condition, please specify Unable to determine (Last Revision: April 2017) [facility]
--- NOTE | 2020-09-02 20:08 | CDI ---
Documentation Clarification Form Mortality Review Date: 09/02/2020 07:56:24 PM From: Stefany Quach RN, CCDS Admit Date: 08/31/2020 10:58:00 AM Patient Name: Dar Marie Visit Number: [id number] Discharge Date: 08/31/2020 11:09:00 PM ATTENTION: The Clinical Documentation Specialists (CDI) and [facility] Coding Staff appreciate your assistance in clarifying documentation. Please respond to the clarification below the line at the bottom and electronically sign. The CDI & [facility] Coding staff will review the response and follow-up if needed. Please note: Queries are made part of the Legal Health Record. If you have any questions, please contact the author of this message via ITS. Dr. Frances Anaya Your patient has the documented diagnosis of Cardiac Arrest in the D/C Summary with new onset paroxysmal atrial fibrillation and CVA. 08/31 2106 Nursing Notes: "During shift change and report performed neuro check at 1950. Per day shift RN no new deficits noted. PT was at current baseline and lethargic at this time of assessment. Received a call from telemetry 2017 about HR being in 40's. Upon assessment PT unresponsive. Pronounced PT of passing at 2027." A relationship between diagnoses cannot be assumed unless documented as such by the attending physician. In order to capture the severity of condition; please document the relationship, if any, between these diagnoses. History/Risk Factors: New onset atrial Fib, Acute CVA, HTN urgency this admission, HTN, DM2, Hypothyroidism, HLD Clinical Indicators: 08/31 H&P: "New onset P. A fib, Dysarthria - possible CVA vs Encephalopathy, Hypertensive urgency-Due to possibility of stroke oral blood pressure medications will be held and labetalol administered if systolic greater than 200 diastolic greater than 120, Lactic acidosis - likely secondary to A fib with hypoperfusion - Limit IVF due to HTN. Treatment: DNR Please clarify and document your clinical opinion in the discharge summary if any relationship (due to, caused by, secondary to) exists between these two diagnoses. Please include clinical findings supporting your diagnosis. Cardiac arrest due to specified cause (please document cause) Cardiac arrest cause unknown Other explanation of clinical findings (please specify) Unable to determine (no explanation for clinical findings) (Last Revision: April 2017) MTDD
--- NOTE | 2020-09-03 11:02 | CDI ---
Documentation Clarification Form Mortality Review Date: 09/02/2020 07:40:00 PM From: Stefany Quach RN, CCDS Admit Date: 08/31/2020 10:58:00 AM Patient Name: Dar Marie Visit Number: [id number] Discharge Date: 08/31/2020 11:09:00 PM ATTENTION: The Clinical Documentation Specialists (CDI) and [facility] Coding Staff appreciate your assistance in clarifying documentation. Please respond to the clarification below the line at the bottom and electronically sign. The CDI & [facility] Coding staff will review the response and follow-up if needed. Please note: Queries are made part of the Legal Health Record. If you have any questions, please contact the author of this message via ITS. Dr. Santana Documentation of COPD Exacerbation is located in the 08/31 ED note and the 08/31 Neurology Consult. Please indicate if this was a clinically significant diagnosis to accurately reflect the patient's SOI/ROM. History/Risk Factors: GERD, HTN, no documented Hx of COPD Present or past smoker: former smoker Home O2: none Clinical Indicators: 08/31 ED Note: "Clinical Impression: COPD exacerbation." 08/31 Neurology Consult: "Was felt that the patient had COPD exacerbation by the ED team." 08/31 H&P: "Chief Complaint: Chest x-ray showed no acute process and hyperinflation compatible COPD." 08/31 CXR: "Hyperinflation compatible with COPD. No evidence for acute pulmonary disease." 08/31 952 Admission Vital Signs/Pulse Oximetry: Temp 99, HR 90, RR 24 labored w/ SOB, B/P 207/123, Spo2 90% on RA 08/31 H&P: Lung and Respiratory Assessment: "Lungs: Decreased breath sounds bilateral, no rhonchi, no rales, no wheeze, no accessory muscle use." Treatment: Nebulizers: 08/31 0959 Ventolin 5mg INH x 1 & Atrovent .5mg INH x 1 08/31 1700 IVPB Magnesium Sulfate 1 gm x 2 doses 08/31 1058 Solu-Medrol 125 mg IVP OT O2 @ 2-3 liters In your professional opinion, can you please clarify if the above findings and treatment signify any of the following? Acute Exacerbation of Chronic Obstructive Pulmonary Disease (COPD) COPD w/o exacerbation Other condition, please specify Unable to determine (Last Revision: April 2017) COPD without exacerbation MTDD
--- NOTE | 2020-09-03 11:04 | CDI ---
Documentation Clarification Form Mortality Review Date: 09/02/2020 07:56:00 PM From: Stefany Quach RN, CCDS Admit Date: 08/31/2020 10:58:00 AM Patient Name: Dar Marie Visit Number: [id number] Discharge Date: 08/31/2020 11:09:00 PM ATTENTION: The Clinical Documentation Specialists (CDI) and [facility] Coding Staff appreciate your assistance in clarifying documentation. Please respond to the clarification below the line at the bottom and electronically sign. The CDI & [facility] Coding staff will review the response and follow-up if needed. Please note: Queries are made part of the Legal Health Record. If you have any questions, please contact the author of this message via ITS. Dr. Harper Aguila Your patient has the documented diagnosis of Cardiac Arrest in the D/C Summary with new onset paroxysmal atrial fibrillation and CVA. 08/31 2106 Nursing Notes: "During shift change and report performed neuro check at 1950. Per day shift RN no new deficits noted. PT was at current baseline and lethargic at this time of assessment. Received a call from telemetry 2017 about HR being in 40's. Upon assessment PT unresponsive. Pronounced PT of passing at 2027." A relationship between diagnoses cannot be assumed unless documented as such by the attending physician. In order to capture the severity of condition; please document the relationship, if any, between these diagnoses. History/Risk Factors: New onset atrial Fib, Acute CVA, HTN urgency this admission, HTN, DM2, Hypothyroidism, HLD Clinical Indicators: 08/31 H&P: "New onset P. A fib, Dysarthria - possible CVA vs Encephalopathy, Hypertensive urgency-Due to possibility of stroke oral blood pressure medications will be held and labetalol administered if systolic greater than 200 diastolic greater than 120, Lactic acidosis - likely secondary to A fib with hypoperfusion - Limit IVF due to HTN. Treatment: DNR Please clarify and document your clinical opinion in the discharge summary if any relationship (due to, caused by, secondary to) exists between these two diagnoses. Please include clinical findings supporting your diagnosis. Cardiac arrest due to specified cause (please document cause) Cardiac arrest cause unknown Other explanation of clinical findings (please specify) Unable to determine (no explanation for clinical findings) (Last Revision: April 2017) Cardiac arrest cause unknown MTDD
== END 2020-08-31 23:09 | disposition expired | DRG 65 ==
LOC: EC 09:52 → 4SSUR 10:58 → 3SCARD 13:10
PROVIDERS: ADMIT Internal Medicine; ATTEND Internal Medicine
DX: I63.40 Cerebral infarction due to embolism of unspecified cerebral artery (principal); E87.1 Hypo-osmolality and hyponatremia; E87.2 Acidosis; D69.6 Thrombocytopenia, unspecified; R47.01 Aphasia; E11.319 Type 2 diabetes mellitus with unspecified diabetic retinopathy without macular edema; C61 Malignant neoplasm of prostate; I11.9 Hypertensive heart disease without heart failure; I48.0 Paroxysmal atrial fibrillation; I71.9 Aortic aneurysm of unspecified site, without rupture; E11.65 Type 2 diabetes mellitus with hyperglycemia; I46.9 Cardiac arrest, cause unspecified; J44.9 Chronic obstructive pulmonary disease, unspecified; Z79.4 Long term (current) use of insulin; Z66 Do not resuscitate; Z20.822 Contact with and (suspected) exposure to COVID-19; R47.1 Dysarthria and anarthria; I16.0 Hypertensive urgency; R29.708 NIHSS score 8; E78.5 Hyperlipidemia, unspecified; E03.9 Hypothyroidism, unspecified; E04.9 Nontoxic goiter, unspecified; K21.9 Gastro-esophageal reflux disease without esophagitis; N40.0 Benign prostatic hyperplasia without lower urinary tract symptoms; M19.90 Unspecified osteoarthritis, unspecified site; F32.9 Major depressive disorder, single episode, unspecified; R32 Unspecified urinary incontinence; I45.10 Unspecified right bundle-branch block; Z79.890 Hormone replacement therapy; Z79.899 Other long term (current) drug therapy; Z79.82 Long term (current) use of aspirin; Z98.890 Other specified postprocedural states; Z87.891 Personal history of nicotine dependence; Z88.8 Allergy status to other drugs, medicaments and biological substances; Z82.49 Family history of ischemic heart disease and other diseases of the circulatory system; Z80.9 Family history of malignant neoplasm, unspecified
CPT/HCPCS: 36415; 70450; 70496; 70498; 71046; 80053; 81001; 83605; 83735; 83880; 84443; 84484; 85025; 85610; 85730; 87040; 87502; 87635; 93005; 94640; 96374; 96375; 99285